=== PATIENT | female | born 1950 | race Caucasian/White ===

== ENCOUNTER 2022-04-22 11:44 | Outpatient (CLI) | payer MEDICARE, SELFPAY ==
[2022-04-22 15:16] LABS: Absolute Lymphocyte Count 1.18 X10^3/uL (0.83-4.51); Absolute Neutrophil Count 4.1 X10^3/uL (2.0-7.7); Basophil# 0.07 X10^3/uL; Basophil% 1.1 % (0-1); Eosinophil# 0.27 X10^3/uL; Eosinophils% 4.3 % (0-5); Hematocrit 37.2 % (37-47); Hemoglobin 10.6 g/dL (12.0-15.0); Lymphocyte # 1.18 X10^3/ul (0.83-4.51); Lymphocyte % 18.8 % (19-41); Mean Corp Hgb Conc 28.5 g/dL (32-36); Mean Corpuscular Hgb 25.3 pg (27.0-32.0); Mean Corpuscular Volume 88.8 fL (81-99); Mean Platelet Vol. 10.9 fl (6.2-12.0); Monocyte# 0.64 X10^3/uL; Monocyte% 10.2 % (0-10); NRBC Flagged by Analyzer 0 % (0-5); Neutrophil # 4.12 X10^3/uL (2.7-7.7); Neutrophil % 65.4 % (47-70); Platelet Count 381 K/mm3 (150-450); RBC Distribution Width CV 14.1 % (11.6-14.6); Red Blood Count 4.19 M/mm3 (4.2-5.4); White Blood Count 6.3 K/mm3 (4.4-11.0)
[2022-04-22 15:33] LABS: ALB/GLOB Ratio 0.9 RATIO (0.9-2.4); AST(SGOT) 18 U/L (15-37); Alanine Aminotransfer ALT/SGPT 20 U/L (13-56); Albumin, Serum 3.4 g/dL (3.2-5.0); Alkaline Phosphatase 63 U/L (45-117); Anion Gap 7 (5-15); BUN 11 mg/dL (7-18); CRP 4.45 mg/L (0.0-3.0); Calcium,Total 8.6 mg/dL (8.5-10.1); Chloride 105 mmol/L (98-107); EST Glomerular Filtration Rate 52 mL/min (>60); Est Glom Filt Rate - Afr Amer 63 mL/min (>60); Globulin 3.6 g/dL (2.2-4.2); Glucose 116 mg/dL (74-106); Potassium 3.9 mmol/L (3.5-5.1); Rheumatoid Factor < 10.0 IU/mL (<15); Sodium Level 140 mmol/L (136-145)
[2022-04-22 15:58] LABS: Erythrocyte Sedimentation Rate 25 mm/hr (0-30)
[2022-04-25 08:33] LABS: Hepatitis B Surface Antibody Non-Reactive; Hepatitis B Surface Antigen Non-Reactive (Nonreactive); Hepatitis C Antibody Non-Reactive (Nonreactive)
[2022-04-26 08:49] LABS: CCP IgG Antibodies 5 units (0-19)
[2022-04-26 09:31] LABS: ANTINUCLEAR ANTIBODIES DIRECT Negative (Negative)
== END 2022-04-22 23:59 | disposition home or self-care (01) ==
PROVIDERS: PCP Nurse Practitioner Primary Care; Referring Provider Internal Medicine Rheumatology; Visit Provider Internal Medicine Rheumatology
DX: M06.4 Inflammatory polyarthropathy (principal); M35.00 Sjogren syndrome, unspecified; I48.91 Unspecified atrial fibrillation; M79.7 Fibromyalgia; I10 Essential (primary) hypertension; E78.5 Hyperlipidemia, unspecified; K58.1 Irritable bowel syndrome with constipation; K21.9 Gastro-esophageal reflux disease without esophagitis; F32.A Depression, unspecified; Z87.11 Personal history of peptic ulcer disease; G47.33 Obstructive sleep apnea (adult) (pediatric)
CPT/HCPCS: 36415; 80053; 85025; 85652; 86038; 86140; 86200; 86431; 86706; 86803; 87340

== ENCOUNTER → 2022-05-24 | Outpatient (CLI) | payer MEDICARE, SELFPAY ==
[2022-05-24 09:49] LABS: Absolute Neutrophil Count 4.2 X10^3/uL (2.0-7.7); Basophil# 0.11 X10^3/uL; Basophil% 1.7 % (0-1); Eosinophil# 0.19 X10^3/uL; Eosinophils% 2.9 % (0-5); Hematocrit 40.6 % (37-47); Hemoglobin 12.3 g/dL (12.0-15.0); Lymphocyte % 22.7 % (19-41); Mean Corp Hgb Conc 30.3 g/dL (32-36); Mean Corpuscular Hgb 27.4 pg (27.0-32.0); Mean Corpuscular Volume 90.4 fL (81-99); Mean Platelet Vol. 10.6 fl (6.2-12.0); Monocyte# 0.62 X10^3/uL; Monocyte% 9.4 % (0-10); NRBC Flagged by Analyzer 0 % (0-5); Neutrophil # 4.16 X10^3/uL (2.7-7.7); Platelet Count 331 K/mm3 (150-450); RBC Distribution Width CV 15.7 % (11.6-14.6); RBC Distribution Width SD 50.2 fl (35.1-43.9); Red Blood Count 4.49 M/mm3 (4.2-5.4); White Blood Count 6.6 K/mm3 (4.4-11.0)
[2022-05-24 10:27] LABS: AST(SGOT) 19 U/L (15-37); Alanine Aminotransfer ALT/SGPT 14 U/L (13-56); Albumin, Serum 3.6 g/dL (3.2-5.0); Alkaline Phosphatase 65 U/L (45-117); Anion Gap 9 (5-15); BUN 8 mg/dL (7-18); BUN/Creat Ratio 7.3 RATIO (10-20); Calcium,Total 9.5 mg/dL (8.5-10.1); Chloride 107 mmol/L (98-107); EST Glomerular Filtration Rate 52 mL/min (>60); Est Glom Filt Rate - Afr Amer 63 mL/min (>60); Globulin 3.7 g/dL (2.2-4.2); Glucose 145 mg/dL (74-106); Potassium 3.3 mmol/L (3.5-5.1); Protein, Total 7.3 g/dL (6.4-8.2); Sodium Level 142 mmol/L (136-145)
== END | disposition home or self-care (01) ==
LOC: MTLAB 08:53
PROVIDERS: PCP Nurse Practitioner Primary Care; Referring Provider Internal Medicine Rheumatology; Visit Provider Internal Medicine Rheumatology
DX: M06.4 Inflammatory polyarthropathy (principal); M35.00 Sjogren syndrome, unspecified; I48.91 Unspecified atrial fibrillation; I10 Essential (primary) hypertension; E78.5 Hyperlipidemia, unspecified; K58.1 Irritable bowel syndrome with constipation; K21.9 Gastro-esophageal reflux disease without esophagitis; Z79.899 Other long term (current) drug therapy
CPT/HCPCS: 36415; 80053; 85025

== ENCOUNTER → 2022-06-07 | Outpatient (CLI) | payer MEDICARE, SELFPAY ==
[2022-06-07 18:02] LABS: ALB/GLOB Ratio 0.9 RATIO (0.9-2.4); AST(SGOT) 19 U/L (15-37); Alanine Aminotransfer ALT/SGPT 18 U/L (13-56); Albumin, Serum 3.4 g/dL (3.2-5.0); Alkaline Phosphatase 66 U/L (45-117); Anion Gap 8 (5-15); BUN 9 mg/dL (7-18); BUN/Creat Ratio 8.9 RATIO (10-20); Chloride 106 mmol/L (98-107); Creatinine, Serum 1.01 mg/dL (0.55-1.02); EST Glomerular Filtration Rate 57 mL/min (>60); Est Glom Filt Rate - Afr Amer 69 mL/min (>60); Globulin 3.6 g/dL (2.2-4.2); Glucose 112 mg/dL (74-106); Potassium 3.8 mmol/L (3.5-5.1); Sodium Level 142 mmol/L (136-145)
== END | disposition home or self-care (01) ==
LOC: MTLAB 15:10
PROVIDERS: PCP Nurse Practitioner Primary Care; Referring Provider Internal Medicine Rheumatology; Visit Provider Internal Medicine Rheumatology
DX: M06.4 Inflammatory polyarthropathy (principal); Z79.899 Other long term (current) drug therapy
CPT/HCPCS: 36415; 80053

== ENCOUNTER → 2022-06-20 | Outpatient (CLI) | payer MEDICARE, SELFPAY ==
[2022-06-20 15:46] LABS: Absolute Lymphocyte Count 1.31 X10^3/uL (0.83-4.51); Absolute Neutrophil Count 3.7 X10^3/uL (2.0-7.7); Basophil# 0.07 X10^3/uL; Basophil% 1.2 % (0-1); Eosinophil# 0.16 X10^3/uL; Eosinophils% 2.7 % (0-5); Hematocrit 39.8 % (37-47); Hemoglobin 12.6 g/dL (12.0-15.0); Lymphocyte # 1.31 X10^3/ul (0.83-4.51); Lymphocyte % 22.5 % (19-41); Mean Corp Hgb Conc 31.7 g/dL (32-36); Mean Corpuscular Hgb 28.6 pg (27.0-32.0); Mean Corpuscular Volume 90.2 fL (81-99); Monocyte# 0.62 X10^3/uL; Monocyte% 10.6 % (0-10); NRBC Flagged by Analyzer 0 % (0-5); Neutrophil # 3.65 X10^3/uL (2.7-7.7); Neutrophil % 62.7 % (47-70); Platelet Count 304 K/mm3 (150-450); RBC Distribution Width CV 15.9 % (11.6-14.6); RBC Distribution Width SD 51.3 fl (35.1-43.9); Red Blood Count 4.41 M/mm3 (4.2-5.4); White Blood Count 5.8 K/mm3 (4.4-11.0)
[2022-06-20 16:44] LABS: AST(SGOT) 17 U/L (15-37); Alanine Aminotransfer ALT/SGPT 14 U/L (13-56); Albumin, Serum 3.4 g/dL (3.2-5.0); Alkaline Phosphatase 63 U/L (45-117); Anion Gap 8 (5-15); BUN 10 mg/dL (7-18); BUN/Creat Ratio 10.8 RATIO (10-20); Calcium,Total 9.1 mg/dL (8.5-10.1); Chloride 106 mmol/L (98-107); Creatinine, Serum 0.92 mg/dL (0.55-1.02); EST Glomerular Filtration Rate 64 mL/min (>60); Est Glom Filt Rate - Afr Amer 77 mL/min (>60); Globulin 3.5 g/dL (2.2-4.2); Glucose 108 mg/dL (74-106); Potassium 3.4 mmol/L (3.5-5.1); Protein, Total 6.9 g/dL (6.4-8.2); Sodium Level 142 mmol/L (136-145)
== END | disposition home or self-care (01) ==
LOC: MTLAB 14:03
PROVIDERS: PCP Nurse Practitioner Primary Care; Referring Provider Internal Medicine Rheumatology; Visit Provider Internal Medicine Rheumatology
DX: M06.4 Inflammatory polyarthropathy (principal); Z79.899 Other long term (current) drug therapy
CPT/HCPCS: 36415; 80053; 85025

== ENCOUNTER → 2023-01-02 | Outpatient (CLI) | payer MEDICARE, SELFPAY ==
[2023-01-02 17:58] LABS: Absolute Lymphocyte Count 1.45 X10^3/uL (0.83-4.51); Absolute Neutrophil Count 5.4 X10^3/uL (2.0-7.7); Basophil# 0.08 X10^3/uL; Eosinophil# 0.16 X10^3/uL; Hematocrit 44.2 % (37-47); Hemoglobin 13.9 g/dL (12.0-15.0); Lymphocyte # 1.45 X10^3/ul (0.83-4.51); Lymphocyte % 18.4 % (19-41); Mean Corp Hgb Conc 31.4 g/dL (32-36); Mean Corpuscular Hgb 30.4 pg (27.0-32.0); Mean Corpuscular Volume 96.7 fL (81-99); Mean Platelet Vol. 10.7 fl (6.2-12.0); Monocyte# 0.83 X10^3/uL; Monocyte% 10.5 % (0-10); NRBC Flagged by Analyzer 0 % (0-5); Neutrophil # 5.35 X10^3/uL (2.7-7.7); Neutrophil % 67.8 % (47-70); Platelet Count 277 K/mm3 (150-450); RBC Distribution Width CV 14.9 % (11.6-14.6); RBC Distribution Width SD 52.6 fl (35.1-43.9); Red Blood Count 4.57 M/mm3 (4.2-5.4); White Blood Count 7.9 K/mm3 (4.4-11.0)
[2023-01-02 18:55] LABS: ALB/GLOB Ratio 1.1 RATIO (0.9-2.4); AST(SGOT) 19 U/L (15-37); Alanine Aminotransfer ALT/SGPT 22 U/L (13-56); Albumin, Serum 3.7 g/dL (3.2-5.0); Alkaline Phosphatase 65 U/L (45-117); Anion Gap 5 (5-15); BUN 9 mg/dL (7-18); BUN/Creat Ratio 9.6 RATIO (10-20); Calcium,Total 9.2 mg/dL (8.5-10.1); Chloride 107 mmol/L (98-107); Creatinine, Serum 0.94 mg/dL (0.55-1.02); EST Glomerular Filtration Rate 63 mL/min (>60); Est Glom Filt Rate - Afr Amer 76 mL/min (>60); Globulin 3.5 g/dL (2.2-4.2); Glucose 102 mg/dL (74-106); Potassium 3.7 mmol/L (3.5-5.1); Protein, Total 7.2 g/dL (6.4-8.2); Sodium Level 139 mmol/L (136-145)
== END | disposition home or self-care (01) ==
LOC: MTLAB 14:44
PROVIDERS: PCP Nurse Practitioner Primary Care; Referring Provider Internal Medicine Rheumatology; Visit Provider Internal Medicine Rheumatology
DX: M06.4 Inflammatory polyarthropathy (principal); Z79.899 Other long term (current) drug therapy
CPT/HCPCS: 36415; 80053; 85025

== ENCOUNTER → 2023-02-20 | Outpatient (CLI) | payer MEDICARE, SELFPAY ==
[2023-02-20 18:31] LABS: Absolute Lymphocyte Count 1.64 X10^3/uL (0.83-4.51); Absolute Neutrophil Count 6.5 X10^3/uL (2.0-7.7); Basophil# 0.12 X10^3/uL; Basophil% 1.3 % (0-1); Eosinophil# 0.29 X10^3/uL; Hematocrit 44.3 % (37-47); Hemoglobin 14.4 g/dL (12.0-15.0); Lymphocyte # 1.64 X10^3/ul (0.83-4.51); Lymphocyte % 17.2 % (19-41); Mean Corp Hgb Conc 32.5 g/dL (32-36); Mean Corpuscular Hgb 31.2 pg (27.0-32.0); Mean Corpuscular Volume 95.9 fL (81-99); Monocyte# 0.96 X10^3/uL; Monocyte% 10.1 % (0-10); NRBC Flagged by Analyzer 0 % (0-5); Neutrophil # 6.52 X10^3/uL (2.7-7.7); Neutrophil % 68.2 % (47-70); Platelet Count 309 K/mm3 (150-450); RBC Distribution Width CV 14.1 % (11.6-14.6); Red Blood Count 4.62 M/mm3 (4.2-5.4); White Blood Count 9.6 K/mm3 (4.4-11.0)
[2023-02-20 18:50] LABS: ALB/GLOB Ratio 0.9 RATIO (0.9-2.4); AST(SGOT) 16 U/L (15-37); Alanine Aminotransfer ALT/SGPT 14 U/L (13-56); Albumin, Serum 3.6 g/dL (3.2-5.0); Alkaline Phosphatase 69 U/L (45-117); Anion Gap 6 (5-15); BUN 13 mg/dL (7-18); BUN/Creat Ratio 12.1 RATIO (10-20); Calcium,Total 9.4 mg/dL (8.5-10.1); Chloride 107 mmol/L (98-107); Creatinine, Serum 1.07 mg/dL (0.55-1.02); EST Glomerular Filtration Rate 54 mL/min (>60); Est Glom Filt Rate - Afr Amer 65 mL/min (>60); Globulin 3.8 g/dL (2.2-4.2); Glucose 120 mg/dL (74-106); Potassium 3.7 mmol/L (3.5-5.1); Protein, Total 7.4 g/dL (6.4-8.2); Sodium Level 140 mmol/L (136-145)
== END | disposition home or self-care (01) ==
LOC: MTLAB 15:09
PROVIDERS: PCP Nurse Practitioner Primary Care; Referring Provider Internal Medicine Rheumatology; Visit Provider Internal Medicine Rheumatology
DX: M06.4 Inflammatory polyarthropathy (principal); M79.7 Fibromyalgia; Z79.899 Other long term (current) drug therapy
CPT/HCPCS: 36415; 80053; 85025

== ENCOUNTER → 2023-05-03 | Outpatient (CLI) | payer MEDICARE, SELFPAY ==
[2023-05-03 15:15] LABS: Absolute Lymphocyte Count 1.45 X10^3/uL (0.83-4.51); Absolute Neutrophil Count 4.8 X10^3/uL (2.0-7.7); Basophil# 0.09 X10^3/uL; Basophil% 1.2 % (0-1); Eosinophil# 0.17 X10^3/uL; Eosinophils% 2.3 % (0-5); Hematocrit 46.2 % (37-47); Hemoglobin 14.5 g/dL (12.0-15.0); Lymphocyte # 1.45 X10^3/ul (0.83-4.51); Lymphocyte % 19.8 % (19-41); Mean Corp Hgb Conc 31.4 g/dL (32-36); Mean Corpuscular Hgb 31.2 pg (27.0-32.0); Mean Corpuscular Volume 99.4 fL (81-99); Mean Platelet Vol. 11.3 fl (6.2-12.0); Monocyte% 10.9 % (0-10); NRBC Flagged by Analyzer 0 % (0-5); Neutrophil # 4.77 X10^3/uL (2.7-7.7); Neutrophil % 65.4 % (47-70); Platelet Count 266 K/mm3 (150-450); RBC Distribution Width CV 14.5 % (11.6-14.6); RBC Distribution Width SD 51.3 fl (35.1-43.9); Red Blood Count 4.65 M/mm3 (4.2-5.4); White Blood Count 7.3 K/mm3 (4.4-11.0)
[2023-05-03 15:39] LABS: ALB/GLOB Ratio 1.1 RATIO (0.9-2.4); AST(SGOT) 17 U/L (15-37); Alanine Aminotransfer ALT/SGPT 17 U/L (13-56); Albumin, Serum 3.7 g/dL (3.2-5.0); Alkaline Phosphatase 67 U/L (45-117); Anion Gap 7 (5-15); BUN 12 mg/dL (7-18); BUN/Creat Ratio 11.2 RATIO (10-20); Calcium,Total 9.2 mg/dL (8.5-10.1); Chloride 106 mmol/L (98-107); Creatinine, Serum 1.07 mg/dL (0.55-1.02); EST Glomerular Filtration Rate 54 mL/min (>60); Est Glom Filt Rate - Afr Amer 65 mL/min (>60); Globulin 3.5 g/dL (2.2-4.2); Glucose 96 mg/dL (74-106); Potassium 3.5 mmol/L (3.5-5.1); Protein, Total 7.2 g/dL (6.4-8.2); Sodium Level 141 mmol/L (136-145)
== END | disposition home or self-care (01) ==
LOC: MTLAB 11:54
PROVIDERS: PCP Nurse Practitioner Primary Care; Referring Provider Internal Medicine Rheumatology; Visit Provider Internal Medicine Rheumatology
DX: M06.4 Inflammatory polyarthropathy (principal); M35.00 Sjogren syndrome, unspecified; Z79.899 Other long term (current) drug therapy
CPT/HCPCS: 36415; 80053; 85025

== ENCOUNTER → 2023-07-21 | Outpatient (CLI) | payer MEDICARE, SELFPAY ==
[2023-07-21 15:17] LABS: Absolute Lymphocyte Count 0.84 X10^3/uL (0.83-4.51); Absolute Neutrophil Count 5.6 X10^3/uL (2.0-7.7); Basophil# 0.07 X10^3/uL; Basophil% 0.9 % (0-1); Eosinophil# 0.16 X10^3/uL; Eosinophils% 2.2 % (0-5); Hematocrit 45.3 % (37-47); Hemoglobin 14.9 g/dL (12.0-15.0); Lymphocyte # 0.84 X10^3/ul (0.83-4.51); Lymphocyte % 11.3 % (19-41); Mean Corp Hgb Conc 32.9 g/dL (32-36); Mean Corpuscular Hgb 32.9 pg (27.0-32.0); Mean Platelet Vol. 10.6 fl (6.2-12.0); Monocyte# 0.75 X10^3/uL; Monocyte% 10.1 % (0-10); NRBC Flagged by Analyzer 0 % (0-5); Neutrophil # 5.58 X10^3/uL (2.7-7.7); Neutrophil % 75.1 % (47-70); Platelet Count 369 K/mm3 (150-450); RBC Distribution Width CV 13.8 % (11.6-14.6); RBC Distribution Width SD 49.6 fl (35.1-43.9); Red Blood Count 4.53 M/mm3 (4.2-5.4); White Blood Count 7.4 K/mm3 (4.4-11.0)
[2023-07-21 15:37] LABS: ALB/GLOB Ratio 0.9 RATIO (0.9-2.4); AST(SGOT) 19 U/L (15-37); Alanine Aminotransfer ALT/SGPT 16 U/L (13-56); Albumin, Serum 3.4 g/dL (3.2-5.0); Alkaline Phosphatase 74 U/L (45-117); Anion Gap 7 (5-15); BUN 14 mg/dL (7-18); Calcium,Total 9.4 mg/dL (8.5-10.1); Chloride 106 mmol/L (98-107); Creatinine, Serum 1.08 mg/dL (0.55-1.02); EST Glomerular Filtration Rate 53 mL/min (>60); Est Glom Filt Rate - Afr Amer 64 mL/min (>60); Globulin 3.9 g/dL (2.2-4.2); Glucose 94 mg/dL (74-106); Potassium 4.4 mmol/L (3.5-5.1); Protein, Total 7.3 g/dL (6.4-8.2); Sodium Level 138 mmol/L (136-145)
== END | disposition home or self-care (01) ==
LOC: MTLAB 13:19
PROVIDERS: PCP Nurse Practitioner Primary Care; Referring Provider Internal Medicine Rheumatology; Visit Provider Internal Medicine Rheumatology
DX: M06.4 Inflammatory polyarthropathy (principal); M79.7 Fibromyalgia; Z79.899 Other long term (current) drug therapy
CPT/HCPCS: 36415; 80053; 85025

== ENCOUNTER → 2023-11-16 | Outpatient (CLI) | payer MEDICARE, SELFPAY ==
[2023-11-16 12:07] LABS: Absolute Lymphocyte Count 1.49 X10^3/uL (0.83-4.51); Absolute Neutrophil Count 6.4 X10^3/uL (2.0-7.7); Basophil# 0.13 X10^3/uL; Basophil% 1.4 % (0-1); Eosinophil# 0.22 X10^3/uL; Eosinophils% 2.4 % (0-5); Hemoglobin 15.1 g/dL (12.0-15.0); Lymphocyte # 1.49 X10^3/ul (0.83-4.51); Lymphocyte % 16.1 % (19-41); Mean Corp Hgb Conc 32.1 g/dL (32-36); Mean Corpuscular Hgb 32.3 pg (27.0-32.0); Mean Corpuscular Volume 100.6 fL (81-99); Mean Platelet Vol. 10.2 fl (6.2-12.0); Monocyte# 1.02 X10^3/uL; Monocyte% 11.1 % (0-10); NRBC Flagged by Analyzer 0 % (0-5); Neutrophil # 6.35 X10^3/uL (2.7-7.7); Neutrophil % 68.8 % (47-70); Platelet Count 309 K/mm3 (150-450); RBC Distribution Width CV 14.1 % (11.6-14.6); RBC Distribution Width SD 51.5 fl (35.1-43.9); Red Blood Count 4.67 M/mm3 (4.2-5.4); White Blood Count 9.2 K/mm3 (4.4-11.0)
[2023-11-16 13:18] LABS: AST(SGOT) 15 U/L (15-37); Alanine Aminotransfer ALT/SGPT 14 U/L (13-56); Albumin, Serum 3.6 g/dL (3.2-5.0); Alkaline Phosphatase 80 U/L (45-117); Anion Gap 11 (5-15); BUN 12 mg/dL (7-18); BUN/Creat Ratio 10.3 RATIO (10-20); Calcium,Total 9.2 mg/dL (8.5-10.1); Chloride 107 mmol/L (98-107); Creatinine, Serum 1.17 mg/dL (0.55-1.02); EST Glomerular Filtration Rate 48 mL/min (>60); Est Glom Filt Rate - Afr Amer 58 mL/min (>60); Globulin 3.6 g/dL (2.2-4.2); Glucose 112 mg/dL (74-106); Protein, Total 7.2 g/dL (6.4-8.2); Sodium Level 143 mmol/L (136-145)
== END | disposition home or self-care (01) ==
LOC: MTLAB 10:36
PROVIDERS: PCP Nurse Practitioner Primary Care; Referring Provider Internal Medicine Rheumatology; Visit Provider Internal Medicine Rheumatology
DX: M06.4 Inflammatory polyarthropathy (principal); M79.7 Fibromyalgia; Z79.899 Other long term (current) drug therapy
CPT/HCPCS: 36415; 80053; 85025

== ENCOUNTER → 2023-12-21 | Outpatient (CLI) | payer MEDICARE, SELFPAY ==
[2023-12-21 10:47] LABS: ALB/GLOB Ratio 1.1 RATIO (0.9-2.4); AST(SGOT) 19 U/L (15-37); Alanine Aminotransfer ALT/SGPT 15 U/L (13-56); Albumin, Serum 3.7 g/dL (3.2-5.0); Alkaline Phosphatase 79 U/L (45-117); Anion Gap 5 (5-15); BUN 11 mg/dL (7-18); BUN/Creat Ratio 9.5 RATIO (10-20); Chloride 107 mmol/L (98-107); Creatinine, Serum 1.16 mg/dL (0.55-1.02); EST Glomerular Filtration Rate 49 mL/min (>60); Est Glom Filt Rate - Afr Amer 59 mL/min (>60); Globulin 3.4 g/dL (2.2-4.2); Glucose 111 mg/dL (74-106); Potassium 3.5 mmol/L (3.5-5.1); Protein, Total 7.1 g/dL (6.4-8.2); Sodium Level 141 mmol/L (136-145)
== END | disposition home or self-care (01) ==
LOC: MTLAB 08:27
PROVIDERS: PCP Nurse Practitioner Primary Care; Referring Provider Internal Medicine Rheumatology; Visit Provider Internal Medicine Rheumatology
DX: M06.4 Inflammatory polyarthropathy (principal); Z79.899 Other long term (current) drug therapy
CPT/HCPCS: 36415; 80053

== ENCOUNTER 2024-01-16 13:42 | Inpatient (IN) | payer MEDICARE, SELFPAY ==
[2024-01-16] VITALS (32 sets, daily range): BP systolic 49–143; BP diastolic 28–97; PULSE 6–144; RESP 13–24; TEMP 36.2–36.8; O2SAT 76–100; BMI 44.1; BMI 39.2
--- NOTE | 2024-01-16 13:44 | EKG12_ITS ---
Test Reason : ARREST Blood Pressure : / mmHG Vent. Rate : 068 BPM Atrial Rate : 000 BPM P-R Int : 000 ms QRS Dur : 088 ms QT Int : 452 ms P-R-T Axes : 000 033 229 degrees QTc Int : 480 ms Atrial fibrillation with premature ventricular or aberrantly conducted complexes ST & T wave abnormality, consider inferior ischemia ST & T wave abnormality, consider anterolateral ischemia Prolonged QT Abnormal ECG Confirmed by BUDDY FLORES, FABY ([id number]), newspaper managing editor CARLTON GERONIMO ([id number]) on 01/18/2024 11:18:40 AM Referred By: OSEI Confirmed By:FABY GOODWIN MD
--- NOTE | 2024-01-16 13:54 | EKG12_ITS ---
Test Reason : AFIB Blood Pressure : / mmHG Vent. Rate : 144 BPM Atrial Rate : 000 BPM P-R Int : 000 ms QRS Dur : 080 ms QT Int : 310 ms P-R-T Axes : 000 043 076 degrees QTc Int : 479 ms Critical Test Result: High HR Atrial fibrillation Nonspecific ST and T wave abnormality Abnormal ECG When compared with ECG of 16-JAN-2024 13:44, MANUAL COMPARISON REQUIRED, DATA IS UNCONFIRMED Confirmed by BUDDY FLORES, FABY ([id number]), medical editor CARLTON GERONIMO ([id number]) on 01/17/2024 1:14:13 PM Referred By: GERMÁN Confirmed By:FABY GOODWIN MD
--- NOTE | 2024-01-16 13:56 | CT_ITS ---
STUDY: CT BRAIN WITHOUT CONTRAST REASON FOR EXAM: Female, 73 years old. Unresponsive RADIATION DOSAGE (If Supplied By Facility): CTDIvol = ( 44.99 ) mGy, DLP = ( 796.11 ) mGycm TECHNIQUE: Transaxial CT imaging of the brain was performed without administration of intravenous contrast material. Individualized dose optimization techniques were used for this CT. COMPARISON: No relevant priors. FINDINGS: Normal soft tissue structures. There is a 7.6 mm x 5.8 mm ossification along the posterior inner table of the left frontal bone. This may represent a calcified meningioma. There is mild cerebral atrophy with widening of the extra-axial spaces and ventricular dilatation. Normal white matter tracts of the cerebral hemispheres. Normal basal ganglia and thalami. Normal brainstem. Normal cerebellum. There is no intracranial hemorrhage. There are no findings of an acute ischemic infarction. Mucosal thickening of the posterior aspect of the right ethmoid sinus. CT/Brain/Head without Contrast IMPRESSION: Chronic involutional changes of the brain. Questionable 7.6 mm x 5.8 mm calcified meningioma along the posterior inner table of the left frontal bone. Electronically Signed: Nathan Levy MD at 14:42 EDT ,
--- NOTE | 2024-01-16 13:58 | NURSING ---
NO OLD EKGS
[2024-01-16 14:03] LABS: Hematocrit 50.2 % (37-47); Mean Corp Hgb Conc 31.9 g/dL (32-36); Mean Corpuscular Hgb 31.3 pg (27.0-32.0); Mean Corpuscular Volume 98.2 fL (81-99); POSITIVE COUNT YES; POSITIVE MORPHOLOGY YES; Platelet Count 261 K/mm3 (150-450); RBC Distribution Width CV 12.8 % (11.6-14.6); RBC Distribution Width SD 46.5 fl (35.1-43.9); Red Blood Count 5.11 M/mm3 (4.2-5.4); White Blood Count 7.9 K/mm3 (4.4-11.0)
[2024-01-16 14:04] LABS: Differential Indicated MANUAL DIFF
[2024-01-16] MEDS: 0.9% Normal Saline (1000mL) 1,000 ML 999 ML IV (14:04)
[2024-01-16 14:12] LABS: International Normalized Ratio 1.6; Prothrombin Time (Protime)PT. 19.4 SECONDS (11.7-14.9)
--- NOTE | 2024-01-16 14:14 | EX.ED.CRITCA ---
HPI History of Present Illness Chief Complaint: CPR Informant: spouse/S.O. and EMS Onset/Context/Timing Onset: Today Timing: Continuous Current Severity: Severe Maximum Severity: Severe Associated Symptoms Associated Symptoms: abdominal pain, chest pain, chills, cough, fever, vomiting, diarrhea, palpitations, suicidal thoughts and other Narrative Narrative: 73-year-old female history of A-fib and prediabetes. went out to do some errands when he came home she was sitting in a reclining chair under her bottom split-level. He went down to see her and she was unresponsive. He tried to wake her up by shaking her hand and she did not come to. He called 911 who wanted him to place the patient on the floor and started CPR which he did. Squad arrived quickly. According to them the patient was unresponsive in asystole. They placed a left humeral IO started CPR and gave her 2 rounds of epinephrine with return of spontaneous circulation and pulse. Patient remained unresponsive the entire time. They placed an i-gel airway and came to the hospital. states she has had no recent illness. 1 week ago she was in [place] [facility] in [place] for A-fib RVR which resolved and she went home after medication. Prior similar symptoms: No Recent Illness/Hospitalization: No [facility] Medical History Cataract Kidney stones Home Medications atorvastatin 40 mg tablet 40 mg PO DAILY 07/21/23 [History Last Taken Unknown] azelaic acid 15 % topical foam 1 applic topical BID 07/21/23 [History Last Taken Unknown] docusate sodium 100 mg capsule (Colace) 100 mg PO BID 07/21/23 [History Last Taken Unknown] duloxetine 30 mg capsule,delayed release 30 mg PO DAILY 07/21/23 [History Last Taken Unknown] ferrous sulfate 325 mg (65 mg iron) tablet 325 mg PO DAILY 07/21/23 [History Last Taken Unknown] fluticasone propionate 50 mcg/actuation nasal spray,suspension (Flonase Allergy Relief) 1 spray intranasal DAILY 07/21/23 [History Last Taken Unknown] methotrexate 2.5 mg/mL oral solution PO 07/21/23 [History Last Taken Unknown] pantoprazole 40 mg tablet,delayed release 40 mg PO DAILY 07/21/23 [History Last Taken Unknown] rivaroxaban 20 mg tablet (Xarelto) 20 mg PO DAILY 07/21/23 [History Last Taken Unknown] sotalol 120 mg tablet 120 mg PO BID 07/21/23 [History Last Taken Unknown] tramadol 50 mg tablet 50 mg PO BID PRN 07/21/23 [History Last Taken Unknown] Allergy/AdvReac Type Severity Reaction Status Date / Time thimerosal Allergy Mild Other Verified 01/16/24 14:59 meperidine [From Demerol] AdvReac Nausea/Vom/ Verified 01/16/24 14:59 Diarrhea Surgical History History of carpal tunnel surgery History of hysterectomy Hx of cholecystectomy Social History Smoking Status: Never smoker ROS ROS ED ROS Narrative Patient is unable to give any history due to intubation. states she has not been recently ill. Review of Systems ROS Unobtainable: Denies due to endotracheal tube Constitutional Constitutional ED: Denies chills or fever(s) Eyes Eyes: Denies blurry vision ENT ENT ED: Denies ear pain Cardiovascular Cardiovascular: Denies chest pain Respiratory/Chest Respiratory/Chest: Denies cough or dyspnea Gastrointestinal Gastrointestinal: Denies abdominal pain Genitourinary Genitourinary ED: Denies dysuria or hematuria Musculoskeletal Musculoskeletal: Denies arthralgias Integumentary Denies abscess Neurologic Neurologic: Denies headache(s) Psychiatric Psychiatric: Denies anxiety or depression Endocrine Endocrinology: Denies polydipsia Hematologic/Lymphatic Hematologic/Lymphatic: Denies easy bleeding, easy bruising or lymphadenopathy Allergic/Immunologic Allergic/Immunologic ED: Denies mouth swelling, tongue swelling or urticaria EXAM Physical Exam Narrative Exam Narrative: 71-year-old female brought in by [employer]. Currently has a spontaneous and palpable carotid and radial pulse. She is completely unresponsive. She has an i-gel in place which I removed and placed a 7F ET tube the first attempt using the glide scope. Bilateral breath sounds were heard immediately. With good color change. H EENT exam pupils are dilated nonreactive. Neck nontender no signs of trauma. Lungs clear to auscultation bilaterally with bagging. Heart regular rhythm rate about 75 no murmur. Chest wall and ribs no signs of trauma. Abdomen soft no signs of trauma. Nondistended. Pelvic girdle intact. No signs of trauma to her upper or lower extremities. No deformity. They are warm to the touch. Neurologically she is completely unresponsive to verbal or noxious stimuli. She has attempted some spontaneous agonal breathing on her own. She is not moving her extremities. Const Vital Signs: 01/16/24 13:43 01/16/24 13:43 01/16/24 13:50 Temperature Temperature Source Pulse Rate 76 Respiratory Rate 18 Respiratory Effort Respiratory Pattern Blood Pressure Blood Pressure Mean Pulse Ox 85 87 Oxygen Delivery Method Ambu-Bag Ambu-Bag Ambu-Bag Oxygen Flow Rate (L/min) 95 15 Fraction of Inspired Oxygen (FIO2) 01/16/24 13:56 01/16/24 13:58 01/16/24 14:05 Temperature 97.7 F L Temperature Source Axillary Pulse Rate 6 L 62 Respiratory Rate 23 H 24 H Respiratory Effort Respiratory Pattern Blood Pressure 49/28 L 73/47 L Blood Pressure Mean 35 55 Pulse Ox 76 85 96 Oxygen Delivery Method Ambu-Bag Ambu-Bag Mechanical Ventilator Oxygen Flow Rate (L/min) 15 15 Fraction of Inspired Oxygen (FIO2) 01/16/24 14:07 01/16/24 14:11 01/16/24 14:18 Temperature 97.7 F L 97.7 F L Temperature Source Axillary Axillary Pulse Rate 65 72 57 L Respiratory Rate 14 14 16 Respiratory Effort Respiratory Pattern Blood Pressure 73/47 L 96/79 120/86 H Blood Pressure Mean 55 84 97 Pulse Ox 100 100 100 Oxygen Delivery Method Mechanical Ventilator Mechanical Ventilator Mechanical Ventilator Oxygen Flow Rate (L/min) 15 Fraction of Inspired Oxygen (FIO2) 01/16/24 14:32 01/16/24 14:41 01/16/24 14:47 Temperature 97.5 F L 97.5 F L Temperature Source Axillary Axillary Pulse Rate 69 60 81 Respiratory Rate 14 14 16 Respiratory Effort Respiratory Pattern Normal Blood Pressure 123/75 H 126/51 H Blood Pressure Mean 91 76 Pulse Ox 96 100 100 Oxygen Delivery Method Mechanical Ventilator Mechanical Ventilator Oxygen Flow Rate (L/min) Fraction of Inspired Oxygen (FIO2) 100 01/16/24 14:57 01/16/24 14:58 01/16/24 15:10 Temperature Temperature Source Pulse Rate 68 Respiratory Rate 14 Respiratory Effort Mechanically Ventilated Respiratory Pattern Blood Pressure 108/57 L Blood Pressure Mean 74 Pulse Ox 100 Oxygen Delivery Method Mechanical Ventilator Oxygen Flow Rate (L/min) Fraction of Inspired Oxygen (FIO2) 40 Positive well nourished and well developed; Negative for cachectic, contractures or unkempt General Appearance ED: well developed and pallor; Negative for unkempt, cachectic, contractures or NAD Nutritional Appearance: Negative for cachectic HEENT normocephalic and atraumatic; Negative for trauma, cyanosis of lips/distal nose or tenderness Eyes Negative for PERRL or EOMs intact bilaterally Eyes Narrative: Pupils are dilated about 5 mm bilaterally and nonreactive to light. General Eye ED: Negative for pale conjunctiva or scleral icterus Neck No full ROM, no lymphadenopathy, supple and no JVD Cardio S1 normal heart sound, S2 normal heart sound and no murmurs; Negative for regular rate or regular rhythm Cardio Narrative: A-fib rate about 70. Rate: Negative for bradycardia or tachycardic Rhythm: abnormal rhythm GI non-tender, non-distended and no masses Inspection: Negative for abdominal distention Auscultation: normoactive bowel sounds Palpation: soft; Negative for tender or guarding Neuro No oriented x3 Neuro Narrative: Pupils fixed and dilated. Nonreactive to light. Unresponsive to noxious or verbal stimuli. Psych Psych Narrative: Unresponsive. Appearance: Negative for unkempt Skin General Skin Exam: pallor; Negative for jaundice Lesions: no lesions Rashes: no rashes Trauma: Negative for abrasion or laceration MDM MDM MDM Narrative Medical decision making narrative: 73-year-old female found down at home by her . Unsure if this is an acute cardiac dysrhythmia, MA, intracranial bleed or other causes. She has had no recent illness. Currently she is intubated. Nurses are placing IVs. She will be taken for a CT and undergo cardiac workup. I did speak to her at this time she is a full go. They have not discussed end-of-life measures at home that he is aware of. He does not believe she is on blood thinners at this time. I also spoke to cardiology on-call because her prehospital EKG possibly showed signs of a posterior MA but the current EKG shows A-fib with a rate of 68. Repeat exam at 3:15 PM unchanged. Patient has not made any purposeful movements. Currently her pupils are 2 to 3 mm are still nonreactive but they are not dilated like they were initially. She still unresponsive. I spoke to her when he arrived in triage and also now at the bedside. He understands that she is critically ill. He understands that she might have had a hypoxic injury to her brain but we just do not know at this time. He does know her current test results. Currently she is a full go. I have already spoken to the hospitalist. She will be admitted to the ICU. History & Record Review Discussion w/independent historian: EMS personnel, Family and Friend Additional record(s) reviewed:: Prior inpatient record, Prior outpatient record, Prior ED visit and Prior labs Lab Data Attestation: I reviewed the patient's lab results. Lab results narrative: CBC shows a white count 7.9. H&H is 16 and 50. Platelets are 261. PT and INR are 19 and 1.6. Chemistries show a gap of 13. BUN of 11 creatinine 1.56. Glucose 313. Troponins elevated 82. Chest x-ray chronic changes. CAT scan of the brain no acute process. No bleed. Read by the radiologist and reviewed by me. Blood gas, ABG: Shows a pH of 7.25, pCO2 of 34 and pO2 of 265. Sat 99%. Labs: Laboratory Results - last 24 hr 01/16/24 01/16/24 13:50 14:08 WBC 7.9 RBC 5.11 Hgb 16.0 H Hct 50.2 H MCV 98.2 MCH 31.3 MCHC 31.9 L RDW Std Deviation 46.5 H RDW Coeff of Will 12.8 Plt Count 261 MPV 10.0 Neut % (Auto) Not Reportable Absolute Neuts (auto) 4.3 Absolute Lymphs (auto) 2.40 Total Counted 100 Neutrophils % (Manual) 49 Band Neutrophils % 5 Lymphocytes % (Manual) 31 Monocytes % (Manual) 4 Eosinophils % (Manual) 1 Basophils % (Manual) 2 H Metamyelocytes % 6 H Myelocytes % 2 H Diff Path Review May foll Platelet Estimate ADEQUATE RBC Morphology NORM C+C PT 19.4 H INR 1.6 Sodium 138 Potassium 4.2 Chloride 103 Carbon Dioxide 22.0 Anion Gap 13 BUN 11 Creatinine 1.56 H Estim Creat Clear Calc 45.37 Est GFR (MDRD) Af Amer 42 L Est GFR (MDRD) Non-Af 35 L BUN/Creatinine Ratio 7.1 L Glucose 313 H Calcium 9.2 Troponin I High Sens 82 H POC Glucose 263 H ABG Data ABG results: ABG 01/16/24 14:50 Specimen Type ART Sample Site R Radial pH 7.26 L Bicarbonate Actual 15.5 L Total CO2 17 Base Excess -12 L O2 Saturation 100 H O2 % 100.0 ABG pCO2 34.7 L ABG pO2 265 H Joseluis Test Positive Respiration Rate 14 O2 Delivery Device ET Tube Vent Mode AC Tidal Volume 450.0 POC PEEP 5 Radiography Chest X-Ray - ED: 1 View, Read by ED Physician, Heart, Lungs, Mediastinum, Bony Structures, No Acute Disease and Chronic Changes Diagnostic Testing: Clinical Impression(s) from Imaging Studies Brain CT 01/16/24 13:56 IMPRESSION: Chronic involutional changes of the brain. Questionable 7.6 mm x 5.8 mm calcified meningioma along the posterior inner table of the left frontal bone. Electronically Signed: Nathan Levy MD at 14:42 EDT , Chest X-Ray 01/16/24 14:15 IMPRESSION: The tip of the endotracheal tube is at 3.1 cm proximal to the morro. The tip of the orogastric tube is in the body of the stomach. The lungs are clear. Electronically Signed: Nathan Levy MD at 14:27 EDT , Chest x-ray, portable, single view interpreted by myself shows the ET tube well above the morro. Normal cardiac silhouette. Normal lung gonzalez. No acute process. Chronic changes. Rhythm Strip Rhythm Strip: A-fib Rate: 68 Ectopy: None EKG Initial EKG: Attestation: I personally reviewed and interpreted this EKG as follows: Interpretation: Atrial Fibrillation, Inverted T-Waves and S-T Depression Comments: A-fib rate is 68 no acute signs of MA. Inverted T waves V1 through V6. Procedures Other Procedures Procedure(s): Endotracheal tube with ablation. Patient had an i-gel in place. It was removed. Using glide scope a 7F ET tube was placed on the first attempt without difficulty. Bilateral breath sounds were heard. Good color change. Critical Care Time Critical Care Time: Yes Critical care time (excluding procedures): 30-74 minutes, Including time spent:, Discussing w/Patient &/or Family/Can Maker, Discussing w/Consultants, Arranging Admission or Transfer, Performing Direct Patient Care at Bedside and - (35 minutes) Discharge Plan Triage Chief Complaint: CPR ED Provider: Pawel Tolbert Dx/Rx/DC Orders Clinical Impression: Acute kidney injury, Asystole, Cardiopulmonary arrest, Endotracheally intubated, History of atrial fibrillation, Metabolic acidosis, History of diabetes mellitus Prescriptions: No Action duloxetine 30 mg capsule,delayed release(DR/EC) 30 mg PO DAILY atorvastatin 40 mg tablet 40 mg PO DAILY azelaic acid 15 % foam 1 applic topical BID sotalol 120 mg tablet 120 mg PO BID Xarelto 20 mg tablet 20 mg PO DAILY Rx Instructions: must administer with evening meal docusate sodium [Colace] 100 mg capsule 100 mg PO BID pantoprazole 40 mg tablet,delayed release (DR/EC) 40 mg PO DAILY fluticasone propionate [Flonase Allergy Relief] 50 mcg/actuation spray,suspension 1 spray intranasal DAILY Rx Instructions: administer into each nostril ferrous sulfate 325 mg (65 mg iron) tablet 325 mg PO DAILY tramadol 50 mg tablet 50 mg PO BID PRN methotrexate 2.5 mg/mL solution PO Primary Care Provider: Erasto Mata NP Referrals: Erasto Mata HEALTH SCIENCE INSTRUCTOR, HEALTH SCIENCE INSTRUCTOR-C [Primary Care Provider] - Disposition Disposition: Acute Care Hospital [facility]
--- NOTE | 2024-01-16 14:15 | RAD_ITS ---
STUDY: X-RAY CHEST REASON FOR EXAM: Female, 73 years old. Chest pain TECHNIQUE: Single AP portable view of the chest. COMPARISON: None. FINDINGS: An endotracheal tube is in situ. The tip is at 3.1 cm proximal to the morro. An orogastric tube is seen with the tip in the body of the stomach. The lungs are clear and expanded. There is no demonstrated pleural abnormality. There is borderline cardiomegaly. Normal mediastinum and alexandra. Normal visualized pulmonary arteries. Normal visualized aortic arch and descending thoracic aorta. Normal visualized thoracic spine. Normal visualized ribs, clavicles, and shoulders. There is no demonstrated abnormality of the visualized soft tissue structures of the upper abdomen. RAD/Chest 1 View (Portable) IMPRESSION: The tip of the endotracheal tube is at 3.1 cm proximal to the morro. The tip of the orogastric tube is in the body of the stomach. The lungs are clear. Electronically Signed: Nathan Levy MD at 14:27 EDT ,
[2024-01-16 14:27] LABS: Bedside Glucose 263 mg/dL (74-106)
[2024-01-16 14:27] LABS: Anion Gap 13 (5-15); BUN 11 mg/dL (7-18); BUN/Creat Ratio 7.1 RATIO (10-20); Calcium,Total 9.2 mg/dL (8.5-10.1); Chloride 103 mmol/L (98-107); Creatinine, Serum 1.56 mg/dL (0.55-1.02); EST Glomerular Filtration Rate 35 mL/min (>60); Est Glom Filt Rate - Afr Amer 42 mL/min (>60); Estimated Creatinine Clearance 45.37 ml/min; Glucose 313 mg/dL (74-106); Potassium 4.2 mmol/L (3.5-5.1); Sodium Level 138 mmol/L (136-145); Troponin-I HS (w/2H Reflex) 82 pg/mL (3.0-54.0)
[2024-01-16] MEDS: fentaNYL drip 100 ML 2.5 MCG CONT INF (14:53)
[2024-01-16 14:54] LABS: Allen Test Positive; Base Excess -12 mmol/L (-2 to +2); Bicarbonate 15.5 mmol/L (22-26); Blood Gas Specimen Type ART; Mode AC; O2 Delivery Device ET Tube; PEEP 5; PO2 265 mmHG (75-100); RR 14; SITE R Radial; SO2 100 % (95-99); Total Carbon Dioxide 17 mmol/L; pCO2 34.7 mmHg (35-45); pH 7.26 (7.35-7.45)
[2024-01-16 15:10] LABS: Basophil 2 % (0-1); Eosinophil 1 % (0-5); Lymphocyte 31 % (19-41); Metamyelocyte 6 % (0-1); Monocyte 4 % (0-10); Myelocyte 2 % (0-0); Neutrophil-Band 5 % (0-5); Neutrophil-Segmented 49 % (47-70); Platelet Estimate ADEQUATE (ADEQ); Red Cell Morphology NORM C+C NORMAL (NORM C&C); Total Cells Counted 100 (MANUAL DIFF)
[2024-01-16 15:11] LABS: Absolute Neutrophil Count 4.3 X10^3/uL (2.0-7.7)
--- NOTE | 2024-01-16 15:20 | HP.PCM_ITS ---
HPI - General General Date of Admission: 01/16/24 Date of Service: 01/16/24 Chief Complaint: acute cardiopulmonary arre HPI Narrative TRELL YOON, is a 73 F with a PMH as outlined including afib who presents via the ED on 01/16/2024 for cardiopulmonary arrest. Her found her unresponsive in a chair after he came back home from running a few errands. He called EMS and was asked to start CPR after laying her on the floor, which he d id. When the EMS arrived, she was unresponsive with no palpable pulse. CPR was continued and she had an IO line inserted and she was given epinephrine. By the time she arrived in the ED, she had regained ROSC. She was emergently intubated in the ED. Per her , she was recently seen in the ED at [facility] for afib with RVR but was discharged home from the ED after being stabilised. Abel dallas had not been complaining of any chest pain, shortness of breath, palpitations or any other symptoms. Vitals in the ED at time of review were Bp of 134/62, ME of 64, RR of 14 and oxygen sats of 97% on the ventilator. CBC showed Hb of 16, wbc of 7.9, platelets of 261. INR was 1.6. ABG showed pH of 7.26 with bicarb of 15.5. Chemistry showed sodium of 138 with potassium of 4.2 and bicarb of 22. Creatinine was 1.56 and Cr was 82. CXR showed clear lungs. Brain CT showed chronic involutional changes of the brain and a questionable 7.6mm x 5.8mm calcieifed meningioma along the posterior inner teable of the left frontal bone. EKG showed afib. She is being admitted to be managed for acute cardiopulmonary arrest. [facility] Medical History Atrial fibrillation Cataract Kidney stones Home Medications atorvastatin 40 mg tablet 40 mg PO DAILY 07/21/23 [History Last Taken Unknown] azelaic acid 15 % topical foam 1 applic topical BID 07/21/23 [History Last Taken Unknown] docusate sodium 100 mg capsule (Colace) 100 mg PO BID 07/21/23 [History Last Taken Unknown] duloxetine 30 mg capsule,delayed release 30 mg PO DAILY 07/21/23 [History Last Taken Unknown] ferrous sulfate 325 mg (65 mg iron) tablet 325 mg PO DAILY 07/21/23 [History Last Taken Unknown] fluticasone propionate 50 mcg/actuation nasal spray,suspension (Flonase Allergy Relief) 1 spray intranasal DAILY 07/21/23 [History Last Taken Unknown] methotrexate 2.5 mg/mL oral solution PO 07/21/23 [History Last Taken Unknown] pantoprazole 40 mg tablet,delayed release 40 mg PO DAILY 07/21/23 [History Last Taken Unknown] rivaroxaban 20 mg tablet (Xarelto) 20 mg PO DAILY 07/21/23 [History Last Taken Unknown] sotalol 120 mg tablet 120 mg PO BID 07/21/23 [History Last Taken Unknown] tramadol 50 mg tablet 50 mg PO BID PRN 07/21/23 [History Last Taken Unknown] Allergy/AdvReac Type Severity Reaction Status Date / Time thimerosal Allergy Mild Other Verified 01/16/24 14:59 meperidine [From Demerol] AdvReac Nausea/Vom/ Verified 01/16/24 14:59 Diarrhea Surgical History History of carpal tunnel surgery History of hysterectomy Hx of cholecystectomy Social History Smoking Status: Never smoker ROS Review of Systems ROS Unobtainable: due to encephalopathy Vital Signs Vital Signs Vital Signs: 01/16/24 13:43 01/16/24 13:43 01/16/24 13:50 Temperature Temperature Source Pulse Rate 76 Respiratory Rate 18 Respiratory Effort Respiratory Pattern Blood Pressure Blood Pressure Mean Pulse Ox 85 87 Oxygen Delivery Method Ambu-Bag Ambu-Bag Ambu-Bag Oxygen Flow Rate (L/min) 95 15 Fraction of Inspired Oxygen (FIO2) 01/16/24 13:56 01/16/24 13:58 01/16/24 14:05 Temperature 97.7 F L Temperature Source Axillary Pulse Rate 6 L 62 Respiratory Rate 23 H 24 H Respiratory Effort Respiratory Pattern Blood Pressure 49/28 L 73/47 L Blood Pressure Mean 35 55 Pulse Ox 76 85 96 Oxygen Delivery Method Ambu-Bag Ambu-Bag Mechanical Ventilator Oxygen Flow Rate (L/min) 15 15 Fraction of Inspired Oxygen (FIO2) 01/16/24 14:07 01/16/24 14:11 01/16/24 14:18 Temperature 97.7 F L 97.7 F L Temperature Source Axillary Axillary Pulse Rate 65 72 57 L Respiratory Rate 14 14 16 Respiratory Effort Respiratory Pattern Blood Pressure 73/47 L 96/79 120/86 H Blood Pressure Mean 55 84 97 Pulse Ox 100 100 100 Oxygen Delivery Method Mechanical Ventilator Mechanical Ventilator Mechanical Ventilator Oxygen Flow Rate (L/min) 15 Fraction of Inspired Oxygen (FIO2) 01/16/24 14:32 01/16/24 14:41 01/16/24 14:47 Temperature 97.5 F L 97.5 F L Temperature Source Axillary Axillary Pulse Rate 69 60 81 Respiratory Rate 14 14 16 Respiratory Effort Respiratory Pattern Normal Blood Pressure 123/75 H 126/51 H Blood Pressure Mean 91 76 Pulse Ox 96 100 100 Oxygen Delivery Method Mechanical Ventilator Mechanical Ventilator Oxygen Flow Rate (L/min) Fraction of Inspired Oxygen (FIO2) 100 01/16/24 14:57 01/16/24 14:58 01/16/24 15:10 Temperature Temperature Source Pulse Rate 68 Respiratory Rate 14 Respiratory Effort Mechanically Ventilated Respiratory Pattern Blood Pressure 108/57 L Blood Pressure Mean 74 Pulse Ox 100 Oxygen Delivery Method Mechanical Ventilator Oxygen Flow Rate (L/min) Fraction of Inspired Oxygen (FIO2) 40 Weight Weight: 282 lb 3.067 oz Body Mass Index (BMI) 44.1 Physical Exam Const Constitutional Narrative: intubated, sedated, RASS score is -4. HEENT normocephalic Mouth: dry mucous membranes Eyes PERRL Neck no lymphadenopathy and supple Lymph Lymphatic: no lymphadenopathy noted and no lymphedema noted Resp Resp Narrative: intubated, sedated, diminished breath sounds bilaterally, no wheezes or crackles. On the ventilator. Cardio regular rate, regular rhythm, S1 normal heart sound, S2 normal heart sound and no murmurs GI normal to inspection, nondistended, normoactive bowel sounds, soft to palpation and non-tender Extremity normal capillary refill, no clubbing, cyanosis or edema and no calf tenderness General Extremity: no tenderness to palpation of joints or extremities Skin General Skin Exam: no breakdown Neuro Neuro Narrative: sedated, unresponsive Results Lab / Micro Data 01/16/24 13:50 01/16/24 13:50 Labs: Laboratory Results - last 24 hr 01/16/24 13:50: WBC 7.9, RBC 5.11, Hgb 16.0 H, Hct 50.2 H, MCV 98.2, MCH 31.3, MCHC 31.9 L, RDW Std Deviation 46.5 H, RDW Coeff of Will 12.8, Plt Count 261, MPV 10.0, Neut % (Auto) Not Reportable, Absolute Neuts (auto) 4.3, Absolute Lymphs (auto) 2.40, Total Counted 100, Neutrophils % (Manual) 49, Band Neutrophils % 5, Lymphocytes % (Manual) 31, Monocytes % (Manual) 4, Eosinophils % (Manual) 1, Basophils % (Manual) 2 H, Metamyelocytes % 6 H, Myelocytes % 2 H, Diff Path Review January, Platelet Estimate ADEQUATE, RBC Morphology NORM C+C, PT 19.4 H, INR 1.6, Sodium 138, Potassium 4.2, Chloride 103, Carbon Dioxide 22.0, Anion Gap 13, BUN 11, Creatinine 1.56 H, Estim Creat Clear Calc 45.37, Est GFR (MDRD) Af Amer 42 L, Est GFR (MDRD) Non-Af 35 L, BUN/Creatinine Ratio 7.1 L, Glucose 313 H , Calcium 9.2, Troponin I High Sens 82 H 01/16/24 14:08: POC Glucose 263 H ABG Data ABG results: ABG 01/16/24 14:50 Specimen Type ART Sample Site R Radial pH 7.26 L Bicarbonate Actual 15.5 L Total CO2 17 Base Excess -12 L O2 Saturation 100 H O2 % 100.0 ABG pCO2 34.7 L ABG pO2 265 H Joseluis Test Positive Respiration Rate 14 O2 Delivery Device ET Tube Vent Mode AC Tidal Volume 450.0 POC PEEP 5 Rhythm Strip Rhythm Strip: A-fib Rate: 68 Ectopy: None Imaging Radiology Impression Brain CT 01/16/24 13:56 IMPRESSION: Chronic involutional changes of the brain. Questionable 7.6 mm x 5.8 mm calcified meningioma along the posterior inner table of the left frontal bone. Electronically Signed: Nathan Levy MD at 14:42 EDT , Chest X-Ray 01/16/24 14:15 IMPRESSION: The tip of the endotracheal tube is at 3.1 cm proximal to the morro. The tip of the orogastric tube is in the body of the stomach. The lungs are clear. Electronically Signed: Nathan Levy MD at 14:27 EDT , Assessment & Plan Assessment/Plan (1) Cardiopulmonary arrest: PLAN: Plan #Acute cardiopulmonary arrest * Was found unresponsive in her chair. She was in PEA and had resuscitated via ACLS. Currently intubated and sedated. EKG showed atrial fibrillation which is known to have. There were no acute ST changes. * Chest x-ray showed no acute cardiopulmonary pathology. CT of the brain showed no acute intracranial pathology. * Admit to ICU. Consult cardiology and critical care. * Order 2D echo. * Vent management as per critical care. * already anticoagulated and said she had been compliant with her meds, so a PE is less likely * #NSTEMI * Initial troponin was 82 in the ED. However repeat troponin went up to thousand 203 and peaked at 5174.\ * EKG showed no acute ST changes. Cardiology consulted. * On aspirin will order high intensity statin as well. * 2D echo ordered. * #Acute metabolic acidosis: * Likely due to cardiopulmonary arrest and lactic acidosis. Lactic acid is 4. * ABG showed pH of 7.26 with bicarb of 15.5 and CO2 of 17. * Anion gap is 13. * patient kishan hydrated with IVF. * will repeat lactic acid. Should improve as dolores and lactic acidosis improve #Seizures * Patient started having seizures when she went up to the ICU. She was given a loading dose of Keppra IV * Neurology consulted. EEG ordered. CT of the brain as above. * Seizure precautions. * #A-fib with RVR * Patient was in normal sinus rhythm when I reviewed in the ED. However when she got up to the ICU I was notified that patient had gone into SVT and then A-fib with RVR. She was given a loading dose of Cardizem bolus and Cardizem drip ordered. Patient already on Xarelto. Also on sotalol. Cardiology c onsulted. * #DOLORES: Creatinine is 1.56. Hydrate with fluids and trend creatinine. If it does not improve, consult nephrology. #History of atrial fibrillation: Was in A-fib on admission. On Xarelto. On Sotalol DVT prophylaxis: On Xarelto CODE STATUS: * Patient'pasha who is her next of kin counseled extensively about different types of CODE STATUS including full code, DNR CCA and DNR CCA. * Patient's elects for her to be full code. * total face to face time: 18 mins. * Total time spent on evaluation and management of patient, reviewing chart and specialist notes, discussing plan with patient's , discussion with nursing and ancillary staff as well as documentation: 85 mins Charges/Coding Visit Charges Inpatient E&M: 22461 Init Hosp L3 Procedures Hospitalists Procedures: 52311 Advncd Care Plan 30 Min (critical care first hour [id number])
--- NOTE | 2024-01-16 15:22 | NURSING ---
DR GERMÁN FRANZ
--- NOTE | 2024-01-16 15:32 | NURSING ---
ICU [facility] CARDIOPULMONARY ARREST, CPR, INTUBATED, AFIB HX, MET ACIDOSIS
[2024-01-16 16:00] LABS: Reflex Troponin-HS? (from REC) Y
--- NOTE | 2024-01-16 16:26 | ECHOCS_ITS ---
Reason For Study: ATRIAL FIB/FLUTTER Procedure This was a 2D Doppler, Color Flow transthoracic echocardiogram. Contrast injection was performed. Patient was scanned in supine position during reflux assessment. Exam performed portable in ICU/CCU. Left Ventricle Normal LV size. The estimated ejection fraction is 35 %. No regional wall motion abnormalities noted. Right Ventricle Normal RV size. Normal systolic function. Atria Normal left atrium. Normal right atrium. Mitral Valve There is mild mitral annular calcification. Tricuspid Valve Normal tricuspid valve. Mild (1+) tricuspid valve insufficiency. Pulmonary artery systolic pressure is 40 mmHg. Aortic Valve Trisinus/trileaflet aortic valve. Mild focal aortic valve calcification. Pulmonic Valve The pulmonic valve is not well visualized. Great Vessels Normal aortic root. The pulmonary is not well visualized. Normal inferior vena cava. Pericardium/Pleural No pericardial effusion. Medication Diluted definity 2ml given slow IV push to enhance endocardial definition. MMode/2D Measurements & Calculations LVIDd: 4.7 cm IVSd: 1.0 cm LVOT diam: 1.9 cm LVIDs: 3.6 cm LVPWd: 0.92 cm RVDd: 3.5 cm FS: 23.0 % LVOT area: 3.0 cm2 Ao root diam: 3.2 cm LAV(MOD-bp): 58.1 ml LVAd ap4: 29.4 cm2 LAV(MOD-bp) Indexed: 26.3 ml/m2 LVLd ap4: 6.9 cm LAV(MOD-sp2): 66.2 ml EDV(MOD-sp4): 100.9 ml LAV(MOD-sp4): 49.7 ml EDV(sp4-el): 106.8 ml LVAs ap4: 23.0 cm2 LVLs ap4: 6.6 cm ESV(MOD-sp4): 63.8 ml ESV(sp4-el): 67.6 ml EF(MOD-sp4): 36.7 % EF(sp4-el): 36.7 % LVAd ap2: 33.6 cm2 SV(MOD-sp4): 37.0 ml SV(MOD-sp2): 46.1 ml LVLd ap2: 7.3 cm EDV(MOD-sp2): 127.0 ml EDV(sp2-el): 132.3 ml LVAs ap2: 25.6 cm2 LVLs ap2: 6.5 cm ESV(MOD-sp2): 80.9 ml ESV(sp2-el): 85.4 ml EF(MOD-sp2): 36.3 % SV(sp4-el): 39.3 ml LA dimension(2D): 4.3 cm LA A4 area: 19.9 cm2 RA A4 area: 23.1 cm2 Time Measurements MV dec time: 0.25 sec Doppler Measurements & Calculations MV E max drew: 78.2 cm/sec Lat Peak E' Drew: 6.2 cm/sec Med Peak E' Drew: 5.3 cm/sec MV A max drew: 37.6 cm/sec E/E' lat: 12.5 E/E' med: 14.7 MV E/A: 2.1 Ao V2 max: 106.1 cm/sec LV V1 max: 67.2 cm/sec MV dec slope: 311.5 cm/sec2 Ao max P.5 mmHg LV V1 max P.8 mmHg Ao V2 mean: 89.1 cm/sec Ao mean P.3 mmHg Ao V2 VTI: 20.7 cm IZA(V,D): 1.9 cm2 PA V2 max: 62.3 cm/sec TR max drew: 304.8 cm/sec TR max P.2 mmHg ECHO/Echo Complete W/ Contrast Interpretation Summary Normal LV size. The estimated ejection fraction is 35 %. No regional wall motion abnormalities noted. Pulmonary artery systolic pressure is 40 mmHg. Contrast injection was performed. Ordering Physician: Ana Goldsmith Performed By: Quin Bermudez, OC, RVT
--- NOTE | 2024-01-16 16:35 | EKG12_ITS ---
Test Reason : AFIB Blood Pressure : / mmHG Vent. Rate : 138 BPM Atrial Rate : 141 BPM P-R Int : 000 ms QRS Dur : 080 ms QT Int : 294 ms P-R-T Axes : 000 043 067 degrees QTc Int : 445 ms Atrial fibrillation Nonspecific ST and T wave abnormality Abnormal ECG When compared with ECG of 16-JAN-2024 13:44, MANUAL COMPARISON REQUIRED, DATA IS UNCONFIRMED Confirmed by BUDDY FLORES, FABY ([id number]), editorial manager CARLTON GERONIMO ([id number]) on 01/17/2024 1:16:05 PM Referred By: GERMÁN Confirmed By:FABY GOODWIN MD
[2024-01-16] MEDS: Propofol 10MG/Ml 1,000 MG/100 ML Bottle 7.7 MG CONT INF (16:56)
[2024-01-16] MEDS: 0.9% Normal Saline (1000mL) 1,000 ML 125 ML IV (16:58)
[2024-01-16] MEDS: dilTIAZem 25 MG/5 ML Vial IV BOLUS (17:00)
[2024-01-16] MEDS: levETIRAcetam IV 500 MG in 0.9% Normal Saline (100mL Bag) 100 ML 400 MG IV (17:09)
[2024-01-16] MEDS: Insulin Lispro 100 UNIT/ML INSULN.PEN SC ×2 (17:38→23:15)
[2024-01-16 17:42] LABS: Troponin-I HS 1203 pg/mL (3.0-54.0)
--- NOTE | 2024-01-16 18:17 | NURSING ---
Dr. Busby, tele-neurologist, called floor regarding ICU1. Communicated series of events, arrival to ICU with seizure-like activity, twitching of face, spastic movement frequently occurring, on propofol drip and given keppra 500mg x1. New orders received for keppra 4 grams IV x1 then keppra 1 gram IV BID, after this may do depakote 2 grams IV x1 then depakote 500 mg IV BID. May increase propofol as needed for status epilepticus. Communicated all these orders to Dr. Goldsmith
[2024-01-16 18:21] LABS: Bedside Glucose 236 mg/dL (74-106)
--- NOTE | 2024-01-16 18:45 | NURSING ---
Patient's track repair laborer- Linda Saba Patient's PCP- Erasto Chanel
[2024-01-16] MEDS: NORMAL SALINE 0.9% IV (18:55)
[2024-01-16] MEDS: LEVETIRACETAM IV (18:55)
[2024-01-16] MEDS: TITRATION PARAMETER CHANGE 1 EACH IV (19:01)
--- NOTE | 2024-01-16 19:04 | CON.PCM.CA_ITS ---
Assessment & Plan Assessment/Plan (1) Cardiopulmonary arrest: PLAN: History of recent cardiopulmonary arrest. It is unclear how long the patient was unconscious. The initial rhythm appeared to be supraventricular tachyarrhythmia. The above is suggestive of atrial fibrillation. It is not clear whether this was the initial presenting rhythm. The EMS strip appears to demonstrate atrial fibrillation with a controlled ventricular response rate. It may have been PEA. * Will recommend an echocardiogram to assess ventricular function * Intravenous amiodarone * Will await return of functional cerebral activity before considering any in vasive cardiac work * Above was discussed with the family. * Prognosis guarded (2) History of atrial fibrillation: PLAN: Patient has a history of atrial fibrillation. Will obtain records from tertiary care facility before making any other arrangements. Thank you for allowing me to participate in the care of your patient. Please don't hesitate to call if any issues arise. HPI Consult Data Date of Consult: 01/16/24 HPI Narrative HPI Narrative: TRELL YOON, is a 73 F who presents to the emergency room with a cardiac arre st. Her found her unresponsive in a chair after he came back home from running a few errands. He called EMS and was asked to start CPR after laying her on the floor, which he did. When the EMS arrived, she was unresponsive with no palpable pulse. CPR was continued and she had an IO line inserted and she was given epinephrine. By the time she arrived in the ED, she had regained ROSC. She was emergently intubated in the ED. Per her , she was recently seen in the ED at [facility] for afib with RVR but was discharged home from the ED after being stabilised. She had not been complaining of any chest pain, shortness of breath, palpitations or any other symptoms. She apparently was at [facility] and apparently had a cardioversion as well as a cardiac evaluation. It appears that she was started on some new medication recently which may have been sotalol. We are attempting to get the records from [place]. Vitals in the ED at time of review were Bp of 134/62, MN of 64, RR of 14 and oxygen sats of 97% on the ventilator. CBC showed Hb of 16, wbc of 7.9, platelets of 261. INR was 1.6. ABG showed pH of 7.26 with bicarb of 15.5. Chemistry showed sodium of 138 with potassium of 4.2 and bicarb of 22. Creatinine was 1.56 and Cr was 82. CXR showed clear lungs. Brain CT showed chronic involutional changes of the brain and a questionable 7.6mm x 5.8mm calcified meningioma along the posterior inner table of the left frontal bone. EKG showed afib. She is being admitted to be managed for acute cardiopulmonary arrest. [facility] Medical History Atrial fibrillation Cataract Kidney stones Home Medications atorvastatin 40 mg tablet 40 mg PO DAILY 07/21/23 [History Last Taken Unknown] azelaic acid 15 % topical foam 1 applic topical BID 07/21/23 [History Last Taken Unknown] docusate sodium 100 mg capsule (Colace) 100 mg PO BID 07/21/23 [History Last Taken Unknown] duloxetine 30 mg capsule,delayed release 30 mg PO DAILY 07/21/23 [History Last Taken Unknown] ferrous sulfate 325 mg (65 mg iron) tablet 325 mg PO DAILY 07/21/23 [History Last Taken Unknown] fluticasone propionate 50 mcg/actuation nasal spray,suspension (Flonase Allergy Relief) 1 spray intranasal DAILY 07/21/23 [History Last Taken Unknown] methotrexate 2.5 mg/mL oral solution PO 07/21/23 [History Last Taken Unknown] pantoprazole 40 mg tablet,delayed release 40 mg PO DAILY 07/21/23 [History Last Taken Unknown] rivaroxaban 20 mg tablet (Xarelto) 20 mg PO DAILY 07/21/23 [History Last Taken Unknown] sotalol 120 mg tablet 120 mg PO BID 07/21/23 [History Last Taken Unknown] tramadol 50 mg tablet 50 mg PO BID PRN 07/21/23 [History Last Taken Unknown] Allergy/AdvReac Type Severity Reaction Status Date / Time thimerosal Allergy Mild Other Verified 01/16/24 14:59 meperidine [From Demerol] AdvReac Nausea/Vom/ Verified 01/16/24 14:59 Diarrhea Surgical History History of carpal tunnel surgery History of hysterectomy Hx of cholecystectomy Social History Smoking Status: Never smoker ROS ROS Narrative Unobtainable Physical Exam Const Constitutional Narrative: Unconscious HEENT hearing grossly normal bilaterally Head and Scalp: atraumatic Eyes EOMs intact bilaterally Neck General: normal visual inspection Chest inspection of chest normal and palpation of chest normal Resp normal respiratory effort Auscultation: clear to auscultation bilaterally Cardio S1 normal heart sound and S2 normal heart sound Jugular Venous Distention: JVD Rhythm: abnormal rhythm irregularly irregular GI normal to inspection, nondistended, normoactive bowel sounds Extremity normal capillary refill and no pedal edema Peripheral Pulses: Yes pulses 2+ throughout and femoral pulses present Skin no rashes or lesions noted Neuro oriented x3 and CN's II-XII intact bilaterally Psych Appearance: grossly normal and appropriate Risk Stratification Risk Stratification Applicable: No Objective Data Vital Signs: Vital Signs Temp Pulse Resp BP Pulse Ox O2 Del Method O2 Flow Rate 98.2 F 94 14 136/82 H 98 Mechanical Ventilator 15 01/16/24 18:29 01/16/24 18:29 01/16/24 18:29 01/16/24 18:29 01/16/24 18:29 01/16/24 18:29 01/16/24 14:11 FiO2 40 01/16/24 18:29 Oxygen Flow Rate (L/min) 15 Oxygen Delivery Method Mechanical Ventilator Weight: 243 lb 6.245 oz Body Mass Index (BMI) 39.2 Intake & Output: Intake and Output for Last 24 Hours 01/14/24 01/15/24 01/16/24 23:59 23:59 23:59 Intake Total 1118.29 / 1118.29 Output Total 150 / 150 Balance 968.29 / 968.29 Lab / Micro Data 01/16/24 13:50 01/16/24 13:50 Labs: Laboratory Results - last 24 hr 01/16/24 13:50: WBC 7.9, RBC 5.11, Hgb 16.0 H, Hct 50.2 H, MCV 98.2, MCH 31.3, MCHC 31.9 L, RDW Std Deviation 46.5 H, RDW Coeff of Will 12.8, Plt Count 261, MPV 10.0, Neut % (Auto) Not Reportable, Absolute Neuts (auto) 4.3, Absolute Lymphs (auto) 2.40, Total Counted 100, Neutrophils % (Manual) 49, Band Neutrophils % 5, Lymphocytes % (Manual) 31, Monocytes % (Manual) 4, Eosinophils % (Manual) 1, Basophils % (Manual) 2 H, Metamyelocytes % 6 H, Myelocytes % 2 H, Diff Path Review January, Platelet Estimate ADEQUATE, RBC Morphology NORM C+C, PT 19.4 H, INR 1.6, Sodium 138, Potassium 4.2, Chloride 103, Carbon Dioxide 22.0, Anion Gap 13, BUN 11, Creatinine 1.56 H, Estim Creat Clear Calc 45.37, Est GFR (MDRD) Af Amer 42 L, Est GFR (MDRD) Non-Af 35 L, BUN/Creatinine Ratio 7.1 L, Glucose 313 H , Calcium 9.2, Troponin I High Sens 82 H 01/16/24 14:08: POC Glucose 263 H 01/16/24 16:45: Lactic Acid 4.0 H*, Troponin I High Sens 1203 H* 01/16/24 17:32: POC Glucose 236 H ABG Data ABG results: ABG 01/16/24 14:50 Specimen Type ART Sample Site R Radial pH 7.26 L Bicarbonate Actual 15.5 L Total CO2 17 Base Excess -12 L O2 Saturation 100 H O2 % 100.0 ABG pCO2 34.7 L ABG pO2 265 H Joseluis Test Positive Respiration Rate 14 O2 Delivery Device ET Tube Vent Mode AC Tidal Volume 450.0 POC PEEP 5 Rhythm Strip Rhythm Strip: A-fib Rate: 68 Ectopy: None Cardiology Labs/Tests 01/16/24 13:50: WBC 7.9, RBC 5.11, Hgb 16.0 H, Hct 50.2 H, MCV 98.2, MCH 31.3, MCHC 31.9 L, Plt Count 261, MPV 10.0, Neut % (Auto) Not Reportable, Absolute Neuts (auto) 4.3, Total Counted 100, Neutrophils % (Manual) 49, Band Neutrophils % 5, Lymphocytes % (Manual) 31, Monocytes % (Manual) 4, Eosinophils % (Manual) 1, Basophils % (Manual) 2 H, Metamyelocytes % 6 H, Myelocytes % 2 H, PT 19.4 H, INR 1.6, Sodium 138, Potassium 4.2, Chloride 103, Carbon Dioxide 22.0, Anion Gap 13, BUN 11, Creatinine 1.56 H, Est GFR (MDRD) Af Amer 42 L, Est GFR (MDRD) Non- Af 35 L, BUN/Creatinine Ratio 7.1 L, Glucose 313 H, Calcium 9.2 01/16/24 14:50: pH 7.26 L, Bicarbonate Actual 15.5 L, Base Excess -12 L, O2 Saturation 100 H, ABG pCO2 34.7 L, ABG pO2 265 H, Joseluis Test Positive 01/16/24 16:45: Lactic Acid 4.0 H* Rhythm: EKG: ECHO: Stress Test: Cardiac Cath: PCI: CT Surgery: Holter monitor: EPS: PPM: CXR: Chest CT Scan: Radiography Diagnostic Testing: Radiology Impression Brain CT 01/16/24 13:56 IMPRESSION: Chronic involutional changes of the brain. Questionable 7.6 mm x 5.8 mm calcified meningioma along the posterior inner table of the left frontal bone. Electronically Signed: Nathan Levy MD at 14:42 EDT , Chest X-Ray 01/16/24 14:15 IMPRESSION: The tip of the endotracheal tube is at 3.1 cm proximal to the morro. The tip of the orogastric tube is in the body of the stomach. The lungs are clear. Electronically Signed: Nathan Levy MD at 14:27 EDT ,
[2024-01-16] MEDS: Amiodarone 150 MG in Dextrose 5%-Water (100mL Bag) 100 ML 600 MG IV BOLUS (19:21)
[2024-01-16 19:26] LABS: Troponin-I HS 5174 pg/mL (3.0-54.0)
[2024-01-16] MEDS: Amiodarone 360 MG in Dextrose 5% Viaflo Bag 192.8 ML 33.3 MG CONT INF (19:35)
[2024-01-16 19:39] LABS: CPK Total, Creatine Kinase 266 U/L (26-192); Triglycerides 154 mg/dL
[2024-01-16] MEDS: Chlorhexidine 15 ML PO (20:38)
[2024-01-16 20:51] LABS: Reflex Lactate? Y
[2024-01-16] MEDS: VALPROATE SODIUM IV (22:24)
[2024-01-16] MEDS: WATER IV (22:24)
[2024-01-16] MEDS: 0.9% Saline Lock 10 ML Syringe IV (22:24)
[2024-01-16] MEDS: DEXTROSE 5% IV (22:24)
[2024-01-16 22:43] LABS: Lactic Acid 3.6 mmol/L (0.4-1.9)
--- NOTE | 2024-01-16 22:45 | NURSING ---
Propofol increased to 15 mcg/kg/min per protocol order for seizure activity.
[2024-01-16 23:34] LABS: Bedside Glucose 163 mg/dL (74-106)
[2024-01-17] VITALS (34 sets, daily range): BP systolic 82–168; BP diastolic 51–100; PULSE 58–107; RESP 14–32; TEMP 35.8–39.1; O2SAT 93–98; BMI 39.5
[2024-01-17] MEDS: 0.9% Normal Saline (1000mL) 1,000 ML 125 ML IV (01:59)
[2024-01-17] MEDS: Amiodarone 360 MG in Dextrose 5% Viaflo Bag 192.8 ML 16.7 MG CONT INF ×2 (01:59→15:24)
[2024-01-17] MEDS: CHLORHEXIDINE GLUC 2% CLOTH 1 EACH TOWELETTE TOPICAL (01:59)
[2024-01-17] MEDS: Propofol 10MG/Ml 1,000 MG/100 ML Bottle 11.5 MG CONT INF (02:02)
[2024-01-17 03:45] LABS: Absolute Lymphocyte Count 1.27 X10^3/uL (0.83-4.51); Absolute Neutrophil Count 12.9 X10^3/uL (2.0-7.7); Basophil# 0.04 X10^3/uL; Basophil% 0.3 % (0-1); Hematocrit 42.4 % (37-47); Hemoglobin 13.1 g/dL (12.0-15.0); Lymphocyte # 1.27 X10^3/ul (0.83-4.51); Lymphocyte % 8.1 % (19-41); Mean Corp Hgb Conc 30.9 g/dL (32-36); Mean Corpuscular Volume 100.2 fL (81-99); Monocyte# 1.33 X10^3/uL; Monocyte% 8.5 % (0-10); NRBC Flagged by Analyzer 0.2 % (0-5); Neutrophil # 12.85 X10^3/uL (2.7-7.7); Neutrophil % 81.7 % (47-70); Platelet Count 210 K/mm3 (150-450); RBC Distribution Width CV 13.3 % (11.6-14.6); Red Blood Count 4.23 M/mm3 (4.2-5.4); White Blood Count 15.7 K/mm3 (4.4-11.0)
[2024-01-17 03:55] LABS: Bedside Glucose 102 mg/dL (74-106)
[2024-01-17] MEDS: TITRATION PARAMETER CHANGE 1 EACH IV (04:25)
[2024-01-17] MEDS: 0.9% Saline Lock 10 ML Syringe IV ×2 (04:25→07:45)
[2024-01-17] MEDS: Potassium Chloride Oral Soln 20 MEQ/15 ML UDC 60 MEQ PO (05:18)
[2024-01-17 05:24] LABS: Allen Test Positive; Base Excess -20 mmol/L (-2 to +2); Bicarbonate 6.9 mmol/L (22-26); Blood Gas Specimen Type ART; Mode AC; O2 Delivery Device ET Tube; PEEP 5; PO2 78 mmHG (75-100); RR 14; SITE L Radial; SO2 94 % (95-99); Total Carbon Dioxide 7 mmol/L; pCO2 14.5 mmHg (35-45); pH 7.28 (7.35-7.45)
[2024-01-17 05:36] LABS: ALB/GLOB Ratio 0.9 RATIO (0.9-2.4); Albumin, Serum 3.3 g/dL (3.2-5.0); BUN 24 mg/dL (7-18); BUN/Creat Ratio 10.6 RATIO (10-20); Calcium,Total 8.4 mg/dL (8.5-10.1); Creatinine, Serum 2.26 mg/dL (0.55-1.02); Globulin 3.7 g/dL (2.2-4.2); Glucose 84 mg/dL (74-106)
[2024-01-17 05:37] LABS: Alkaline Phosphatase 185 U/L (45-117); Anion Gap 18 (5-15); Chloride 113 mmol/L (98-107); Potassium 4.5 mmol/L (3.5-5.1); Sodium Level 141 mmol/L (136-145)
[2024-01-17 05:47] LABS: Magnesium 2.4 mg/dL (1.6-2.6); Phosphorus 6.1 mg/dL (2.5-4.9)
--- NOTE | 2024-01-17 05:51 | NURSING ---
Lab called with critical K 2.5 and CO2 9 around 0400. notified and K replacement ordered and given. Lab requested to rerun sample d/t abnormalities. Repeat K just came back at 4.5.
--- NOTE | 2024-01-17 06:13 | CPS ---
Critical ABG values, Dr. Parr aware.
[2024-01-17] MEDS: Acetaminophen 650 MG/20 ML UDC GT ×2 (06:18→12:50)
--- NOTE | 2024-01-17 06:54 | PCM.PN.HOSP ---
Reason for Visit Reason for Visit: Cardiopulmonary arrest Subjective Subjective Mrs. Salinas is a 73-year-old white female who presented to the emergency department at [facility] on 01/16/2024 after suffering an acute cardiopulmonary arrest. Her found her unresponsive in a chair after he came back from running a few errands. He called EMS and started CPR after laying her on the floor. When EMS arrived she was unresponsive with no palpable pulse and CPR was continued. An IO was placed and she was given epinephrine. By the time she arrived in the emergency department ROSC had been achieved. She was emergently intubated in the emergency department. Per her at the time of admission, he reported that she had been recently seen at [facility] for atrial fibrillation with RVR but was discharged home from the ED after being stabilized. Her reported she had not been complaining of any symptoms prior to him leaving. Vital signs at time of admission after ROSC were temperature of 97.7, heart rate 62, respiratory 24, blood pressure of 73 over is 47, and sats were 96% on mechanical ventilator 100%. Her CBC was overall unremarkable. Coags are slightly abnormal however she has been on Xarelto. Her initial blood gas here showed a pH of 7.26, pCO2 of 34.7, pO2 of 265 with a sat of 100% on mechanical ventilation. Her chemistry panel showed elevated serum creatinine 1.56 which is up some compared to previous labs we have here in our system (baseline appears to be between 1.0 and 1.2), her blood glucose was 313 and her lactic episode was 4.0. Initial troponin was elevated to 82 with a repeat of 1203-/3 troponin at 5174. Patient was pancultured but not placed on any antibiotics as infection felt unlikely. Cardiology evaluated the patient last evening and recommended an echocardiogram, IV amiodarone and further invasive cardiac workup if patient demonstrates recovery. Patient started having seizure when she went up to the intensive care unit so she was given a loading dose of Keppra and placed on IV Keppra and valproic acid. Neurology has been consulted and the EEG is pending. CT of the brain was unremarkable. EKG on admission was A-fib. CT of the brain was suggestive of a possible 7.6 x 5.8 mm calcified meningioma in the posterior inner table of the left frontal bone as well as chronic involutional changes and chest x-ray showed no acute cardiopulmonary process. No further seizures since Depakote added to Keppra. Patient does breathe over the vent and has a gag and cough reflex but no significant response to pain Objective Data Objective Data Vital Signs: Vital Signs Temp Pulse Resp BP Pulse Ox O2 Del Method O2 Flow Rate 102.4 F H 75 31 H 105/72 94 Mechanical Ventilator 15 01/17/24 05:30 01/17/24 06:51 01/17/24 06:51 01/17/24 06:00 01/17/24 06:51 01/17/24 06:00 01/16/24 14:11 FiO2 30 01/17/24 06:51 Oxygen Flow Rate (L/min) 15 Oxygen Delivery Method Mechanical Ventilator Weight: 111.6 kg Body Mass Index (BMI) 39.5 Intake & Output: Intake and Output for Last 24 Hours 01/15/24 01/16/24 01/17/24 23:59 23:59 23:59 Intake Total 2268.56 / 2271.44 632.23 / 632.23 Output Total 150 / 150 180 / 180 Balance 2118.56 / 2121.44 452.23 / 452.23 Lab / Micro Data 01/17/24 03:32 01/17/24 04:55 Labs: Laboratory Results - last 24 hr 01/16/24 13:50: WBC 7.9, RBC 5.11, Hgb 16.0 H, Hct 50.2 H, MCV 98.2, MCH 31.3, MCHC 31.9 L, RDW Std Deviation 46.5 H, RDW Coeff of Will 12.8, Plt Count 261, MPV 10.0, Neut % (Auto) Not Reportable, Absolute Neuts (auto) 4.3, Absolute Lymphs (auto) 2.40, Total Counted 100, Neutrophils % (Manual) 49, Band Neutrophils % 5, Lymphocytes % (Manual) 31, Monocytes % (Manual) 4, Eosinophils % (Manual) 1, Basophils % (Manual) 2 H, Metamyelocytes % 6 H, Myelocytes % 2 H, Diff Path Review May , Platelet Estimate ADEQUATE, RBC Morphology NORM C+C, PT 19.4 H, INR 1.6, Sodium 138, Potassium 4.2, Chloride 103, Carbon Dioxide 22.0, Anion Gap 13, BUN 11, Creatinine 1.56 H, Estim Creat Clear Calc 45.37, Est GFR (MDRD) Af Amer 42 L, Est GFR (MDRD) Non-Af 35 L, BUN/Creatinine Ratio 7.1 L, Glucose 313 H, Calcium 9.2, Troponin I High Sens 82 H 01/16/24 14:08: POC Glucose 263 H 01/16/24 16:45: Lactic Acid 4.0 H*, Troponin I High Sens 1203 H* 01/16/24 17:32: POC Glucose 236 H 01/16/24 18:53: Total Creatine Kinase 266 H, Troponin I High Sens 5174 H*, Triglycerides 154 01/16/24 21:45: Lactic Acid 3.6 H* 01/16/24 23:14: POC Glucose 163 H 01/17/24 03:32: WBC 15.7 H, RBC 4.23, Hgb 13.1, Hct 42.4, MCV 100.2 H, MCH 31.0, MCHC 30.9 L, RDW Std Deviation 49.0 H, RDW Coeff of Will 13.3, Plt Count 210, MPV 10.0, Immature Gran % (Auto) 1.400 H, Neut % (Auto) 81.7 H, Lymph % (Auto) 8.1 L, [place] % (Auto) 8.5, Eos % (Auto) 0.0, Baso % (Auto) 0.3, Absolute Neuts (auto) 12.9 H, Absolute Lymphs (auto) 1.27, Nucleated RBC % 0.2, Sodium 141, Potassium 4.5, Chloride 113 H, Carbon Dioxide 10.0 L, Anion Gap 18 H, BUN 24 H, Creatinine 2.26 H, Estim Creat Clear Calc 28.50, Est GFR (MDRD) Af Amer 28 L, Est GFR (MDRD) Non-Af 23 L, BUN/Creatinine Ratio 10.6, Glucose 84, Calcium 8.4 L, Phosphorus 6.1 H, Magnesium 2.4, Total Bilirubin 1.40 H, Alkaline Phosphatase 185 H, Total Protein 7.0, Albumin 3.3, Globulin 3.7, Albumin/Globulin Ratio 0.9 01/17/24 03:35: POC Glucose 102 ABG Data ABG results: ABG 01/16/24 01/17/24 14:50 05:20 Specimen Type ART ART Sample Site R Radial L Radial pH 7.26 L 7.28 L Bicarbonate Actual 15.5 L 6.9 L Total CO2 17 7 Base Excess -12 L -20 L O2 Saturation 100 H 94 L O2 % 100.0 30.0 ABG pCO2 34.7 L 14.5 L* ABG pO2 265 H 78 Joseluis Test Positive Positive Respiration Rate 14 14 O2 Delivery Device ET Tube ET Tube Vent Mode AC AC Tidal Volume 450.0 450.0 POC PEEP 5 5 Crit Call To/Read Back Yes Radiography Diagnostic Testing: Radiology Impression Brain CT 01/16/24 13:56 IMPRESSION: Chronic involutional changes of the brain. Questionable 7.6 mm x 5.8 mm calcified meningioma along the posterior inner table of the left frontal bone. Electronically Signed: Nathan Levy MD at 14:42 EDT , Chest X-Ray 01/16/24 14:15 IMPRESSION: The tip of the endotracheal tube is at 3.1 cm proximal to the morro. The tip of the orogastric tube is in the body of the stomach. The lungs are clear. Electronically Signed: Nathan Levy MD at 14:27 EDT , Rhythm Strip Rhythm Strip: A-fib Rate: 68 Ectopy: None Physical Exam Const no apparent distress and well nourished; Negative for average body habitus or healthy appearing Constitutional Narrative: Obese, older, white female, intubated and sedated, lying in bed, nursing at bedside, hospital technician at bedside HEENT head/scalp atraumatic and moist oral mucous membranes HEENT Narrative: ET tube and OG in place Head and Scalp: normocephalic Eyes PERRL and conjunctivae normal Eyes Narrative: No scleral icterus Neck no lymphadenopathy and supple Neck Narrative: Neck is short and thick, trachea is midline, no thyroid enlargement appreciated Resp normal respiratory effort, no retractions, no use of accessory muscles and clear to auscultation bilaterally Auscultation: Negative for rales, rhonchi or wheezes Cardio regular rate, regular rhythm, S1 normal heart sound, S2 normal heart sound, no murmurs, no rub, no gallops and no clicks GI normal to inspection, nondistended, normoactive bowel sounds, soft to palpation and non-tender Extremity no clubbing, cyanosis or edema Extremity Narrative: Pedal pulses and radial pulses are both 2+ Skin no rashes or lesions noted, no wounds, skin turgor normal, no jaundice, no petechiae and no mottling Neuro Neuro Narrative: Patient is intubated and sedated without withdraw to pain Psych Psych Narrative: Unable to assess Assessment & Plan Assessment/Plan (1) Cardiopulmonary arrest: (2) Acute kidney injury: (3) Metabolic acidosis: (4) Lactic acidosis: (5) Leukocytosis: (6) Shock liver: (7) History of atrial fibrillation: PLAN: Plan Acute cardiopulmonary arrest -Downtime is not exactly clear as patient was found slumped over in a chair when her arrived home and he started CPR at that time with ROSC and route to the emergency department -Intubated by the emergency department on 01/16/2024 -Etiology is unclear at this time -Patient is mechanically ventilated -Nonresponsive -Echocardiogram is pending -Full cardiac workup being deferred until cerebral function can be declared and recovered Acute hypoxic respiratory failure secondary to the above -A-fib intubated in the emergency department on 01/16/2024 -Patient is on propofol and fentanyl for sedation -Patient currently on minimal vent settings with an FiO2 of 30% having an oxygen saturation of 94% -Weaning trials as able once medically appropriate Shock -Type unclear -Patient was pancultured on admission -Start antibiotics with vancomycin and Zosyn however infectious etiology is unlikely however the patient does appear to be immunocompromised at baseline as she is on methotrexate -Check echocardiogram for signs of cardiogenic shock -Lactic acid has been elevated and this is likely multifactorial as well DOLORES -Suspect secondary to ischemic ATN -Baseline serum creatinine appears to run between 1 and 1.2 -Serum creatinine presentation was 1.56 and now worse today with likely decreased perfusion from arrest--> current serum creatinine is 2.26 -Avoid nephrotoxins -Supportive care -Continue Sun -If family wants to be aggressive will consult nephrology Anion gap metabolic acidosis -Suspect multifactorial--> DOLORES/lactic acidosis/seizures -Give 1 amp of bicarb now as her serum bicarb is 10 with a respiratory rate of 30, pCO2 of 14 and pH of 7.28 -Start bicarb drip with 150 mill equivalents of serum bicarb in D5W at 100 cc/h -Repeat ABG in 2 hours -Repeat BMP in 2 hours Shock liver -Secondary to the above -Will have to follow closely -Could result in hepatic necrosis from ischemia due to arrest -Repeat coags in a.m. Seizures -Overall poor prognostic indicator -Continue Depakote and Keppra -EEG is pending -CT was unremarkable -Neurology consultation -May need MRI in the near future to assess for cerebral edema Leukocytosis -New today -Cultures have been sent -Start broad-spectrum antibiotics -suspect reactive NSTEMI -Unclear if this cause or effect related to cardiopulmonary arrest -Echo is pending -Cardiology is following and will plan on invasive workup depending on brain function and recovery Atrial fibrillation -Continue amiodarone drip -Anticoagulation is currently on hold due to the above Hyperlipidemia -Hold atorvastatin with shock liver GERD/PUD -Start Protonix 40 mg IV daily Hypertension -Med reconciliation has not yet been verified however it does not appear she is on any antihypertensives at baseline -Will continue to monitor Osteoarthritis -No current intervention needed Can avoid Tylenol due to shock liver History of nephrolithiasis -No acute issues DVT prophylaxis -Start heparin 3 times daily CODE STATUS -Full code Overall prognosis is extremely poor given multisystem organ failure family discussion later today to discuss goals of care Charges/Coding Visit Charges Inpatient E&M: 16418 Subs Hosp L3
[2024-01-17 07:03] LABS: AST(SGOT) 4120 U/L (15-37); Alanine Aminotransfer ALT/SGPT 1891 U/L (13-56); EST Glomerular Filtration Rate 23 mL/min (>60); Est Glom Filt Rate - Afr Amer 27 mL/min (>60)
--- NOTE | 2024-01-17 07:17 | EX.PCM.CONCC ---
Assessment & Plan Assessment/Plan (1) Cardiopulmonary arrest: (2) Acute kidney injury: (3) Metabolic acidosis: (4) Shock liver: PLAN: Plan RECOMMENDATIONS: 1. Continue assist-control mode of mechanical ventilation. Wean FiO2 and PEEP to maintain saturations at or above 90%. 2. Send blood and urine cultures as ordered. 3. Initiate empiric antimicrobials. 4. Place PICC line. 5. Continue Keppra and obtain EEG and neurology consultation. 6. Initiate sodium bicarb and infusion. Obtain nephrology consultation. 7. Continue amiodarone as ordered. 8. Continue appropriate ICU prophylaxis. IMPRESSIONS: 1. Acute hypoxemic respiratory failure status post cardiac arrest The patient presented to the hospital after sustaining a cardiac arrest at home, with unknown downtime. She was emergently intubated in the ED and is demonstrating clinical findings concerning for anoxic brain injury. The patient currently has an underlying metabolic acidosis and is overbreathing the set rate on the ventilator as an attempt to compensation. Plan to continue current supportive measures with invasive mechanical ventilatory support. FiO2 and PEEP will be weaned as tolerated. Will address the patient's underlying metabolic acidosis with a sodium bicarbonate infusion for the time being. Additional workup will include echocardiogram, with cardiology following to assist with medical management. 2. Encephalopathy Clinical concern for anoxic brain injury. The patient was demonstrating generalized seizure activity overnight and was subsequently placed on antiepileptics. No further seizure activity has been noted. Plan to obtain EEG today. Neurology consultation will be obtained. Anticipate the need for follow-up MRI brain in 48 to 72 hours. 3. Multisystem organ failure In addition to the above, the patient has evidence of acute kidney and liver injury, most likely secondary to hypoperfusion in the setting of cardiac arrest. I anticipate worsening the patient's renal function. As such, the patient has been initiated on a sodium bicarb and infusion, pending evaluation by nephrology. Continue to trend liver function profile for now. 4. History of atrial fibrillation/NSTEMI Continue amiodarone as ordered. Echocardiogram is currently pending. 5. Obesity/hypertension/GERD Complicates care, management, recovery and prognosis. Continue supportive care as noted above. TIME: 38 minutes of critical care time, independent of procedures, was spent addressing the patient's acute hypoxemic respiratory failure, status postcardiac arrest, encephalopathy, multisystem organ failure, review of all data and collaboration with the care team. HPI Consult Data Date of Consult: 01/17/24 HPI Narrative Reason for Consultation: Acute respiratory failure status post cardiac arrest HPI Narrative: The patient is a 73-year-old female, with a history as outlined below, who presented to the emergency department after being found unresponsive by her . He apparently initiated CPR after contacting EMS. The patient was ultimately noted to be in asystole upon EMS arrival. She received 2 rounds of epinephrine with subsequent ROSC. She does have a history of atrial fibrillation with RVR. On arrival to the emergency department, the patient was intubated. EKG demonstrated evidence of atrial fibrillation with a heart rate of 68. The patient was initially noted to be afebrile and hypotensive. Initial laboratory evaluation revealed a white blood cell count of 8000. Hemoglobin was noted to be 16 g/dL with a normal platelet count. ABG demonstrated a pH of 7.26 with a pCO2 of 35 and pO2 of 265. Chemistry profile was notable for a creatinine of 1.56 with a glucose of 313 and lactate of 4.0. Troponins were elevated. CT imaging of the head demonstrated chronic involutional changes with a questionable calcified meningioma along the posterior inner table of the left frontal bone. Chest imaging demonstrated no acute cardiopulmonary process. Overnight, according to nursing report, the patient had demonstrated generalized seizure activity, for which she was initiated on Keppra. The patient was also started on amiodarone for rate control. Since midnight, the patient has not demonstrated any further seizure activity. Nevertheless, the patient did spike a fever overnight and now has an elevated white blood cell count to 16,000. She remains acidotic with a pH of 7.28, pCO2 of 14 and pO2 of 78. Her chemistry profile this morning demonstrated a bicarbonate of 10 with an anion gap of 18, BUN of 24 and creatinine of 2.26. Liver function profile was notable for an AST of 4120 and ALT of 1891. Echocardiogram is currently pending. As a consequence of the aforementioned, the patient was initiated on a sodium bicarb and infusion along with empiric broad-spectrum antimicrobials. Cultures were obtained. [facility] Medical History Atrial fibrillation Cataract Kidney stones Home Medications atorvastatin 40 mg tablet 40 mg PO DAILY 07/21/23 [History Last Taken Unknown] azelaic acid 15 % topical foam 1 applic topical BID 07/21/23 [History Last Taken Unknown] docusate sodium 100 mg capsule (Colace) 100 mg PO BID 07/21/23 [History Last Taken Unknown] duloxetine 30 mg capsule,delayed release 30 mg PO DAILY 07/21/23 [History Last Taken Unknown] ferrous sulfate 325 mg (65 mg iron) tablet 325 mg PO DAILY 07/21/23 [History Last Taken Unknown] fluticasone propionate 50 mcg/actuation nasal spray,suspension (Flonase Allergy Relief) 1 spray intranasal DAILY 07/21/23 [History Last Taken Unknown] methotrexate 2.5 mg/mL oral solution PO 07/21/23 [History Last Taken Unknown] pantoprazole 40 mg tablet,delayed release 40 mg PO DAILY 07/21/23 [History Last Taken Unknown] rivaroxaban 20 mg tablet (Xarelto) 20 mg PO DAILY 07/21/23 [History Last Taken Unknown] sotalol 120 mg tablet 120 mg PO BID 07/21/23 [History Last Taken Unknown] tramadol 50 mg tablet 50 mg PO BID PRN 07/21/23 [History Last Taken Unknown] Allergy/AdvReac Type Severity Reaction Status Date / Time thimerosal Allergy Mild Other Verified 01/16/24 14:59 meperidine [From Demerol] AdvReac Nausea/Vom/ Verified 01/16/24 14:59 Diarrhea Surgical History History of carpal tunnel surgery History of hysterectomy Hx of cholecystectomy Social History Smoking Status: Never smoker ROS Review of Systems ROS Unobtainable: due to endotracheal tube and due to mental status Physical Exam Const Constitutional Narrative: Intubated, sedated and mechanically ventilated. Currently overbreathing set rate on ventilator. HEENT normocephalic and head/scalp atraumatic Mouth: endotracheal tube in place and OG tube in place Eyes PERRL Neck supple General: trachea midline Chest inspection of chest normal Resp Effort and Inspection: tachypneic Auscultation: diminished lung sounds; Negative for rales, rhonchi or wheezes Cardio regular rate, regular rhythm, S1 normal heart sound and S2 normal heart sound GI normal to inspection, nondistended, normoactive bowel sounds Extremity no clubbing, cyanosis or edema Skin no rashes or lesions noted Neuro Neuro Narrative: Comatose on ventilator. Lab / Micro Data 01/17/24 03:32 01/17/24 04:55 Labs: Laboratory Results - last 24 hr 01/16/24 13:50: WBC 7.9, RBC 5.11, Hgb 16.0 H, Hct 50.2 H, MCV 98.2, MCH 31.3, MCHC 31.9 L, RDW Std Deviation 46.5 H, RDW Coeff of Will 12.8, Plt Count 261, MPV 10.0, Neut % (Auto) Not Reportable, Absolute Neuts (auto) 4.3, Absolute Lymphs (auto) 2.40, Total Counted 100, Neutrophils % (Manual) 49, Band Neutrophils % 5, Lymphocytes % (Manual) 31, Monocytes % (Manual) 4, Eosinophils % (Manual) 1, Basophils % (Manual) 2 H, Metamyelocytes % 6 H, Myelocytes % 2 H, Diff Path Review May foll, Platelet Estimate ADEQUATE, RBC Morphology NORM C+C, PT 19.4 H, INR 1.6, Sodium 138, Potassium 4.2, Chloride 103, Carbon Dioxide 22.0, Anion Gap 13, BUN 11, Creatinine 1.56 H, Estim Creat Clear Calc 45.37, Est GFR (MDRD) Af Amer 42 L, Est GFR (MDRD) Non-Af 35 L, BUN/Creatinine Ratio 7.1 L, Glucose 313 H, Calcium 9.2, Troponin I High Sens 82 H 01/16/24 14:08: POC Glucose 263 H 01/16/24 16:45: Lactic Acid 4.0 H*, Troponin I High Sens 1203 H* 01/16/24 17:32: POC Glucose 236 H 01/16/24 18:53: Total Creatine Kinase 266 H, Troponin I High Sens 5174 H*, Triglycerides 154 01/16/24 21:45: Lactic Acid 3.6 H* 01/16/24 23:14: POC Glucose 163 H 01/17/24 03:32: WBC 15.7 H, RBC 4.23, Hgb 13.1, Hct 42.4, MCV 100.2 H, MCH 31.0, MCHC 30.9 L, RDW Std Deviation 49.0 H, RDW Coeff of Will 13.3, Plt Count 210, MPV 10.0, Immature Gran % (Auto) 1.400 H, Neut % (Auto) 81.7 H, Lymph % (Auto) 8.1 L, [place] % (Auto) 8.5, Eos % (Auto) 0.0, Baso % (Auto) 0.3, Absolute Neuts (auto) 12.9 H, Absolute Lymphs (auto) 1.27, Nucleated RBC % 0.2, Sodium 141, Potassium 4.5, Chloride 113 H, Carbon Dioxide 10.0 L, Anion Gap 18 H, BUN 24 H, Creatinine 2.26 H, Estim Creat Clear Calc 28.50, Est GFR (MDRD) Af Amer 27 L, Est GFR (MDRD) Non-Af 23 L, BUN/Creatinine Ratio 10.6, Glucose 84, Calcium 8.4 L, Phosphorus 6.1 H, Magnesium 2.4, Total Bilirubin 1.40 H, AST 4120 H, ALT 1891 H, Alkaline Phosphatase 185 H, Total Protein 7.0, Albumin 3.3, Globulin 3.7, Albumin/Globulin Ratio 0.9 01/17/24 03:35: POC Glucose 102 ABG Data ABG results: ABG 01/16/24 01/17/24 14:50 05:20 Specimen Type ART ART Sample Site R Radial L Radial pH 7.26 L 7.28 L Bicarbonate Actual 15.5 L 6.9 L Total CO2 17 7 Base Excess -12 L -20 L O2 Saturation 100 H 94 L O2 % 100.0 30.0 ABG pCO2 34.7 L 14.5 L* ABG pO2 265 H 78 Joseluis Test Positive Positive Respiration Rate 14 14 O2 Delivery Device ET Tube ET Tube Vent Mode AC AC Tidal Volume 450.0 450.0 POC PEEP 5 5 Crit Call To/Read Back Yes Rhythm Strip Rhythm Strip: A-fib Rate: 68 Ectopy: None Imaging Radiology Impression Brain CT 01/16/24 13:56 IMPRESSION: Chronic involutional changes of the brain. Questionable 7.6 mm x 5.8 mm calcified meningioma along the posterior inner table of the left frontal bone. Electronically Signed: Nathan Levy MD at 14:42 EDT , Chest X-Ray 01/16/24 14:15 IMPRESSION: The tip of the endotracheal tube is at 3.1 cm proximal to the morro. The tip of the orogastric tube is in the body of the stomach. The lungs are clear. Electronically Signed: Nathan Levy MD at 14:27 EDT , Charges/Coding Procedures Hospitalists Procedures: 87017 Critical Care 1st Hr
[2024-01-17] MEDS: Piperacil/Tazobactam 3.375 GM in 0.9% Normal Saline (50mL MB+) 50 ML IV ×3 (07:45→20:39)
[2024-01-17] MEDS: Sodium Bicarbonate 8.4% 50 ML Syringe 50 MEQ IV (07:45)
[2024-01-17] MEDS: Sodium Bicarbonate 150 MEQ in Dextrose 5%-Water (1000mL Bag) 1,000 ML 100 MEQ IV ×2 (08:22→20:38)
[2024-01-17] MEDS: Vancomycin HCl 1,750 MG in 0.9% Normal Saline (500mL Bag) 500 ML 250 MG IV (08:23)
--- NOTE | 2024-01-17 08:43 | CASEMGMT ---
SW went to patient's room. Patient's Adair was present as well as a couple of visitors. Adair was fine with talking in front of visitors. Adair shared more of what he and patient often do together. They love to go to car shows and show their car. Adair said they do everything together. SW listened and provided emotional support. Adair was commenting that patient almost opened her eyes. Adair stated he thinks if patient opens her eyes things might be okay. IDA encouraged Adair to talk to patient. He mentioned he was holding her hand for awhile. IDA let Adair know SW is available and he just needs to ask the nurse or SPEECH THERAPY ASSISTANT and they will find one of the social workers. Adair thanked IDA. Melissa Loving [employer]
--- NOTE | 2024-01-17 11:13 | CON.PCM.RE_ITS ---
Assessment & Plan Assessment/Plan (1) Acute kidney injury: PLAN: Baseline creatinine is normal, 1.1. Came in with cardiac arrest, likely has ischemic ATN. Walls catheter indwelling, chances of obstruction are low. Severe metabolic acidosis with lactic acidosis. She already has signs of anoxic brain injury including seizures, myoclonic jerks. Currently on Keppra. EEG monitoring ongoing. Continue bicarbonate drip for now. Discussed with ICU attending. Goals of care discussion ongoing. (2) Metabolic acidosis: HPI Consult Data Date of Consult: 01/17/24 HPI Narrative Reason for Consultation: Acute renal failure HPI Narrative: TRELL YOON, is a 73 F who presents to the hospital after cardiac arrest. found her down and called 911. Nephrology on consultation in view of acidosis, acute renal failure. Past medical history as below. Had prolonged CPR. Overnight she had seizures requiring Keppra. Currently she is sedated. Discussed with ICU staff, not much purposeful response. She does have cough reflex. This morning she has high-grade fevers, lactic acidosis, severe anion gap acidosis. Started on bicarbonate drip. Essentially 0 urine output. At baseline her creatinine is around 1.1. [facility] Medical History Atrial fibrillation Cataract Kidney stones Home Medications atorvastatin 40 mg tablet 40 mg PO DAILY 07/21/23 [History Last Taken Unknown] azelaic acid 15 % topical foam 1 applic topical BID 07/21/23 [History Last Taken Unknown] docusate sodium 100 mg capsule (Colace) 100 mg PO BID 07/21/23 [History Last Taken Unknown] duloxetine 30 mg capsule,delayed release 30 mg PO DAILY 07/21/23 [History Last Taken Unknown] ferrous sulfate 325 mg (65 mg iron) tablet 325 mg PO DAILY 07/21/23 [History Last Taken Unknown] fluticasone propionate 50 mcg/actuation nasal spray,suspension (Flonase Allergy Relief) 1 spray intranasal DAILY 07/21/23 [History Last Taken Unknown] methotrexate 2.5 mg/mL oral solution PO 07/21/23 [History Last Taken Unknown] pantoprazole 40 mg tablet,delayed release 40 mg PO DAILY 07/21/23 [History Last Taken Unknown] rivaroxaban 20 mg tablet (Xarelto) 20 mg PO DAILY 11/10/23 [History Last Taken Unknown] sotalol 120 mg tablet 120 mg PO BID 07/21/23 [History Last Taken Unknown] tramadol 50 mg tablet 50 mg PO BID PRN 07/21/23 [History Last Taken Unknown] Allergy/AdvReac Type Severity Reaction Status Date / Time thimerosal Allergy Mild Other Verified 01/16/24 14:59 meperidine [From Demerol] AdvReac Nausea/Vom/ Verified 01/16/24 14:59 Diarrhea Surgical History History of carpal tunnel surgery History of hysterectomy Hx of cholecystectomy Social History Smoking Status: Never smoker ROS ROS Narrative Unable to obtain Physical Exam Narrative no obvious distress no pallor no icterus no JVD s1s2 no murmurs lungs clear abdomen soft no organomegaly no edema no cyanosis walls + Lab / Micro Data 01/17/24 03:32 01/17/24 04:55 Labs: Laboratory Results - last 24 hr 01/16/24 13:50: WBC 7.9, RBC 5.11, Hgb 16.0 H, Hct 50.2 H, MCV 98.2, MCH 31.3, MCHC 31.9 L, RDW Std Deviation 46.5 H, RDW Coeff of Will 12.8, Plt Count 261, MPV 10.0, Neut % (Auto) Not Reportable, Absolute Neuts (auto) 4.3, Absolute Lymphs (auto) 2.40, Total Counted 100, Neutrophils % (Manual) 49, Band Neutrophils % 5, Lymphocytes % (Manual) 31, Monocytes % (Manual) 4, Eosinophils % (Manual) 1, Basophils % (Manual) 2 H, Metamyelocytes % 6 H, Myelocytes % 2 H, Diff Path Review January, Platelet Estimate ADEQUATE, RBC Morphology NORM C+C, PT 19.4 H, INR 1.6, Sodium 138, Potassium 4.2, Chloride 103, Carbon Dioxide 22.0, Anion Gap 13, BUN 11, Creatinine 1.56 H, Estim Creat Clear Calc 45.37, Est GFR (MDRD) Af Amer 42 L, Est GFR (MDRD) Non-Af 35 L, BUN/Creatinine Ratio 7.1 L, Glucose 313 H , Calcium 9.2, Troponin I High Sens 82 H 01/16/24 14:08: POC Glucose 263 H 01/16/24 16:45: Lactic Acid 4.0 H*, Troponin I High Sens 1203 H* 01/16/24 17:32: POC Glucose 236 H 01/16/24 18:53: Total Creatine Kinase 266 H, Troponin I High Sens 5174 H*, Triglycerides 154 01/16/24 21:45: Lactic Acid 3.6 H* 01/16/24 23:14: POC Glucose 163 H 01/17/24 03:32: WBC 15.7 H, RBC 4.23, Hgb 13.1, Hct 42.4, MCV 100.2 H, MCH 31.0, MCHC 30.9 L, RDW Std Deviation 49.0 H, RDW Coeff of Will 13.3, Plt Count 210, MPV 10.0, Immature Gran % (Auto) 1.400 H, Neut % (Auto) 81.7 H, Lymph % (Auto) 8.1 L , Hutchinson % (Auto) 8.5, Eos % (Auto) 0.0, Baso % (Auto) 0.3, Absolute Neuts (auto) 12.9 H, Absolute Lymphs (auto) 1.27, Nucleated RBC % 0.2 01/17/24 03:35: POC Glucose 102 01/17/24 04:55: Sodium 141, Potassium 4.5, Chloride 113 H, Carbon Dioxide 10.0 L , Anion Gap 18 H, BUN 24 H, Creatinine 2.26 H, Estim Creat Clear Calc 28.50, Est GFR (MDRD) Af Amer 27 L, Est GFR (MDRD) Non-Af 23 L, BUN/Creatinine Ratio 10.6, Glucose 84, Calcium 8.4 L, Phosphorus 6.1 H, Magnesium 2.4, Total Bilirubin 1.40 H, AST 4120 H, ALT 1891 H, Alkaline Phosphatase 185 H, Total Protein 7.0, Albumin 3.3, Globulin 3.7, Albumin/Globulin Ratio 0.9 ABG Data ABG results: ABG 01/16/24 01/17/24 14:50 05:20 Specimen Type ART ART Sample Site R Radial L Radial pH 7.26 L 7.28 L Bicarbonate Actual 15.5 L 6.9 L Total CO2 17 7 Base Excess -12 L -20 L O2 Saturation 100 H 94 L O2 % 100.0 30.0 ABG pCO2 34.7 L 14.5 L* ABG pO2 265 H 78 Joseluis Test Positive Positive Respiration Rate 14 14 O2 Delivery Device ET Tube ET Tube Vent Mode AC AC Tidal Volume 450.0 450.0 POC PEEP 5 5 Crit Call To/Read Back Yes Rhythm Strip Rhythm Strip: A-fib Rate: 68 Ectopy: None Imaging Radiology Impression Brain CT 01/16/24 13:56 IMPRESSION: Chronic involutional changes of the brain. Questionable 7.6 mm x 5.8 mm calcified meningioma along the posterior inner table of the left frontal bone. Electronically Signed: Nathan Levy MD at 14:42 EDT , Chest X-Ray 01/16/24 14:15 IMPRESSION: The tip of the endotracheal tube is at 3.1 cm proximal to the morro. The tip of the orogastric tube is in the body of the stomach. The lungs are clear. Electronically Signed: Nathan Levy MD at 14:27 EDT ,
--- NOTE | 2024-01-17 11:15 | CASEMGMT ---
IDA met with patient's Adair in the ICU waiting room. A couple was sitting with Adair whom patient and Adair have been great friends with for a long time. Adair was okay talking with IDA. Adair stated he is doing is good as can be expected. Friend's stated they are trying to distract patient. During conversation Adair indicated he was a car zohra. IDA talked about cars with Adair and looked at pictures of his car. Adair, his and friends often go camping together. Adair and patient normally go to [place] in the bruno. They were unable to do so this past winter as patient was having some health problems. Adair was thankful for the visit. IDA told Adair PRIETO will check back after bit. Melissa Loving [employer]
[2024-01-17] MEDS: Chlorhexidine 15 ML PO ×2 (11:28→20:38)
[2024-01-17 11:31] LABS: Anion Gap 19 (5-15); BUN 34 mg/dL (7-18); BUN/Creat Ratio 10.1 RATIO (10-20); Calcium,Total 8.2 mg/dL (8.5-10.1); Chloride 110 mmol/L (98-107); Creatinine, Serum 3.35 mg/dL (0.55-1.02); EST Glomerular Filtration Rate 14 mL/min (>60); Est Glom Filt Rate - Afr Amer 17 mL/min (>60); Estimated Creatinine Clearance 19.22 ml/min; Glucose 58 mg/dL (74-106); Potassium 4.7 mmol/L (3.5-5.1); Sodium Level 142 mmol/L (136-145)
[2024-01-17] MEDS: levETIRAcetam IV 1,000 MG/100 ML BAG 400 MG IV ×2 (12:24→20:38)
--- NOTE | 2024-01-17 12:37 | PCM.RX.CS ---
Consult Antibiotic Management Pharmacy has been consulted to manage selected antibiotic: Vancomycin Type of Intervention Type of Consult: New start Labs Labs: Sodium 142 mmol/L (136-145) 01/17/24 11:05 Potassium 4.7 mmol/L (3.5-5.1) 01/17/24 11:05 Chloride 110 mmol/L (98-107) H 01/17/24 11:05 Carbon Dioxide 13.0 mmol/L (21.0-32.0) L 01/17/24 11:05 Anion Gap 19 (5-15) H 01/17/24 11:05 BUN 34 mg/dL (7-18) H 01/17/24 11:05 Creatinine 3.35 mg/dL (0.55-1.02) H 01/17/24 11:05 Est GFR (MDRD) Af Amer 17 mL/min (>60) L 01/17/24 11:05 Est GFR (MDRD) Non-Af 14 mL/min (>60) L 01/17/24 11:05 BUN/Creatinine Ratio 10.1 RATIO (10-20) 01/17/24 11:05 Glucose 58 mg/dL (74-106) L 01/17/24 11:05 Dosing Weight Weight used for dosin.6 kg Estimated Creatinine Clearance Estimated Creatinine Clearance: 19 ML/MIN Goal Trough Goal Trough: 15-20 mcg/mL Pharmacy Plan for Drug Dosing Pharmacy Plan for Drug Dosing: Give initial standard dose (15mg/kg) of 1750mg IV x1. Will not schedule another dose at this time since the patient's CrCl <20 and since renal function is worsening. Will check a vanc random level in approximately 24 hours tomorrow morning at 10:00, which will determine if a dose should be given tomorrow. Of note, the patient's SCr went from 1.56 yesterday to 2.26 early this morning to 3.35 late morning. Pharmacy Service will continue to monitor and adjust dosing as required. Follow-Up Labs Follow-Up Labs: Trough: Vancomycin (random) Date/Time Labs Ordered Labs to be done on [date and time ordered]: 01/18/24 10:00
[2024-01-17] MEDS: Valproate Sodium 500 MG in Dextrose 5%-Water (50mL Bag) 50 ML 50 MG IV ×2 (12:42→20:39)
--- NOTE | 2024-01-17 12:55 | CASEMGMT ---
FATOUMATA BONILLA Assessment Face to Face with patient for initial transition planning/care coordination assessment.Pt is currently sedated and intubated and unable to answer this FATOUMATA BONILLA questions. Pt at bedside and willing to answer this FATOUMATA BONILLA questions for assessment. Care providers, pharmacy, and demographics verified. Admitting dx: Acute Cardiopulmonary Arrest LACE Strata: 2 PCP: Erasto Mata Specialists: Evelyn Carranza (Cardio - Isaias) Preferred Pharmacy: [facility] Insurance: [facility] Prescription Benefit: Yes LNOK: Adair Salinas (H) Living Arrangements: Pt lives with her in a split level home with 2 steps to enter and 5 steps to manage inside the home. ADLs/IADLs: Pt states that the pt is independent at baseline Transportation: Self, DME: [facility] [employer]. Cane. Walk in shower with bench. Pt denies further DME uses HHC/SNF: Denies history Plan: TBD. CM/SW to follow pt progression in the hospital to see what she best qualifies for moving forward. Jeremy Montoya RN, CM
[2024-01-17 13:25] LABS: Bedside Glucose 103 mg/dL (74-106)
--- NOTE | 2024-01-17 13:50 | PRO.PCM_ITS ---
Procedure Report Date of Procedure: 01/17/24 Assessment & Plan Assessment/Plan (1) Metabolic acidosis: Procedures Radiology Radiology Access Procedures: PICC Procedure Time Out Time Out Informed consent given: Yes Consent signed: Yes Time out checklist: patient, procedure, site marked/identified, positioning of patient, supplies available and allergies confirmed Time out staff in room: Yes Time out verified: Yes Time out date: 01/17/24 Time out time: 10:12 PICC Line Consent Screening tool completed:: Yes Consent obtained:: Yes Consent given by (patient or responsible republican):: Line successful (if no, document why in comments):: Yes Insertion Reason for Insertion: VESICANTS Date of Insertion: 01/17/24 Ok to use: Yes Type of PICC inserted: Dual Power PICC PICC Lot #: [id number] PICC Reference #: [id number] Microintroducer Used: Yes (in kit) Ultrasound/Equipment Used: Probe Cover Kit Trimmed Length (cm): 45 Insertion Length (cm): 45 Exposed Length (cm): 0 Tip Placement: Caval Atrial Junction Placement Confirmation: 3CG Insertion Vein: Right Basilic Insertion Attempts: 1 Local Anesthesia Used: Lidocaine 1% (in kit) Dressing Applied: Statlock and Tegaderm CHG Arm Measurement above site (in cm): 37 Patient Tolerated Procedure: Well Threading Difficulties: No Comments Comment: Patient identity was verified with two patient identifiers. Informed consent was obtained and time-out was completed. Hands were sanitized. The patient was positioned supine with right arm at 90 degrees. The patient's upper arm vasculature was assessed using ultrasound. Patency of the right basilic vein was confirmed and the vein was externally marked. An external measurement was obtained of 45 cm. External leads were applied to the patient's right upper chest and laterally and inferior of the umbilicus on the mid axillary line. Cap, mask, and prep gloves were donned. The underdrape was placed under the patient's arm. The site was prepped with chlorhexidine, and tourniquet was loosely applied. Prep gloves were discarded, and hands were sanitized. The sterile kit was opened with additional supplies dropped in. Sterile gown and gloves were donned, and the patient was draped. The sterile kit was assembled with needle, introducer, needless connectors, and each catheter lumen flushed with sterile normal saline. The marked site of insertion was anesthetized with 1% lidocaine from the kit. Patient tolerated well. The right basilic vein was then accessed using ultrasound guidance and guidewire was inserted to safety tristan. The tourniquet was released. The access needle was removed while securing the guidewire in place. The site was again anesthetized with 1% lidocaine, prior to insertion of introducer sheath and dilator. Patient tolerated the insertion well. The catheter was trimmed to a length of 45 cm. Using 3C guidance, the catheter was then inserted through the introducer sheath, slowly. There was 0 resistance on insertion. The catheter followed the expected course of the vessel using 3CG tracking. The introducer sheath was retracted and peeled away, incrementally, while keeping the catheter secured. Maximal p-wave, without deflection, confirming placement in the cavoatrial junction, was obtained at an insertion length of 45 cm, leaving 0 cm external. The stylet was removed. A flushed needleless connector was attached to the lumen. Aspiration of the lumen was performed to remove any air and confirm blood return. Blood return was verified and each lumen was flushed with 10 ml of sterile normal saline in a pulsatile fashion. The each lumen was clamped with the last pulsed flush. Total sterile flushes used for the insertion was 6 10 ml syringes, 2 from the kit. Finally, the insertion site was cleaned with chlorhexidine, and the catheter was secured using a StatLock. The site was covered with a Tegaderm CHG Dressing and disinfecting caps were applied. Baseline arm circumference was obtained at the insertion site and measured 37 cm. The patient was provided with a patient education handout on PICC line care of infection prevention, heavy lifting restriction, maintaining mobility, and watching for any signs of infection. The primary nurse is aware that the PICC line is ready for use.
--- NOTE | 2024-01-17 13:50 | CON.PCM.NE_ITS ---
Assessment and Plan: Neuro Assessment/Plan TRELL YOON is a 73 F with a past medical history of afib, being evaluated by Teleneurology for anoxic brain injury. Her time down (it seems total time of arrest is unclear) suggests significant anoxic time. Her seizures soon after arrival are consistent with anoxic injury. Cessation of seizures may be due to load of 2 anti-seizure drugs but could represent furth cortical injury (-off of excitatory cells). EEG results pending. Prognosis is poor. Diagnosis: anoxic brain injury Plan: EEG results pending Obtain [address] Head or MRI Keppra can be uptitrated if seizures re-emerge; also reasonable to re-add propofol or versed gtt if necessary I personally attended this patient and spent a total time of 41 minutes evaluating this patient including clinical assessment, review of chart, medical history imaging, and determining appropriate treatment and workup. Jed Busby MD [employer] [facility] Teleneurology HPI Consult Data Date of Consult: 01/17/24 HPI Narrative HPI Narrative: TRELL YOON, is a 73 F with history of Afib who presents after being found down and undergoing resuscitation. SOme family is at bedside and history is from chart, staff, and family. Patient was found unresponsibe by who returned from errands and initially thought she was sleeping. He initiated compressions. ROSC achieved after 20 minutes of compressions and epinephrine x 2. In hospital seizure was observed and she was loaded with 500 mg Keppra and starte don propofol gtt (she was intubated). ICU contacted me after hours for phone recommendations and I recommended an additional 4 g load of Keppra followed by 1000 mg BID and, if seizures continued, 1 g load of depakote followed by 500 mg BID. Per staff, no seizures this AM despite propofol weaned (weaned for BP). Keppra and Depakote continuing. Brainstem reflexes have, on repeated exam, been absent or intermittent. [facility], [facility] Medical History Atrial fibrillation Cataract Kidney stones Home Medications atorvastatin 40 mg tablet 40 mg PO DAILY 07/21/23 [History Last Taken Unknown] azelaic acid 15 % topical foam 1 applic topical BID 07/21/23 [History Last Taken Unknown] docusate sodium 100 mg capsule (Colace) 100 mg PO BID 07/21/23 [History Last Taken Unknown] duloxetine 30 mg capsule,delayed release 30 mg PO DAILY 07/21/23 [History Last Taken Unknown] ferrous sulfate 325 mg (65 mg iron) tablet 325 mg PO DAILY 07/21/23 [History Last Taken Unknown] fluticasone propionate 50 mcg/actuation nasal spray,suspension (Flonase Allergy Relief) 1 spray intranasal DAILY 07/21/23 [History Last Taken Unknown] methotrexate 2.5 mg/mL oral solution PO 07/21/23 [History Last Taken Unknown] pantoprazole 40 mg tablet,delayed release 40 mg PO DAILY 07/21/23 [History Last Taken Unknown] rivaroxaban 20 mg tablet (Xarelto) 20 mg PO DAILY 07/21/23 [History Last Taken Unknown] sotalol 120 mg tablet 120 mg PO BID 07/21/23 [History Last Taken Unknown] tramadol 50 mg tablet 50 mg PO BID PRN 07/21/23 [History Last Taken Unknown] Allergy/AdvReac Type Severity Reaction Status Date / Time thimerosal Allergy Mild Other Verified 01/16/24 14:59 meperidine [From Demerol] AdvReac Nausea/Vom/ Verified 01/16/24 14:59 Diarrhea Surgical History History of carpal tunnel surgery History of hysterectomy Hx of cholecystectomy Social History Smoking Status: Never smoker Vital Signs Vital Signs Vital Signs: 01/16/24 13:56 01/16/24 13:58 01/16/24 14:05 Temperature 97.7 F L Temperature Source Axillary Pulse Rate 6 L 62 Pulse Strength Respiratory Rate 23 H 24 H Respiratory Effort Respiratory Depth Respiratory Pattern Blood Pressure 49/28 L 73/47 L Blood Pressure Mean 35 55 Blood Pressure Source Blood Pressure Position Blood Pressure Location Pulse Ox 76 85 96 Oxygen Delivery Method Ambu-Bag Ambu-Bag Mechanical Ventilator Oxygen Flow Rate (L/min) 15 15 Fraction of Inspired Oxygen (FIO2) 01/16/24 14:07 01/16/24 14:11 01/16/24 14:18 Temperature 97.7 F L 97.7 F L Temperature Source Axillary Axillary Pulse Rate 65 72 57 L Pulse Strength Respiratory Rate 14 14 16 Respiratory Effort Respiratory Depth Respiratory Pattern Blood Pressure 73/47 L 96/79 120/86 H Blood Pressure Mean 55 84 97 Blood Pressure Source Blood Pressure Position Blood Pressure Location Pulse Ox 100 100 100 Oxygen Delivery Method Mechanical Ventilator Mechanical Ventilator Mechanical Ventilator Oxygen Flow Rate (L/min) 15 Fraction of Inspired Oxygen (FIO2) 01/16/24 14:32 01/16/24 14:41 01/16/24 14:47 Temperature 97.5 F L 97.5 F L Temperature Source Axillary Axillary Pulse Rate 69 60 81 Pulse Strength Respiratory Rate 14 14 16 Respiratory Effort Respiratory Depth Respiratory Pattern Normal Blood Pressure 123/75 H 126/51 H Blood Pressure Mean 91 76 Blood Pressure Source Blood Pressure Position Blood Pressure Location Pulse Ox 96 100 100 Oxygen Delivery Method Mechanical Ventilator Mechanical Ventilator Oxygen Flow Rate (L/min) Fraction of Inspired Oxygen (FIO2) 100 01/16/24 14:57 01/16/24 14:58 01/16/24 15:00 Temperature 97.2 F L Temperature Source Axillary Pulse Rate 68 59 L Pulse Strength Respiratory Rate 14 14 Respiratory Effort Mechanically Ventilated Respiratory Depth Respiratory Pattern Blood Pressure 108/57 L 111/76 Blood Pressure Mean 74 87 Blood Pressure Source Blood Pressure Position Blood Pressure Location Pulse Ox 100 100 Oxygen Delivery Method Mechanical Ventilator Mechanical Ventilator Oxygen Flow Rate (L/min) Fraction of Inspired Oxygen (FIO2) 01/16/24 15:10 01/16/24 15:30 01/16/24 15:35 Temperature 97.4 F L Temperature Source Axillary Pulse Rate 64 65 Pulse Strength Respiratory Rate 14 14 Respiratory Effort Respiratory Depth Respiratory Pattern Blood Pressure 134/62 H 135/75 H Blood Pressure Mean 86 95 Blood Pressure Source Blood Pressure Position Blood Pressure Location Pulse Ox 97 95 Oxygen Delivery Method Mechanical Ventilator Mechanical Ventilator Oxygen Flow Rate (L/min) Fraction of Inspired Oxygen (FIO2) 40 01/16/24 15:45 01/16/24 16:00 01/16/24 16:13 Temperature 97.7 F L 97.2 F L Temperature Source Axillary Pulse Rate 68 57 L 58 L Pulse Strength Respiratory Rate 13 14 13 Respiratory Effort Respiratory Depth Respiratory Pattern Blood Pressure 137/89 H 143/76 H 127/87 H Blood Pressure Mean 105 98 100 Blood Pressure Source Blood Pressure Position Blood Pressure Location Pulse Ox 96 96 96 Oxygen Delivery Method Mechanical Ventilator Mechanical Ventilator Oxygen Flow Rate (L/min) Fraction of Inspired Oxygen (FIO2) 01/16/24 17:00 01/16/24 16:33 01/16/24 17:24 Temperature 97.5 F L Temperature Source Temporal Pulse Rate 144 H 130 H 72 Pulse Strength Respiratory Rate 14 15 14 Respiratory Effort Respiratory Depth Respiratory Pattern Blood Pressure 104/88 H 92/45 L Blood Pressure Mean 93 60 Blood Pressure Source Monitor Monitor Blood Pressure Position Semi-Fowlers Semi-Fowlers Blood Pressure Location Left Arm Left Arm Pulse Ox 95 100 98 Oxygen Delivery Method Mechanical Ventilator Mechanical Ventilator Oxygen Flow Rate (L/min) Fraction of Inspired Oxygen (FIO2) 40 40 40 01/16/24 18:00 01/16/24 18:29 01/16/24 17:30 Temperature 98.2 F Temperature Source Temporal Pulse Rate 94 72 Pulse Strength Respiratory Rate 14 14 Respiratory Effort Mechanically Ventilated Respiratory Depth Normal Respiratory Pattern Normal Blood Pressure 136/82 H 103/73 Blood Pressure Mean 100 83 Blood Pressure Source Monitor Blood Pressure Position Semi-Fowlers Blood Pressure Location Left Arm Pulse Ox 98 98 Oxygen Delivery Method Mechanical Ventilator Mechanical Ventilator Mechanical Ventilator Oxygen Flow Rate (L/min) Fraction of Inspired Oxygen (FIO2) 40 40 40 01/16/24 18:00 01/16/24 19:00 01/16/24 19:21 Temperature Temperature Source Pulse Rate 74 114 H 121 H Pulse Strength Respiratory Rate 14 14 Respiratory Effort Respiratory Depth Respiratory Pattern Blood Pressure 114/93 H 142/97 H Blood Pressure Mean 100 112 Blood Pressure Source Monitor Monitor Blood Pressure Position Semi-Fowlers Semi-Fowlers Blood Pressure Location Left Arm Left Arm Pulse Ox 97 97 Oxygen Delivery Method Mechanical Ventilator Mechanical Ventilator Oxygen Flow Rate (L/min) Fraction of Inspired Oxygen (FIO2) 40 40 01/16/24 19:23 01/16/24 21:03 01/16/24 20:00 Temperature 97.7 F L Temperature Source Temporal Pulse Rate 122 H 104 H Pulse Strength Weak (1+) Respiratory Rate 14 14 Respiratory Effort Respiratory Depth Respiratory Pattern Normal Blood Pressure 110/81 H Blood Pressure Mean 90 Blood Pressure Source Monitor Blood Pressure Position Semi-Fowlers Blood Pressure Location Left Arm Pulse Ox 97 96 Oxygen Delivery Method Mechanical Ventilator Oxygen Flow Rate (L/min) Fraction of Inspired Oxygen (FIO2) 30 30 01/16/24 21:00 01/16/24 20:15 01/16/24 22:00 Temperature Temperature Source Pulse Rate 112 H 141 H Pulse Strength Respiratory Rate 17 21 H Respiratory Effort Mechanically Ventilated Respiratory Depth Normal Respiratory Pattern Normal Blood Pressure 117/73 116/84 H Blood Pressure Mean 87 94 Blood Pressure Source Monitor Monitor Blood Pressure Position Semi-Fowlers Semi-Fowlers Blood Pressure Location Left Arm Left Arm Pulse Ox 98 97 Oxygen Delivery Method Mechanical Ventilator Mechanical Ventilator Mechanical Ventilator Oxygen Flow Rate (L/min) Fraction of Inspired Oxygen (FIO2) 30 30 30 01/16/24 23:00 01/16/24 23:02 01/17/24 00:00 Temperature 96.5 F L Temperature Source Temporal Pulse Rate 119 H 119 H 107 H Pulse Strength Respiratory Rate 17 18 20 H Respiratory Effort Respiratory Depth Respiratory Pattern Normal Blood Pressure 88/74 L 117/100 H Blood Pressure Mean 78 105 Blood Pressure Source Monitor Monitor Blood Pressure Position Semi-Fowlers Semi-Fowlers Blood Pressure Location Left Arm Left Arm Pulse Ox 96 96 97 Oxygen Delivery Method Mechanical Ventilator Mechanical Ventilator Oxygen Flow Rate (L/min) Fraction of Inspired Oxygen (FIO2) 30 30 30 01/17/24 01:00 01/17/24 00:00 01/17/24 02:00 Temperature 96.5 F L Temperature Source Temporal Pulse Rate 73 71 Pulse Strength Respiratory Rate 23 H 20 H Respiratory Effort Mechanically Ventilated Respiratory Depth Normal Respiratory Pattern Normal Blood Pressure 103/64 100/65 Blood Pressure Mean 77 76 Blood Pressure Source Monitor Blood Pressure Position Semi-Fowlers Blood Pressure Location Left Arm Pulse Ox 95 95 Oxygen Delivery Method Mechanical Ventilator Mechanical Ventilator Mechanical Ventilator Oxygen Flow Rate (L/min) Fraction of Inspired Oxygen (FIO2) 30 30 30 01/17/24 02:19 01/17/24 03:00 01/17/24 03:45 Temperature Temperature Source Pulse Rate 72 68 Pulse Strength Respiratory Rate 26 H 26 H Respiratory Effort Mechanically Ventilated Respiratory Depth Normal Respiratory Pattern Normal Normal Blood Pressure 98/51 L Blood Pressure Mean 66 Blood Pressure Source Monitor Blood Pressure Position Semi-Fowlers Blood Pressure Location Left Arm Pulse Ox 96 95 Oxygen Delivery Method Mechanical Ventilator Mechanical Ventilator Oxygen Flow Rate (L/min) Fraction of Inspired Oxygen (FIO2) 30 30 30 01/17/24 04:00 01/17/24 05:00 01/17/24 05:30 Temperature 97.7 F L 102.4 F H Temperature Source Axillary Rectal Pulse Rate 71 64 Pulse Strength Respiratory Rate 30 H 31 H Respiratory Effort Respiratory Depth Respiratory Pattern Blood Pressure 94/59 L 99/58 L Blood Pressure Mean 70 71 Blood Pressure Source Monitor Monitor Blood Pressure Position Semi-Fowlers Semi-Fowlers Blood Pressure Location Left Arm Left Arm Pulse Ox 96 96 Oxygen Delivery Method Mechanical Ventilator Mechanical Ventilator Oxygen Flow Rate (L/min) Fraction of Inspired Oxygen (FIO2) 30 30 01/17/24 04:55 01/17/24 06:00 01/17/24 06:51 Temperature Temperature Source Pulse Rate 58 L 59 L 75 Pulse Strength Respiratory Rate 31 H 32 H 31 H Respiratory Effort Respiratory Depth Respiratory Pattern Normal Normal Blood Pressure 105/72 Blood Pressure Mean 83 Blood Pressure Source Monitor Blood Pressure Position Semi-Fowlers Blood Pressure Location Left Arm Pulse Ox 94 94 94 Oxygen Delivery Method Mechanical Ventilator Oxygen Flow Rate (L/min) Fraction of Inspired Oxygen (FIO2) 30 30 30 01/17/24 07:00 01/17/24 09:06 01/17/24 08:00 Temperature 98.1 F Temperature Source Axillary Pulse Rate 74 75 81 Pulse Strength Respiratory Rate 30 H 32 H 16 Respiratory Effort Respiratory Depth Respiratory Pattern Normal Blood Pressure 110/94 H 121/86 H Blood Pressure Mean 99 96 Blood Pressure Source Monitor Monitor Blood Pressure Position Semi-Fowlers Semi-Fowlers Blood Pressure Location Left Arm Right Arm Pulse Ox 94 93 94 Oxygen Delivery Method Mechanical Ventilator Mechanical Ventilator Oxygen Flow Rate (L/min) Fraction of Inspired Oxygen (FIO2) 30 30 30 01/17/24 09:00 01/17/24 08:00 01/17/24 10:00 Temperature Temperature Source Pulse Rate 75 Pulse Strength Weak (1+) Respiratory Rate 15 Respiratory Effort Mechanically Ventilated Respiratory Depth Normal Respiratory Pattern Tachypnea Blood Pressure 82/71 L Blood Pressure Mean 76 Blood Pressure Source Monitor Blood Pressure Position Semi-Fowlers Blood Pressure Location Right Arm Pulse Ox 93 Oxygen Delivery Method Mechanical Ventilator Mechanical Ventilator Oxygen Flow Rate (L/min) Fraction of Inspired Oxygen (FIO2) 30 30 01/17/24 10:00 01/17/24 11:08 01/17/24 13:07 Temperature 101.9 F H Temperature Source Rectal Pulse Rate 73 71 65 Pulse Strength Respiratory Rate 23 H 30 H 22 H Respiratory Effort Respiratory Depth Respiratory Pattern Normal Normal Blood Pressure 118/73 Blood Pressure Mean 88 Blood Pressure Source Monitor Blood Pressure Position Semi-Fowlers Blood Pressure Location Left Arm Pulse Ox 93 97 96 Oxygen Delivery Method Mechanical Ventilator Oxygen Flow Rate (L/min) Fraction of Inspired Oxygen (FIO2) 30 30 30 01/17/24 12:00 01/17/24 08:00 01/17/24 11:00 Temperature 101.9 F H 98.1 F Temperature Source Rectal Axillary Pulse Rate 67 81 72 Pulse Strength Respiratory Rate 23 H 16 22 H Respiratory Effort Respiratory Depth Respiratory Pattern Blood Pressure 91/78 121/86 H 86/65 L Blood Pressure Mean 82 97 72 Blood Pressure Source Monitor Monitor Blood Pressure Position Semi-Fowlers Semi-Fowlers Blood Pressure Location Left Forearm Left Forearm Pulse Ox 96 94 97 Oxygen Delivery Method Mechanical Ventilator Mechanical Ventilator Mechanical Ventilator Oxygen Flow Rate (L/min) Fraction of Inspired Oxygen (FIO2) 30 30 30 01/17/24 13:00 Temperature Temperature Source Pulse Rate 65 Pulse Strength Respiratory Rate 21 H Respiratory Effort Respiratory Depth Respiratory Pattern Blood Pressure 92/68 Blood Pressure Mean 76 Blood Pressure Source Monitor Blood Pressure Position Semi-Fowlers Blood Pressure Location Left Forearm Pulse Ox 97 Oxygen Delivery Method Mechanical Ventilator Oxygen Flow Rate (L/min) Fraction of Inspired Oxygen (FIO2) 30 Weight Weight: 111.6 kg Body Mass Index (BMI) 39.5 EEG Results Procedure Details EEG Procedure Details: TRELL YOON is a 73 year old F with a past medical history of , who presents for evaluation of Electroencephalogram on DATE at TIME Physical Exam Narrative Exam assisted by beside RN. Corneals absent. Gag weakly present. Eyes conjugate. No withdrawal in any extremity or any grimace to stimuli. No current motor activity. Lab / Micro Data 01/17/24 03:32 01/17/24 11:05 Labs: Laboratory Results - last 24 hr 01/16/24 13:50: WBC 7.9, RBC 5.11, Hgb 16.0 H, Hct 50.2 H, MCV 98.2, MCH 31.3, MCHC 31.9 L, RDW Std Deviation 46.5 H, RDW Coeff of Will 12.8, Plt Count 261, MPV 10.0, Neut % (Auto) Not Reportable, Absolute Neuts (auto) 4.3, Absolute Lymphs (auto) 2.40, Total Counted 100, Neutrophils % (Manual) 49, Band Neutrophils % 5, Lymphocytes % (Manual) 31, Monocytes % (Manual) 4, Eosinophils % (Manual) 1, Basophils % (Manual) 2 H, Metamyelocytes % 6 H, Myelocytes % 2 H, Diff Path Review May , Platelet Estimate ADEQUATE, RBC Morphology NORM C+C, PT 19.4 H, INR 1.6, Sodium 138, Potassium 4.2, Chloride 103, Carbon Dioxide 22.0, Anion Gap 13, BUN 11, Creatinine 1.56 H, Estim Creat Clear Calc 45.37, Est GFR (MDRD) Af Amer 42 L, Est GFR (MDRD) Non-Af 35 L, BUN/Creatinine Ratio 7.1 L, Glucose 313 H , Calcium 9.2, Troponin I High Sens 82 H 01/16/24 14:08: POC Glucose 263 H 01/16/24 16:45: Lactic Acid 4.0 H*, Troponin I High Sens 1203 H* 01/16/24 17:32: POC Glucose 236 H 01/16/24 18:53: Total Creatine Kinase 266 H, Troponin I High Sens 5174 H*, Triglycerides 154 01/16/24 21:45: Lactic Acid 3.6 H* 01/16/24 23:14: POC Glucose 163 H 01/17/24 03:32: WBC 15.7 H, RBC 4.23, Hgb 13.1, Hct 42.4, MCV 100.2 H, MCH 31.0, MCHC 30.9 L, RDW Std Deviation 49.0 H, RDW Coeff of Will 13.3, Plt Count 210, MPV 10.0, Immature Gran % (Auto) 1.400 H, Neut % (Auto) 81.7 H, Lymph % (Auto) 8.1 L , Garvin % (Auto) 8.5, Eos % (Auto) 0.0, Baso % (Auto) 0.3, Absolute Neuts (auto) 12.9 H, Absolute Lymphs (auto) 1.27, Nucleated RBC % 0.2 01/17/24 03:35: POC Glucose 102 01/17/24 04:55: Sodium 141, Potassium 4.5, Chloride 113 H, Carbon Dioxide 10.0 L , Anion Gap 18 H, BUN 24 H, Creatinine 2.26 H, Estim Creat Clear Calc 28.50, Est GFR (MDRD) Af Amer 27 L, Est GFR (MDRD) Non-Af 23 L, BUN/Creatinine Ratio 10.6, Glucose 84, Calcium 8.4 L, Phosphorus 6.1 H, Magnesium 2.4, Total Bilirubin 1.40 H, AST 4120 H, ALT 1891 H, Alkaline Phosphatase 185 H, Total Protein 7.0, Albumin 3.3, Globulin 3.7, Albumin/Globulin Ratio 0.9 01/17/24 11:05: Sodium 142, Potassium 4.7, Chloride 110 H, Carbon Dioxide 13.0 L , Anion Gap 19 H, BUN 34 H, Creatinine 3.35 H, Estim Creat Clear Calc 19.22, Est GFR (MDRD) Af Amer 17 L, Est GFR (MDRD) Non-Af 14 L, BUN/Creatinine Ratio 10.1, Glucose 58 L, Calcium 8.2 L 01/17/24 13:06: POC Glucose 103 Micro: Microbiology 01/16/24 15:46 Sputum, Induced/Lukens Gram Stain - Preliminary ABG Data ABG results: ABG 01/16/24 01/17/24 14:50 05:20 Specimen Type ART ART Sample Site R Radial L Radial pH 7.26 L 7.28 L Bicarbonate Actual 15.5 L 6.9 L Total CO2 17 7 Base Excess -12 L -20 L O2 Saturation 100 H 94 L O2 % 100.0 30.0 ABG pCO2 34.7 L 14.5 L* ABG pO2 265 H 78 Joseluis Test Positive Positive Respiration Rate 14 14 O2 Delivery Device ET Tube ET Tube Vent Mode AC AC Tidal Volume 450.0 450.0 POC PEEP 5 5 Crit Call To/Read Back Yes Rhythm Strip Rhythm Strip: A-fib Rate: 68 Ectopy: None Imaging Radiology Impression Brain CT 01/16/24 13:56 IMPRESSION: Chronic involutional changes of the brain. Questionable 7.6 mm x 5.8 mm calcified meningioma along the posterior inner table of the left frontal bone. Electronically Signed: Nathan Levy MD at 14:42 EDT , Chest X-Ray 01/16/24 14:15 IMPRESSION: The tip of the endotracheal tube is at 3.1 cm proximal to the morro. The tip of the orogastric tube is in the body of the stomach. The lungs are clear. Electronically Signed: Nathan Levy MD at 14:27 EDT , Echocardiogram 01/16/24 16:26 Interpretation Summary Normal LV size. The estimated ejection fraction is 35 %. No regional wall motion abnormalities noted. Pulmonary artery systolic pressure is 40 mmHg. Contrast injection was performed. Ordering Physician: Ana Goldsmith Performed By: Quin Bermudez, OC, RVT Active Medications Active Medications Active Medications: Current Medications Generic Name Dose Route Start Last Admin Trade Name Freq PRN Reason Stop Dose Admin Acetaminophen 650 mg 01/17/24 05:39 01/17/24 12:50 Acetaminophen 650 Mg/20 Ml Udc GT 650 mg Q6H PRN PRN Administration Pain 1-10 or Fever Chlorhexidine Gluconate 1 each 01/17/24 10:00 01/17/24 01:59 Chlorhexidine Gluc 2% Cloth 1 Each Towelette TOPICAL 1 each DAILY VASHTI Administration Chlorhexidine Gluconate 15 ml 01/16/24 22:00 01/17/24 11:28 Chlorhexidine 15 Ml PO 15 ml BID VASHTI Administration Dextrose 0 gm 01/16/24 16:26 Dextrose 50%-Water 25 Gm/50 Ml Disp.Syrin IV X1 PRN HYPOGLYCEMIA Protocol Glucagon 1 mg 01/16/24 16:26 Glucagon 1 Mg/Ml Syringe IM X1 PRN HYPOGLYCEMIA Fentanyl 100 mls @ 2.5 mls/hr 01/16/24 14:35 01/17/24 02:03 CONT INF Infused UD VASHTI Titration Protocol 25 MCG/HR Sodium Chloride 250 mls @ 15 mls/hr 01/16/24 16:42 IV .[id number] PRN Additional IVPB Infusion Sodium Chloride 250 mls @ 15 mls/hr 01/16/24 16:42 IV .[id number] PRN Saline Flush Propofol 1,000 mg in 100 mls @ 6.696 mls/hr 01/16/24 16:50 01/17/24 07:00 Diprivan CONT INF 10 mcg/kg/min .Q12H VASHTI 6.7 mls/hr Titration Protocol 10 MCG/KG/MIN Levetiracetam 1,000 mg in 100 mls @ 400 mls/hr 01/17/24 10:00 01/17/24 12:39 IV Infused Q12 VASHTI Infusion Amiodarone HCl 360 mg/ 200 mls @ 16.667 mls/hr 01/17/24 01:15 01/17/24 01:59 Dextrose CONT INF 01/17/24 19:14 0.5 mg/min .Q12H VASHTI 16.7 mls/hr Administration 0.5 MG/MIN Valproic Acid 500 mg/ Dextrose 55 mls @ 50 mls/hr 01/17/24 10:00 01/17/24 12:42 IV 50 mls/hr BID VASHTI Administration Sodium Bicarbonate 150 meq/ 1,150 mls @ 100 mls/hr 01/17/24 08:00 01/17/24 08:22 Dextrose IV 100 mls/hr .[id number] VASHTI Administration Vancomycin IV-PHARMACY TO DOSE 500 mls @ 250 mls/hr 01/17/24 07:05 1 each/ Sodium Chloride IV X1 PRN Rx to Dose Protocol Piperacillin Sod/Tazobactam 50 mls @ 12.5 mls/hr 01/17/24 07:10 01/17/24 12:45 Sod 3.375 gm/ Sodium Chloride IV Infused Q8 VASHTI Infusion Pantoprazole Sodium 40 mg/ 110 mls @ 330 mls/hr 01/17/24 10:00 Sodium Chloride IV Q24 VASHTI Insulin Human Lispro 0 unit 01/16/24 18:00 01/17/24 13:09 Insulin Lispro 100 Unit/Ml Insuln.Pen SC Not Given Q6 [facility] Protocol Morphine Sulfate 2 - 4 mg 01/16/24 16:26 Morphine 2 Mg/Ml Syringe IV Q3H PRN PRN Pain Score 6-10 Morphine Sulfate 2 - 4 mg 01/16/24 16:31 Morphine 4 Mg/Ml Syringe IV Q3H PRN PRN Pain Score 6-10 Ondansetron HCl 4 mg 01/16/24 16:26 Ondansetron 4 Mg/2 Ml Vial IV Q8H PRN PRN NAUSEA/VOMITING Oxycodone HCl 5 mg 01/16/24 16:26 Oxycodone 5 Mg Tablet PO Q4H PRN PRN Pain Score 4-10 Sodium Chloride 10 - 40 ml 01/16/24 16:42 01/17/24 07:45 0.9% Saline Lock 10 Ml Syringe IV 10 ml UD PRN Administration SALINE FLUSH Vancomycin Protocol 1 lab 01/18/24 08:00 Vancomycin Trough/Random Due 01/18/24 12:00 DAILY VASHTI
[2024-01-17] MEDS: Pantoprazole Sodium 40 MG in 0.9% Normal Saline (100mL MB+) 100 ML 330 MG IV (14:15)
[2024-01-17] MEDS: Insulin Lispro 100 UNIT/ML INSULN.PEN SC ×2 (18:33→23:26)
[2024-01-17 18:56] LABS: Bedside Glucose 178 mg/dL (74-106)
[2024-01-17] MEDS: Heparin Injection (Vial) 5,000 UNIT/ML VIAL 5000 UNIT SC (20:38)
[2024-01-17 23:42] LABS: Bedside Glucose 207 mg/dL (74-106)
[2024-01-18] VITALS (36 sets, daily range): BP systolic 84–194; BP diastolic 52–153; PULSE 57–134; RESP 14–27; TEMP 36.7–37.6; O2SAT 92–98; BMI 40.6
[2024-01-18] MEDS: hydrALAZINE 20 MG/ML Vial 10 MG IV ×2 (00:45→22:38)
[2024-01-18] MEDS: Propofol 10MG/Ml 1,000 MG/100 ML Bottle 6.7 MG CONT INF (00:50)
[2024-01-18] MEDS: Amiodarone 360 MG in Dextrose 5% Viaflo Bag 192.8 ML 16.7 MG CONT INF ×2 (00:51→13:19)
[2024-01-18 03:38] LABS: Absolute Lymphocyte Count 0.59 X10^3/uL (0.83-4.51); Absolute Neutrophil Count 19.9 X10^3/uL (2.0-7.7); Basophil# 0.07 X10^3/uL; Basophil% 0.3 % (0-1); Eosinophil# 0.05 X10^3/uL; Eosinophils% 0.2 % (0-5); Hematocrit 50.7 % (37-47); Hemoglobin 16.5 g/dL (12.0-15.0); Lymphocyte # 0.59 X10^3/ul (0.83-4.51); Lymphocyte % 2.7 % (19-41); Mean Corp Hgb Conc 32.5 g/dL (32-36); Mean Corpuscular Hgb 30.4 pg (27.0-32.0); Mean Corpuscular Volume 93.4 fL (81-99); Monocyte# 1.33 X10^3/uL; NRBC Flagged by Analyzer 0.1 % (0-5); Neutrophil # 19.88 X10^3/uL (2.7-7.7); Neutrophil % 89.8 % (47-70); POSITIVE DIFFERENTIAL YES; Platelet Count 239 K/mm3 (150-450); RBC Distribution Width CV 13.4 % (11.6-14.6); RBC Distribution Width SD 45.3 fl (35.1-43.9); Red Blood Count 5.43 M/mm3 (4.2-5.4); White Blood Count 22.1 K/mm3 (4.4-11.0)
[2024-01-18 03:52] LABS: International Normalized Ratio 2.6
[2024-01-18 04:38] LABS: ALB/GLOB Ratio 0.9 RATIO (0.9-2.4); AST(SGOT) 13464 U/L (15-37); Alanine Aminotransfer ALT/SGPT 6489 U/L (13-56); Albumin, Serum 2.7 g/dL (3.2-5.0); Alkaline Phosphatase 163 U/L (45-117); Anion Gap 17 (5-15); BUN 48 mg/dL (7-18); BUN/Creat Ratio 11.6 RATIO (10-20); Calcium,Total 6.9 mg/dL (8.5-10.1); Chloride 104 mmol/L (98-107); Creatinine, Serum 4.13 mg/dL (0.55-1.02); EST Glomerular Filtration Rate 11 mL/min (>60); Est Glom Filt Rate - Afr Amer 14 mL/min (>60); Glucose 192 mg/dL (74-106); Magnesium 1.9 mg/dL (1.6-2.6); Phosphorus 6.2 mg/dL (2.5-4.9); Potassium 3.4 mmol/L (3.5-5.1); Protein, Total 5.7 g/dL (6.4-8.2); Sodium Level 139 mmol/L (136-145); Thyroid Stim Hormone (TSH) 1.55 uIU/mL (0.358-3.74)
[2024-01-18] MEDS: Piperacil/Tazobactam 3.375 GM in 0.9% Normal Saline (50mL MB+) 50 ML IV ×3 (05:03→21:16)
[2024-01-18] MEDS: Heparin Injection (Vial) 5,000 UNIT/ML VIAL 5000 UNIT SC (05:03)
[2024-01-18] MEDS: CHLORHEXIDINE GLUC 2% CLOTH 1 EACH TOWELETTE TOPICAL (05:03)
[2024-01-18] MEDS: 0.9% Saline Lock 10 ML Syringe IV (05:03)
[2024-01-18] MEDS: Insulin Lispro 100 UNIT/ML INSULN.PEN SC ×2 (05:04→11:31)
[2024-01-18 05:29] LABS: Bedside Glucose 183 mg/dL (74-106)
[2024-01-18] MEDS: TITRATION PARAMETER CHANGE 1 EACH IV (05:32)
--- NOTE | 2024-01-18 07:20 | PN.CC_ITS ---
Assessment & Plan Assessment/Plan (1) Cardiopulmonary arrest: (2) Acute kidney injury: (3) Metabolic acidosis: (4) Shock liver: PLAN: Plan RECOMMENDATIONS: 1. Continue assist-control mode of mechanical ventilation. Wean FiO2 and PEEP to maintain saturations at or above 90%. 2. Continue empiric antibiotics. 3. Await results of EEG. 4. Obtain MRI brain tomorrow. 5. Continue current antiepileptics. 6. Continue sodium bicarb and infusion for now. 7. Continue appropriate ICU prophylaxis. 8. Ongoing goals of care discussion with the patient's . IMPRESSIONS: 1. Acute hypoxemic respiratory failure status post cardiac arrest The patient presented to the hospital after sustaining a cardiac arrest at home, with unknown downtime. She was emergently intubated in the ED and is demonstrating clinical findings concerning for anoxic brain injury. Plan to continue current supportive measures with invasive mechanical ventilatory support. FiO2 and PEEP will be weaned as tolerated. Plan to continue sodium bicarb and infusion given underlying metabolic acidosis and renal insufficiency. Overall, prognosis is quite poor. 2. Encephalopathy Clinical concern for anoxic brain injury. The patient was demonstrating generalized seizure activity overnight and was subsequently placed on ant iepileptics. No further seizure activity has been noted. EEG is currently pending with tentative plans to obtain MRI brain tomorrow for prognostication. 3. Multisystem organ failure In addition to the above, the patient has evidence of acute kidney and liver injury, most likely secondary to hypoperfusion in the setting of cardiac arrest. I anticipate worsening the patient's renal function. As such, the patient has been initiated on a sodium bicarb and infusion, with nephrology following to assist with medical management. 4. History of atrial fibrillation/NSTEMI Continue amiodarone as ordered. Cardiology is following. 5. Obesity/hypertension/GERD Complicates care, management, recovery and prognosis. Continue supportive care as noted above. TIME: 34 minutes of critical care time, independent of procedures, was spent addressing the patient's acute hypoxemic respiratory failure, status postcardiac arrest, encephalopathy, multisystem organ failure, review of all data and co llaboration with the care team. Subjective Subjective The patient was seen and examined at the bedside this morning. Events from the last 24 hours have been reviewed. The patient is currently afebrile, hemodynamically stable and maintaining appropriate oxygen saturations on assist- control mode of mechanical ventilation with an FiO2 requirement of 30% and PEEP of 5. The patient is currently documented to be overall net +5.1 L for the hospitalization. The patient's propofol once again had to be restarted overnight after she developed generalized seizure activity once again. White count is elevated at 22,000. INR was noted to be 2.6 this morning. Potassium is low at 3.4 with a bicarbonate of 18, anion gap of 17, BUN of 48 and creatinine of 4.13. AST and ALT have worsened from yesterday. I did personally meet with the patient's this morning to discuss overall goals of care and prognosis. I made it very clear to him that my clinical concern is for that of anoxic brain injury and that her prognosis is overall quite poor. I advocated for a change in CODE STATUS to DNR CCA. However, the patient is reluctant to make any significant changes at this time. Objective Data Objective Data The patient's most recent lab work, culture data and imaging studies have all been personally reviewed. Surface echocardiogram demonstrated normal LV size with an ejection fraction of 35%. Pulmonary artery systolic pressure was estim ated to be 40 mmHg. Blood, urine and sputum cultures are pending. Vital Signs: Vital Signs Temp Pulse Resp BP Pulse Ox O2 Del Method O2 Flow Rate 99.5 F H 121 H 14 91/70 93 Mechanical Ventilator 15 01/18/24 04:00 01/18/24 06:29 01/18/24 06:29 01/18/24 06:00 01/18/24 06:29 01/18/24 06:29 01/16/24 14:11 FiO2 30 01/18/24 06:29 Oxygen Flow Rate (L/min) 15 Oxygen Delivery Method Mechanical Ventilator Weight: 251 lb 12.286 oz Body Mass Index (BMI) 40.6 Intake & Output: Intake and Output for Last 24 Hours 01/16/24 01/17/24 01/18/24 23:59 23:59 23:59 Intake Total 2268.56 / 2271.44 3612.40 / 3612.40 242.66 / 242.66 Output Total 150 / 150 785 / 785 Balance 2118.56 / 2121.44 2827.40 / 2827.40 227.66 / 227.66 Lab / Micro Data Attestation: I reviewed the patient's lab results. 01/18/24 03:20 01/18/24 03:20 Labs: Laboratory Results - last 24 hr 01/17/24 04:55: Sodium 141, Potassium 4.5, Chloride 113 H, Carbon Dioxide 10.0 L , Anion Gap 18 H, BUN 24 H, Creatinine 2.26 H, Estim Creat Clear Calc 28.50, Est GFR (MDRD) Af Amer 27 L, Est GFR (MDRD) Non-Af 23 L, BUN/Creatinine Ratio 10.6, Glucose 84, Calcium 8.4 L, Phosphorus 6.1 H, Magnesium 2.4, Total Bilirubin 1.40 H, AST 4120 H, ALT 1891 H, Alkaline Phosphatase 185 H, Total Protein 7.0, Albumin 3.3, Globulin 3.7, Albumin/Globulin Ratio 0.9 01/17/24 11:05: Sodium 142, Potassium 4.7, Chloride 110 H, Carbon Dioxide 13.0 L , Anion Gap 19 H, BUN 34 H, Creatinine 3.35 H, Estim Creat Clear Calc 19.22, Est GFR (MDRD) Af Amer 17 L, Est GFR (MDRD) Non-Af 14 L, BUN/Creatinine Ratio 10.1, Glucose 58 L, Calcium 8.2 L 01/17/24 13:06: POC Glucose 103 01/17/24 18:32: POC Glucose 178 H 01/17/24 23:20: POC Glucose 207 H 01/18/24 03:20: WBC 22.1 H, RBC 5.43 H, Hgb 16.5 H, Hct 50.7 H, MCV 93.4 D, MCH 30.4, MCHC 32.5 D, RDW Std Deviation 45.3 H, RDW Coeff of Will 13.4, Plt Count 239, MPV 11.0, Immature Gran % (Auto) 1.000 H, Neut % (Auto) 89.8 H, Lymph % (Auto) 2.7 L, [place] % (Auto) 6.0, Eos % (Auto) 0.2, Baso % (Auto) 0.3, Absolute Neuts (auto) 19.9 H, Absolute Lymphs (auto) 0.59 L, Nucleated RBC % 0.1, PT 28.0 H, INR 2.6, Sodium 139, Potassium 3.4 L, Chloride 104, Carbon Dioxide 18.0 L, Anion Gap 17 H, BUN 48 H, Creatinine 4.13 H, Estim Creat Clear Calc 15.80, Est GFR (MDRD) Af Amer 14 L, Est GFR (MDRD) Non-Af 11 L, BUN/Creatinine Ratio 11.6, Glucose 192 H, Calcium 6.9 L, Phosphorus 6.2 H, Magnesium 1.9, Total Bilirubin 1.30 H, AST 94015 H, ALT 6489 H, Alkaline Phosphatase 163 H, Total Protein 5.7 L , Albumin 2.7 L, Globulin 3.0, Albumin/Globulin Ratio 0.9, TSH 1.55 01/18/24 05:02: POC Glucose 183 H Micro: Microbiology 01/16/24 15:46 Sputum, Induced/Lukens Gram Stain - Final Radiography Diagnostic Testing: Radiology Impression Echocardiogram 01/16/24 16:26 Interpretation Summary Normal LV size. The estimated ejection fraction is 35 %. No regional wall motion abnormalities noted. Pulmonary artery systolic pressure is 40 mmHg. Contrast injection was performed. Ordering Physician: Ana Goldsmith Performed By: Quin Bermudez, OC, RVT Rhythm Strip Rhythm Strip: A-fib Rate: 68 Ectopy: None Physical Exam Const Constitutional Narrative: Intubated, sedated and mechanically ventilated. HEENT normocephalic and head/scalp atraumatic Mouth: endotracheal tube in place and OG tube in place Eyes Eyes Narrative: Sluggish pupillary response bilaterally. Neck supple General: trachea midline Chest inspection of chest normal Resp Auscultation: diminished lung sounds; Negative for rales, rhonchi or wheezes Cardio regular rate, regular rhythm, S1 normal heart sound and S2 normal heart sound GI normal to inspection, nondistended, normoactive bowel sounds Extremity no clubbing, cyanosis or edema Skin no rashes or lesions noted Neuro Neuro Narrative: Comatose on ventilator. Still initiate spontaneous breaths on CPAP. No gag or cough is present. Charges/Coding Procedures Hospitalists Procedures: 57427 Critical Care 1st Hr
[2024-01-18] MEDS: Chlorhexidine 15 ML PO ×2 (07:33→21:16)
[2024-01-18] MEDS: Sodium Bicarbonate 150 MEQ in Dextrose 5%-Water (1000mL Bag) 1,000 ML 100 MEQ IV (07:35)
[2024-01-18] MEDS: Pantoprazole Sodium 40 MG in 0.9% Normal Saline (100mL MB+) 100 ML 330 MG IV (07:36)
[2024-01-18] MEDS: levETIRAcetam IV 1,000 MG/100 ML BAG 400 MG IV ×2 (07:37→21:15)
[2024-01-18 08:18] LABS: Pathologist Review Reviewed
[2024-01-18 09:15] LABS: Vancomycin, Random Level 19.1 ug/mL (0.0-15.0)
--- NOTE | 2024-01-18 09:28 | PCM.RX.CS ---
Consult Antibiotic Management Pharmacy has been consulted to manage selected antibiotic: Vancomycin Type of Intervention Type of Consult: Follow-up Prior Doses of Antibiotics Prior Doses of Antibiotics Received/Current Regimen: Patient received 1750mg iv x 1 yesterday 5.8.24 @0823. Labs Labs: Sodium 139 mmol/L (136-145) 01/18/24 03:20 Potassium 3.4 mmol/L (3.5-5.1) L 01/18/24 03:20 Chloride 104 mmol/L (98-107) 01/18/24 03:20 Carbon Dioxide 18.0 mmol/L (21.0-32.0) L 01/18/24 03:20 Anion Gap 17 (5-15) H 01/18/24 03:20 BUN 48 mg/dL (7-18) H 01/18/24 03:20 Creatinine 4.13 mg/dL (0.55-1.02) H 01/18/24 03:20 Est GFR (MDRD) Af Amer 14 mL/min (>60) L 01/18/24 03:20 Est GFR (MDRD) Non-Af 11 mL/min (>60) L 01/18/24 03:20 BUN/Creatinine Ratio 11.6 RATIO (10-20) 01/18/24 03:20 Glucose 192 mg/dL (74-106) H 01/18/24 03:20 Random Vancomycin 19.1 ug/mL (0.0-15.0) H 01/18/24 07:50 Microbiology Microbiology: Microbiology 01/16/24 15:46 Sputum, Induced/Lukens Gram Stain - Final Dosing Weight Weight used for dosin kg Estimated Creatinine Clearance Estimated Creatinine Clearance: 18ml/min Goal Trough Goal Trough: 15-20 mcg/mL Pharmacy Plan for Drug Dosing Pharmacy Plan for Drug Dosing: Random level this AM therapeutic at 19.1. This was ~23 hrs post dose. Renal CrCl <20 therefore will not give a scheduled dose. Will give 1750mg iv x 1 and get another random level tomorrow ~24hrs post dose. Pharmacy Service will continue to monitor and adjust dosing as required.
[2024-01-18] MEDS: Valproate Sodium 500 MG in Dextrose 5%-Water (50mL Bag) 50 ML 50 MG IV ×2 (09:52→21:15)
[2024-01-18] MEDS: Vancomycin HCl 1,750 MG in 0.9% Normal Saline (500mL Bag) 500 ML 250 MG IV (10:27)
[2024-01-18 11:20] LABS: Allen Test Positive; Base Excess -1 mmol/L (-2 to +2); Bicarbonate 21.7 mmol/L (22-26); Blood Gas Specimen Type ART; Mode AC; O2 Delivery Device Adult Vent; PEEP 5; PO2 76 mmHG (75-100); RR 14; SITE L Radial; SO2 97 % (95-99); Total Carbon Dioxide 23 mmol/L; pCO2 25.7 mmHg (35-45); pH 7.53 (7.35-7.45)
[2024-01-18 11:50] LABS: Bedside Glucose 196 mg/dL (74-106)
--- NOTE | 2024-01-18 12:44 | PCM.PN.HOSP ---
Reason for Visit Reason for Visit: Cardiopulmonary arrest Subjective Subjective No issues overnight. Conversation with yesterday per critical care medicine and they have outlined her grim prognosis overall. Further discussion today which recommended DNR CCA at the very least however is reluctant to change CODE STATUS at this time and is quite upset about the whole thing which is understandable. Objective Data Objective Data Vital Signs: Vital Signs Temp Pulse Resp BP Pulse Ox O2 Del Method O2 Flow Rate 98.9 F 99 16 88/54 L 94 Mechanical Ventilator 15 01/18/24 08:00 01/18/24 11:08 01/18/24 11:08 01/18/24 11:00 01/18/24 11:08 01/18/24 11:50 01/16/24 14:11 FiO2 30 01/18/24 11:50 Oxygen Flow Rate (L/min) 15 Oxygen Delivery Method Mechanical Ventilator Weight: 114.2 kg Body Mass Index (BMI) 40.6 Intake & Output: Intake and Output for Last 24 Hours 01/16/24 01/17/24 01/18/24 23:59 23:59 23:59 Intake Total 2268.56 / 2271.44 3612.40 / 3612.40 1666.34 / 1666.34 Output Total 150 / 150 785 / 785 30 / 30 Balance 2118.56 / 2121.44 2827.40 / 2827.40 1636.34 / 1636.34 Lab / Micro Data 01/18/24 03:20 01/18/24 03:20 Labs: Laboratory Results - last 24 hr 01/16/24 13:50: Diff Path Review Reviewed 01/17/24 13:06: POC Glucose 103 01/17/24 18:32: POC Glucose 178 H 01/17/24 23:20: POC Glucose 207 H 01/18/24 03:20: WBC 22.1 H, RBC 5.43 H, Hgb 16.5 H, Hct 50.7 H, MCV 93.4 D, MCH 30.4, MCHC 32.5 D, RDW Std Deviation 45.3 H, RDW Coeff of Will 13.4, Plt Count 239, MPV 11.0, Immature Gran % (Auto) 1.000 H, Neut % (Auto) 89.8 H, Lymph % (Auto) 2.7 L, [place] % (Auto) 6.0, Eos % (Auto) 0.2, Baso % (Auto) 0.3, Absolute Neuts (auto) 19.9 H, Absolute Lymphs (auto) 0.59 L, Nucleated RBC % 0.1, PT 28.0 H, INR 2.6, Sodium 139, Potassium 3.4 L, Chloride 104, Carbon Dioxide 18.0 L, Anion Gap 17 H, BUN 48 H, Creatinine 4.13 H, Estim Creat Clear Calc 15.80, Est GFR (MDRD) Af Amer 14 L, Est GFR (MDRD) Non-Af 11 L, BUN/Creatinine Ratio 11.6, Glucose 192 H, Calcium 6.9 L, Phosphorus 6.2 H, Magnesium 1.9, Total Bilirubin 1.30 H, AST 92250 H, ALT 6489 H, Alkaline Phosphatase 163 H, Total Protein 5.7 L, Albumin 2.7 L, Globulin 3.0, Albumin/Globulin Ratio 0.9, TSH 1.55 01/18/24 05:02: POC Glucose 183 H 01/18/24 07:50: Random Vancomycin 19.1 H 01/18/24 11:31: POC Glucose 196 H Micro: Microbiology 01/17/24 06:49 Urine Catheter - Catheter Urine Culture - Preliminary Presumptive E. coli 01/16/24 15:46 Sputum, Induced/Lukens Gram Stain - Final ABG Data ABG results: ABG 01/18/24 11:15 Specimen Type ART Sample Site L Radial pH 7.53 H Bicarbonate Actual 21.7 L Total CO2 23 Base Excess -1 O2 Saturation 97 O2 % 30.0 ABG pCO2 25.7 L ABG pO2 76 Joseluis Test Positive Respiration Rate 14 O2 Delivery Device Adult Vent Vent Mode AC Tidal Volume 450.0 POC PEEP 5 Rhythm Strip Rhythm Strip: A-fib Rate: 68 Ectopy: None Physical Exam Const no apparent distress and well nourished; Negative for average body habitus or healthy appearing Constitutional Narrative: Obese, older, white female, intubated and sedated, lying in bed HEENT normocephalic, head/scalp atraumatic and moist oral mucous membranes HEENT Narrative: ET tube and OG in place Eyes Eyes Narrative: No scleral icterus Resp normal respiratory effort, no retractions, no use of accessory muscles and clear to auscultation bilaterally Auscultation: Negative for rales, rhonchi or wheezes Cardio regular rate, regular rhythm, S1 normal heart sound, S2 normal heart sound, no murmurs, no rub, no gallops and no clicks GI normal to inspection, nondistended, normoactive bowel sounds, soft to palpation and non-tender Extremity normal capillary refill, no clubbing, cyanosis or edema and no calf tenderness Extremity Narrative: Pedal pulses and radial pulses are both 2+ Skin no rashes or lesions noted, no wounds, skin turgor normal, no jaundice, no petechiae and no mottling Skin Narrative: Right upper extremity PICC in place with dressing clean dry and intact Neuro Neuro Narrative: Patient is intubated and sedated , fasciculations around both eyes noted, no response to any tactile or noxious stimulus, pupils are nonreactive Speech: speech normal Psych Psych Narrative: Unable to assess Assessment & Plan Assessment/Plan (1) Cardiopulmonary arrest: (2) Acute kidney injury: (3) Metabolic acidosis: (4) Lactic acidosis: (5) Leukocytosis: (6) Shock liver: (7) History of atrial fibrillation: PLAN: Plan Acute cardiopulmonary arrest -Downtime is not exactly clear as patient was found slumped over in a chair when her arrived home and he started CPR at that time with ROSC and route to the emergency department -Intubated by the emergency department on 01/16/2024 -Etiology is unclear -Patient is mechanically ventilated -Remains unresponsive -Echocardiogram showed an EF of 35% with global wall motion depression and no focal abnormalities with a pulmonary systolic pressure of 40 mmHg -Full cardiac workup being deferred until cerebral function can be declared and recovered Acute hypoxic respiratory failure secondary to the above -A-fib intubated in the emergency department on 01/16/2024 -Patient is on propofol and fentanyl for sedation -Patient currently on minimal vent settings with an FiO2 of 30% having an oxygen saturation of 94% -Weaning trials as able once medically appropriate E. coli UTI -Continue antibiotics as ordered for now as we wait for the rest of her cultures to result Shock-multifactorial -Type unclear -Patient was pancultured on admission -Start antibiotics with vancomycin and Zosyn however infectious etiology is unlikely however the patient does appear to be immunocompromised at baseline as she is on methotrexate -Echocardiogram shows EF 35% DOLORES -Suspect secondary to ischemic ATN -Baseline serum creatinine appears to run between 1 and 1.2 -Serum creatinine presentation was 1.56 and now worse today with likely decreased perfusion from arrest--> current serum creatinine is 4.13 -Avoid nephrotoxins -Supportive care -Continue Sun -Nephrology following--> with overall poor prognosis feel that nephrology may not even offer dialysis at this point -Will discuss further as I do suspect we will get to the point where continue to make that decision Anion gap metabolic acidosis -Patient is now alkalotic on her ABG today however she still has an elevated anion gap and her bicarb is 18 -Discontinue bicarb drip for now and continue to monitor -May need to restart depending on future lab Shock liver -Secondary to the above -Liver functions continue to worsen -Coags are worsening -Likely related to hepatic necrosis from ischemia during arrest -Continue to monitor Coagulopathy -Secondary to shock liver -Repeat coags in a.m. Toxic/metabolic encephalopathy -Likely anoxia -MRI pending for tomorrow Seizures -Continue Depakote and Keppra -EEG showed severe diffuse encephalopathy with no seizure or epileptiform discharges captured -Neurology evaluated the patient overall feels like prognosis is extremely poor -MRI tomorrow Leukocytosis -Trending up despite antibiotic use -Urine culture shows E. coli UTI -Continue vancomycin and Zosyn for now -suspect reactive NSTEMI -Unclear if this cause or effect related to cardiopulmonary arrest -Echo shows EF of 35% with global dysfunction -Cardiology is following and will plan on invasive workup depending on brain function and recovery Atrial fibrillation -Continue amiodarone drip -Anticoagulation is currently on hold due to the above -Appreciate cardiology assistance Hyperlipidemia -Hold atorvastatin with shock liver GERD/PUD -Continue Protonix 40 mg IV daily Hypertension -Med reconciliation has not yet been verified however it does not appear she is on any antihypertensives at baseline -Will continue to monitor Osteoarthritis -No current intervention needed -avoid Tylenol due to shock liver History of nephrolithiasis -No acute issues DVT prophylaxis -Continue heparin 3 times daily CODE STATUS -Full code Overall prognosis is extremely poor given multisystem organ failure Charges/Coding Visit Charges Inpatient E&M: 66085 Subs Hosp L2
[2024-01-18] MEDS: Propofol 10MG/Ml 1,000 MG/100 ML Bottle 6.9 MG CONT INF (12:56)
--- NOTE | 2024-01-18 13:04 | PCM.PN.REN ---
Subjective Subjective No new events Objective Data Objective Data Vital Signs: Vital Signs Temp Pulse Resp BP Pulse Ox O2 Del Method O2 Flow Rate 98.9 F 99 16 88/54 L 94 Mechanical Ventilator 15 01/18/24 08:00 01/18/24 11:08 01/18/24 11:08 01/18/24 11:00 01/18/24 11:08 01/18/24 11:50 01/16/24 14:11 FiO2 30 01/18/24 11:50 Oxygen Flow Rate (L/min) 15 Oxygen Delivery Method Mechanical Ventilator Weight: 114.2 kg Body Mass Index (BMI) 40.6 Intake & Output: Intake and Output for Last 24 Hours 01/16/24 01/17/24 01/18/24 23:59 23:59 23:59 Intake Total 2268.56 / 2271.44 3612.40 / 3612.40 2768.83 / 2768.83 Output Total 150 / 150 785 / 785 Balance 2118.56 / 2121.44 2827.40 / 2827.40 2738.83 / 2738.83 Lab / Micro Data 01/18/24 03:20 01/18/24 03:20 Labs: Laboratory Results - last 24 hr 01/16/24 13:50: Diff Path Review Reviewed 01/17/24 13:06: POC Glucose 103 01/17/24 18:32: POC Glucose 178 H 01/17/24 23:20: POC Glucose 207 H 01/18/24 03:20: WBC 22.1 H, RBC 5.43 H, Hgb 16.5 H, Hct 50.7 H, MCV 93.4 D, MCH 30.4, MCHC 32.5 D, RDW Std Deviation 45.3 H, RDW Coeff of Will 13.4, Plt Count 239, MPV 11.0, Immature Gran % (Auto) 1.000 H, Neut % (Auto) 89.8 H, Lymph % (Auto) 2.7 L, [place] % (Auto) 6.0, Eos % (Auto) 0.2, Baso % (Auto) 0.3, Absolute Neuts (auto) 19.9 H, Absolute Lymphs (auto) 0.59 L, Nucleated RBC % 0.1, PT 28.0 H, INR 2.6, Sodium 139, Potassium 3.4 L, Chloride 104, Carbon Dioxide 18.0 L, Anion Gap 17 H, BUN 48 H, Creatinine 4.13 H, Estim Creat Clear Calc 15.80, Est GFR (MDRD) Af Amer 14 L, Est GFR (MDRD) Non-Af 11 L, BUN/Creatinine Ratio 11.6, Glucose 192 H, Calcium 6.9 L, Phosphorus 6.2 H, Magnesium 1.9, Total Bilirubin 1.30 H, AST 46494 H, ALT 6489 H, Alkaline Phosphatase 163 H, Total Protein 5.7 L, Albumin 2.7 L, Globulin 3.0, Albumin/Globulin Ratio 0.9, TSH 1.55 01/18/24 05:02: POC Glucose 183 H 01/18/24 07:50: Random Vancomycin 19.1 H 01/18/24 11:31: POC Glucose 196 H Micro: Microbiology 01/17/24 06:49 Urine Catheter - Catheter Urine Culture - Preliminary Presumptive E. coli 01/16/24 15:46 Sputum, Induced/Lukens Gram Stain - Final ABG Data ABG results: ABG 01/18/24 11:15 Specimen Type ART Sample Site L Radial pH 7.53 H Bicarbonate Actual 21.7 L Total CO2 23 Base Excess -1 O2 Saturation 97 O2 % 30.0 ABG pCO2 25.7 L ABG pO2 76 Joseluis Test Positive Respiration Rate 14 O2 Delivery Device Adult Vent Vent Mode AC Tidal Volume 450.0 POC PEEP 5 Rhythm Strip Rhythm Strip: A-fib Rate: 68 Ectopy: None Physical Exam Narrative no obvious distress no pallor no icterus no JVD s1s2 no murmurs lungs clear abdomen soft no organomegaly no edema no cyanosis walls + Assessment & Plan Assessment/Plan (1) Acute kidney injury: PLAN: Baseline creatinine is normal, 1.1. Came in with cardiac arrest, likely has ischemic ATN. Walls catheter indwelling, chances of obstruction are low. Severe metabolic acidosis with lactic acidosis. She already has signs of anoxic brain injury including seizures, myoclonic jerks. Currently on Keppra. Improved with bicarbonate drip. Renal function worsening. No acute indications for renal replacement therapy. Appears to have poor prognosis overall. Discussed with ICU attending. Ongoing discussions about goals of care. (2) Metabolic acidosis:
--- NOTE | 2024-01-18 14:38 | CHAPLAIN ---
Type of Pastoral Visit _x__ Initial Visit ___ Follow-up Visit ___ On-call Visit ___ General Patient Visit ___ Spiritual Assessment ___ Family Conference ___ Bereavement ___ Rapid Response ___ Code Blue ___ Other (describe below) Pastoral Care Referral From ___ Patient ___ Family _x__ Nurse ___ Physician ___ Sheet Metal Duct Installer Apprentice ___ Airplane Inspector ___ Other (describe below) Sacrament/Intervention _x__ Active listening ___ Anointing ___ Taoist ___ Bereavement ___ Communion _x__ Rea exploration ___ _x__ Life review _x__ Prayer ___ Reconciliation ___ Sacrament of Sick _x__ Supportive presence ___ Wedding ___ Other (describe below) Pastoral Comments RN requested support for the of this patient; sat with of patient in the room as currently pt is intubated and unresponsive; pt reviews details of the day when he came home to find her unresponsive; pt has not recovered and it is unknown about amount of damage or possibilities of survival; spouse is feeling awful about the situation and has guilt about not being present at time of crisis; spouse talks through some of his emotions and fears of losing her; pt has siblings in the area who will be coming to hospital today; spouse is given time to talk, express himself, and review any needs; pt and spouse had attended a restoration but not currently active; spouse welcomes prayers and the presence of this pet trainer
--- NOTE | 2024-01-18 15:27 | CASEMGMT ---
IDA checked back in with patient's Adair. Patient's niece was present. Adair seemed to be managing as well as can be at this time. IDA told patient IDA will check back with him tomorrow. Adair thanked IDA. Melissa Loving ELECTROTYPER HELPER [employer]ON
[2024-01-18 17:47] LABS: Bedside Glucose 139 mg/dL (74-106)
[2024-01-18] MEDS: Amiodarone 150 MG in Dextrose 5%-Water (100mL Bag) 100 ML 600 MG IV BOLUS (20:19)
[2024-01-18 21:08] LABS: ALB/GLOB Ratio 0.9 RATIO (0.9-2.4); AST(SGOT) 5836 U/L (15-37); Alanine Aminotransfer ALT/SGPT 4714 U/L (13-56); Albumin, Serum 2.6 g/dL (3.2-5.0); Alkaline Phosphatase 158 U/L (45-117); Anion Gap 18 (5-15); BUN 61 mg/dL (7-18); BUN/Creat Ratio 11.9 RATIO (10-20); Calcium,Total 6.7 mg/dL (8.5-10.1); Chloride 102 mmol/L (98-107); Creatinine, Serum 5.13 mg/dL (0.55-1.02); EST Glomerular Filtration Rate 9 mL/min (>60); Est Glom Filt Rate - Afr Amer 11 mL/min (>60); Estimated Creatinine Clearance 12.72 ml/min; Globulin 2.9 g/dL (2.2-4.2); Glucose 132 mg/dL (74-106); Magnesium 1.8 mg/dL (1.6-2.6); Phosphorus 6.1 mg/dL (2.5-4.9); Potassium 3.8 mmol/L (3.5-5.1); Protein, Total 5.5 g/dL (6.4-8.2); Sodium Level 140 mmol/L (136-145)
[2024-01-18 23:16] LABS: Bedside Glucose 149 mg/dL (74-106)
[2024-01-19] VITALS (22 sets, daily range): BP systolic 111–172; BP diastolic 76–132; PULSE 90–140; RESP 14–48; TEMP 36.1–37.3; O2SAT 83–99; BMI 41.5
[2024-01-19] MEDS: Propofol 10MG/Ml 1,000 MG/100 ML Bottle 6.9 MG CONT INF ×2 (00:58→08:50)
[2024-01-19 05:16] LABS: Basophil# 0.07 X10^3/uL; Basophil% 0.3 % (0-1); Hematocrit 53.5 % (37-47); Hemoglobin 17.8 g/dL (12.0-15.0); Lymphocyte % 2.7 % (19-41); Mean Corp Hgb Conc 33.3 g/dL (32-36); Mean Corpuscular Hgb 30.7 pg (27.0-32.0); Mean Corpuscular Volume 92.2 fL (81-99); Mean Platelet Vol. 11.4 fl (6.2-12.0); Monocyte% 6.7 % (0-10); NRBC Flagged by Analyzer 0.2 % (0-5); Neutrophil # 19.97 X10^3/uL (2.7-7.7); Neutrophil % 89.1 % (47-70); POSITIVE DIFFERENTIAL YES; Platelet Count 200 K/mm3 (150-450); RBC Distribution Width CV 13.7 % (11.6-14.6); RBC Distribution Width SD 46.5 fl (35.1-43.9); White Blood Count 22.4 K/mm3 (4.4-11.0)
[2024-01-19 05:35] LABS: Prothrombin Time (Protime)PT. 22.2 SECONDS (11.7-14.9)
--- NOTE | 2024-01-19 06:00 | MRI_ITS ---
STUDY: MRI BRAIN WITHOUT CONTRAST REASON FOR EXAM: Female, 73 years old. s pt unresponsive, anoxic brain injury, cardiac arrest, unknown down time TECHNIQUE: Standardized multiplanar fat and water weighted pulse sequences were obtained. COMPARISON: Head CT dated January 16, 2024 FINDINGS: Diffuse bright T2 signal in the bilateral basal ganglia and thalami is consistent with sequela of hypoxic ischemia. Normal size of the ventricles and extra-axial spaces for the patient''s age. There are a limited number of small white matter hyperintensities, distributed throughout the deep white matter tracts of the cerebral hemispheres, consistent with mild chronic white matter ischemic changes. There is no evidence for recent intracranial ischemia or other cause of cytotoxic edema on diffusion weighted imaging (DWI). Normal T2* images of the brain without demonstrated susceptibility artifact. There is no demonstrated hemosiderin stain. There is no extra-axial fluid accumulation. Normal flow voids within the major intracranial circulation suggesting patency by spin echo criteria. Normal sella turcica, pituitary gland, infundibular stalk, optic chiasm and hypothalamus. Normal tectal plate and pineal gland. Normal midbrain, kulwant and medulla. Normal cerebellum. Normal basal cisterns. Normal bilateral temporal bones. Normal bilateral internal auditory canals. No demonstrated orbital abnormality, within the constraints of a routine brain study. Normal visualized paranasal sinuses. Normal calvarium and skull base. Normal visualized soft tissue structures. Normal visualized upper cervical spine. MRI/Brain without Contrast IMPRESSION: 1. Diffuse bright T2 signal in the bilateral basal ganglia and thalami is consistent with sequela of hypoxic ischemia. Electronically Signed: Varun Kemp MD at 10:51 EDT ,
[2024-01-19 06:13] LABS: Bedside Glucose 115 mg/dL (74-106)
[2024-01-19 06:20] LABS: ALB/GLOB Ratio 0.9 RATIO (0.9-2.4); AST(SGOT) 4510 U/L (15-37); Alanine Aminotransfer ALT/SGPT 4622 U/L (13-56); Albumin, Serum 2.9 g/dL (3.2-5.0); Alkaline Phosphatase 196 U/L (45-117); Anion Gap 25 (5-15); BUN 70 mg/dL (7-18); BUN/Creat Ratio 11.8 RATIO (10-20); Calcium,Total 7.3 mg/dL (8.5-10.1); Chloride 101 mmol/L (98-107); Creatinine, Serum 5.94 mg/dL (0.55-1.02); EST Glomerular Filtration Rate 7 mL/min (>60); Est Glom Filt Rate - Afr Amer 9 mL/min (>60); Estimated Creatinine Clearance 11.11 ml/min; Globulin 3.2 g/dL (2.2-4.2); Glucose 98 mg/dL (74-106); Potassium 3.9 mmol/L (3.5-5.1); Protein, Total 6.1 g/dL (6.4-8.2); Sodium Level 141 mmol/L (136-145)
--- NOTE | 2024-01-19 06:44 | PCM.PN.INT ---
Assessment & Plan Assessment/Plan (1) Cardiopulmonary arrest: (2) Acute kidney injury: (3) Metabolic acidosis: (4) Shock liver: PLAN: Plan RECOMMENDATIONS: 1. Continue assist-control mode of mechanical ventilation. Wean FiO2 and PEEP to maintain saturations at or above 90%. 2. Continue antibiotics. 3. Obtain MRI brain today for prognostication. 4. Continue current antiepileptics. 5. Obtain follow-up ABG this morning. 6. Continue appropriate ICU prophylaxis. 7. Ongoing goals of care discussion with the patient's . IMPRESSIONS: 1. Acute hypoxemic respiratory failure status post cardiac arrest The patient presented to the hospital after sustaining a cardiac arrest at home, with unknown downtime. She was emergently intubated in the ED and is demonstrating clinical findings concerning for anoxic brain injury. Plan to continue current supportive measures with invasive mechanical ventilatory support. FiO2 and PEEP will be weaned as tolerated. Overall, prognosis is quite poor. 2. Encephalopathy Clinical concern for anoxic brain injury. The patient was initially demonstrating generalized seizure activity and was subsequently placed on antiepileptics. No further seizure activity has been noted. EEG demonstrated severe diffuse encephalopathy. MRI brain is pending for today to assist with prognostication. 3. E. coli UTI Continue antimicrobials as ordered. 4. Multisystem organ failure In addition to the above, the patient has evidence of acute kidney and liver injury, most likely secondary to hypoperfusion in the setting of cardiac arrest. Nephrology is following to assist with medical management. 5. History of atrial fibrillation/NSTEMI Continue amiodarone as ordered. Cardiology is following. 6. Obesity/hypertension/GERD Complicates care, management, recovery and prognosis. Continue supportive care as noted above. TIME: 32 minutes of critical care time, independent of procedures, was spent addressing the patient's acute hypoxemic respiratory failure, status postcardiac arrest, encephalopathy, multisystem organ failure, review of all data and collaboration with the care team. Subjective Subjective The patient was seen and examined at the bedside this morning. Events from the last 24 hours have been reviewed. The patient is currently afebrile, hemodynamically stable and maintaining appropriate oxygen saturations on assist-control mode mechanical ventilation with an FiO2 requirement of 30% and PEEP of 5. The patient remains neurologically unchanged from previous. She has no cough or gag, but still initiates spontaneous breaths on CPAP. MRI brain is pending for this morning. White count is elevated at 22,000. Serum bicarbonate remains low at 15 with a creatinine of 5.94. Urine output is dismal. There has been some mild improvement in the patient's liver function profile. Objective Data Objective Data The patient's most recent lab work, culture data and imaging studies have all been personally reviewed. Surface echocardiogram demonstrated normal LV size with an ejection fraction of 35%. Pulmonary artery systolic pressure was estimated to be 40 mmHg. Preliminary urine culture is positive for E. coli. Vital Signs: Vital Signs Temp Pulse Resp BP Pulse Ox O2 Del Method O2 Flow Rate 98 F 99 48 H 134/108 H 97 Mechanical Ventilator 15 01/19/24 00:00 01/19/24 06:00 01/19/24 06:00 01/19/24 06:00 01/19/24 06:00 01/19/24 06:00 01/16/24 14:11 FiO2 30 01/19/24 06:00 Oxygen Flow Rate (L/min) 15 Oxygen Delivery Method Mechanical Ventilator Weight: 257 lb 0.944 oz Body Mass Index (BMI) 41.5 Intake & Output: Intake and Output for Last 24 Hours 01/17/24 01/18/24 01/19/24 23:59 23:59 23:59 Intake Total 3612.40 / 3612.40 3076.83 / 3076.83 333.03 / 333.03 Output Total 785 / 785 30 Balance 2827.40 / 2827.40 3046.83 / 3046.83 333.03 / 333.03 Lab / Micro Data Attestation: I reviewed the patient's lab results. 01/19/24 04:30 01/19/24 04:30 Labs: Laboratory Results - last 24 hr 01/16/24 13:50: Diff Path Review Reviewed 01/18/24 07:50: Random Vancomycin 19.1 H 01/18/24 11:31: POC Glucose 196 H 01/18/24 17:27: POC Glucose 139 H 01/18/24 20:05: Sodium 140, Potassium 3.8, Chloride 102, Carbon Dioxide 20.0 L, Anion Gap 18 H, BUN 61 H, Creatinine 5.13 H, Estim Creat Clear Calc 12.72, Est GFR (MDRD) Af Amer 11 L, Est GFR (MDRD) Non-Af 9 L, BUN/Creatinine Ratio 11.9, Glucose 132 H, Calcium 6.7 L, Phosphorus 6.1 H, Magnesium 1.8, Total Bilirubin 1.30 H, AST 5836 H, ALT 4714 H, Alkaline Phosphatase 158 H, Total Protein 5.5 L, Albumin 2.6 L, Globulin 2.9, Albumin/Globulin Ratio 0.9 01/18/24 22:56: POC Glucose 149 H 01/19/24 04:30: WBC 22.4 H, RBC 5.80 H, Hgb 17.8 H, Hct 53.5 H, MCV 92.2, MCH 30.7, MCHC 33.3, RDW Std Deviation 46.5 H, RDW Coeff of Will 13.7, Plt Count 200, MPV 11.4, Immature Gran % (Auto) 1.200 H, Neut % (Auto) 89.1 H, Lymph % (Auto) 2.7 L, [place] % (Auto) 6.7, Eos % (Auto) 0.0, Baso % (Auto) 0.3, Absolute Neuts (auto) 20.0 H, Absolute Lymphs (auto) 0.60 L, Nucleated RBC % 0.2, PT 22.2 H, INR 2.0, Sodium 141, Potassium 3.9, Chloride 101, Carbon Dioxide 15.0 L, Anion Gap 25 H, BUN 70 H, Creatinine 5.94 H, Estim Creat Clear Calc 11.11, Est GFR (MDRD) Af Amer 9 L, Est GFR (MDRD) Non-Af 7 L, BUN/Creatinine Ratio 11.8, Glucose 98, Calcium 7.3 L, Total Bilirubin 1.70 H, AST 4510 H, ALT 4622 H, Alkaline Phosphatase 196 H, Total Protein 6.1 L, Albumin 2.9 L, Globulin 3.2, Albumin/Globulin Ratio 0.9 01/19/24 05:15: POC Glucose 115 H Micro: Microbiology 01/17/24 06:49 Urine Catheter - Catheter Urine Culture - Preliminary Presumptive E. coli 01/16/24 15:46 Sputum, Induced/Lukens Gram Stain - Final ABG Data ABG results: ABG 01/18/24 11:15 Specimen Type ART Sample Site L Radial pH 7.53 H Bicarbonate Actual 21.7 L Total CO2 23 Base Excess -1 O2 Saturation 97 O2 % 30.0 ABG pCO2 25.7 L ABG pO2 76 Joseluis Test Positive Respiration Rate 14 O2 Delivery Device Adult Vent Vent Mode AC Tidal Volume 450.0 POC PEEP 5 Radiography Diagnostic Testing: Radiology Impression Echocardiogram 01/16/24 16:26 Interpretation Summary Normal LV size. The estimated ejection fraction is 35 %. No regional wall motion abnormalities noted. Pulmonary artery systolic pressure is 40 mmHg. Contrast injection was performed. Ordering Physician: Ana Goldsmith Performed By: Quin Bermudez, OC, RVT Rhythm Strip Rhythm Strip: A-fib Rate: 68 Ectopy: None Physical Exam Const Constitutional Narrative: Intubated, sedated and mechanically ventilated. HEENT normocephalic and head/scalp atraumatic Mouth: endotracheal tube in place and OG tube in place Eyes Eyes Narrative: Sluggish pupillary response bilaterally. Neck supple General: trachea midline Chest inspection of chest normal Resp Effort and Inspection: tachypneic Auscultation: diminished lung sounds; Negative for rales, rhonchi or wheezes Cardio regular rate, regular rhythm, S1 normal heart sound and S2 normal heart sound GI normal to inspection, nondistended, normoactive bowel sounds Extremity no clubbing, cyanosis or edema Skin no rashes or lesions noted Neuro Neuro Narrative: Comatose on ventilator. Still initiate spontaneous breaths on CPAP. No gag or cough is present. Charges/Coding Procedures Hospitalists Procedures: 43127 Critical Care 1st Hr
[2024-01-19 08:15] LABS: Allen Test Positive; Base Excess -12 mmol/L (-2 to +2); Bicarbonate 11.5 mmol/L (22-26); Blood Gas Specimen Type ART; Mode AC/VC; O2 Delivery Device Adult Vent; PEEP 5; PO2 109 mmHG (75-100); RR 14; SITE R Radial; SO2 99 % (95-99); Total Carbon Dioxide 12 mmol/L; pCO2 16.2 mmHg (35-45); pH 7.46 (7.35-7.45)
--- NOTE | 2024-01-19 08:17 | CPS ---
Critical [facility].
--- NOTE | 2024-01-19 08:43 | PN.HOSP_ITS ---
Reason for Visit Reason for Visit: Cardiopulmonary arrest Subjective Subjective Patient developed wide-complex tachycardia overnight for which she was given amiodarone bolus and amiodarone drip was reinitiated. No further issues. Multisystem organ function continues to worsen with worsening renal function and liver function. MRI of the brain is pending which will hopefully give us more prognosis like data to present to her . Objective Data Objective Data Vital Signs: Vital Signs Temp Pulse Resp BP Pulse Ox O2 Del Method O2 Flow Rate 97.0 F L 105 H 23 H 150/111 H 98 Mechanical Ventilator 15 01/19/24 08:00 01/19/24 08:00 01/19/24 08:00 01/19/24 08:00 01/19/24 08:00 01/19/24 08:00 01/16/24 14:11 FiO2 30 01/19/24 08:00 Oxygen Flow Rate (L/min) 15 Oxygen Delivery Method Mechanical Ventilator Weight: 116.6 kg Body Mass Index (BMI) 41.5 Intake & Output: Intake and Output for Last 24 Hours 01/17/24 01/18/24 01/19/24 23:59 23:59 23:59 Intake Total 3612.40 / 3612.40 3076.83 / 3076.83 333.03 / 333.03 Output Total 785 / 785 30 Balance 2827.40 / 2827.40 3046.83 / 3046.83 333.03 / 333.03 Lab / Micro Data 01/19/24 04:30 01/19/24 04:30 Labs: Laboratory Results - last 24 hr 01/18/24 07:50: Random Vancomycin 19.1 H 01/18/24 11:31: POC Glucose 196 H 01/18/24 17:27: POC Glucose 139 H 01/18/24 20:05: Sodium 140, Potassium 3.8, Chloride 102, Carbon Dioxide 20.0 L, Anion Gap 18 H, BUN 61 H, Creatinine 5.13 H, Estim Creat Clear Calc 12.72, Est GFR (MDRD) Af Amer 11 L, Est GFR (MDRD) Non-Af 9 L, BUN/Creatinine Ratio 11.9, Glucose 132 H, Calcium 6.7 L, Phosphorus 6.1 H, Magnesium 1.8, Total Bilirubin 1.30 H, AST 5836 H, ALT 4714 H, Alkaline Phosphatase 158 H, Total Protein 5.5 L, Albumin 2.6 L, Globulin 2.9, Albumin/Globulin Ratio 0.9 01/18/24 22:56: POC Glucose 149 H 01/19/24 04:30: WBC 22.4 H, RBC 5.80 H, Hgb 17.8 H, Hct 53.5 H, MCV 92.2, MCH 30.7, MCHC 33.3, RDW Std Deviation 46.5 H, RDW Coeff of Will 13.7, Plt Count 200, MPV 11.4, Immature Gran % (Auto) 1.200 H, Neut % (Auto) 89.1 H, Lymph % (Auto) 2.7 L, [place] % (Auto) 6.7, Eos % (Auto) 0.0, Baso % (Auto) 0.3, Absolute Neuts (auto) 20.0 H, Absolute Lymphs (auto) 0.60 L, Nucleated RBC % 0.2, PT 22.2 H, INR 2.0, Sodium 141, Potassium 3.9, Chloride 101, Carbon Dioxide 15.0 L, Anion Gap 25 H, BUN 70 H, Creatinine 5.94 H, Estim Creat Clear Calc 11.11, Est GFR (MDRD) Af Amer 9 L, Est GFR (MDRD) Non-Af 7 L, BUN/Creatinine Ratio 11.8, Glucose 98, Calcium 7.3 L, Total Bilirubin 1.70 H, AST 4510 H, ALT 4622 H, Alkaline Phosphatase 196 H, Total Protein 6.1 L, Albumin 2.9 L, Globulin 3.2, Albumin/Globulin Ratio 0.9 01/19/24 05:15: POC Glucose 115 H Micro: Microbiology 01/17/24 06:49 Urine Catheter - Catheter Urine Culture - Final Presumptive E. coli 01/16/24 15:46 Sputum, Induced/Lukens Gram Stain - Final 01/16/24 15:46 Sputum, Induced/Lukens Respiratory Culture - Final ABG Data ABG results: ABG 01/18/24 01/19/24 11:15 08:11 Specimen Type ART ART Sample Site L Radial R Radial pH 7.53 H 7.46 H Bicarbonate Actual 21.7 L 11.5 L Total CO2 23 12 Base Excess -1 -12 L O2 Saturation 97 99 O2 % 30.0 30.0 ABG pCO2 25.7 L 16.2 L* ABG pO2 76 109 H Joseluis Test Positive Positive Respiration Rate 14 14 O2 Delivery Device Adult Vent Adult Vent Vent Mode AC AC/VC Tidal Volume 450.0 450.0 POC PEEP 5 5 Crit Call To/Read Back Yes Rhythm Strip Rhythm Strip: A-fib Rate: 68 Ectopy: None Physical Exam Const no apparent distress and well nourished; Negative for average body habitus or healthy appearing Constitutional Narrative: Obese, older, white female, intubated and sedated, lying in bed HEENT normocephalic, head/scalp atraumatic and moist oral mucous membranes Eyes PERRL and conjunctivae normal Eyes Narrative: No scleral icterus Neck no lymphadenopathy and supple Neck Narrative: Neck is short and thick, trachea is midline, no thyroid enlargement appreciated Lymph Lymphatic: no lymphadenopathy noted and no lymphedema noted Resp normal respiratory effort, no retractions, no use of accessory muscles and clear to auscultation bilaterally Resp Narrative: intubated, sedated, diminished breath sounds bilaterally, no wheezes or crackles. On the ventilator. Auscultation: Negative for rales, rhonchi or wheezes Cardio regular rate, regular rhythm, S1 normal heart sound, S2 normal heart sound, no murmurs, no rub, no gallops and no clicks GI normal to inspection, nondistended, normoactive bowel sounds, soft to palpation and non-tender Extremity normal capillary refill, no clubbing, cyanosis or edema and no calf tenderness Extremity Narrative: Pedal pulses and radial pulses are both 2+ General Extremity: no tenderness to palpation of joints or extremities Skin no rashes or lesions noted, no wounds, skin turgor normal, no jaundice, no petechiae and no mottling Skin Narrative: Right upper extremity PICC in place with dressing clean dry and intact General Skin Exam: no breakdown Neuro Neuro Narrative: Patient is intubated and sedated , fasciculations around both eyes noted, no response to any tactile or noxious stimulus, pupils are nonreactive Speech: speech normal Psych Psych Narrative: Unable to assess Assessment & Plan Assessment/Plan (1) Cardiopulmonary arrest: (2) Acute kidney injury: (3) Metabolic acidosis: (4) Lactic acidosis: (5) Leukocytosis: (6) Shock liver: (7) History of atrial fibrillation: PLAN: Plan Acute cardiopulmonary arrest -Downtime is not exactly clear as patient was found slumped over in a chair when her arrived home and he started CPR at that time with ROSC and route to the emergency department -Intubated by the emergency department on 01/16/2024 -Etiology is unclear -Patient is mechanically ventilated -Remains unresponsive and this appears to be neurologically devastating event -Echocardiogram showed an EF of 35% with global wall motion depression and no focal abnormalities with a pulmonary systolic pressure of 40 mmHg -MRI is pending -Full cardiac workup being deferred until cerebral function can be declared and recovered Acute hypoxic respiratory failure secondary to the above -A-fib intubated in the emergency department on 01/16/2024 -Patient is on propofol and fentanyl for sedation -Patient currently on minimal vent settings with an FiO2 of 30% having an oxygen saturation of 94% -Weaning trials as able once medically appropriate--> brainstem does appear to be intact as patient is breathing above the ventilator E. coli UTI -Resistant to quinolones but otherwise sensitive -Continue Zosyn and vancomycin for now -Awaiting blood culture results Shock-multifactorial -Type unclear -Patient was pancultured on admission -Continue vancomycin and Zosyn -Blood culture results are pending -Echocardiogram shows EF 35% DOLORES -Suspect secondary to ischemic ATN -Baseline serum creatinine appears to run between 1 and 1.2 -Serum creatinine presentation was 1.56 and now worse today with likely decreased perfusion from arrest--> current serum creatinine is 5.94 -Avoid nephrotoxins -Supportive care -Continue Sun -Nephrology following--> with overall poor prognosis feel that nephrology may not even offer dialysis at this point -Will discuss further as I do suspect we will get to the point where continue to make that decision Anion gap metabolic acidosis -ABG is alkalotic however patient's respiratory was 23 and her serum bicarb is low -Will restart bicarb drip with 150 mEq of bicarb and D5W Shock liver -Secondary to the above -Liver functions continue to worsen -Coags elevated but stable -Likely related to hepatic necrosis from ischemia during arrest -Continue to monitor Coagulopathy -Secondary to shock liver -Repeat coags in a.m. Toxic/metabolic encephalopathy -Likely anoxia -MRI pending -Anticipate this is going to be neurologically devastating Seizures -Continue Depakote and Keppra -EEG showed severe diffuse encephalopathy with no seizure or epileptiform discharges captured -Neurology evaluated the patient overall feels like prognosis is extremely poor -MRI pending Leukocytosis -Trending up despite antibiotic use but does appear to be somewhat stabilizing -Urine culture shows E. coli UTI -Blood cultures remain pending -Continue vancomycin and Zosyn for now -suspect reactive NSTEMI -Unclear if this cause or effect related to cardiopulmonary arrest -Echo shows EF of 35% with global dysfunction -Cardiology is following and will plan on invasive workup depending on brain function and recovery Atrial fibrillation/wide-complex tachycardia -Continue amiodarone drip -Anticoagulation is currently on hold due to the above -Appreciate cardiology assistance Hyperlipidemia -Hold atorvastatin with shock liver GERD/PUD -Continue Protonix 40 mg IV daily Hypertension -Med reconciliation has not yet been verified however it does not appear she is on any antihypertensives at baseline -Will continue to monitor Osteoarthritis -No current intervention needed -avoid Tylenol due to shock liver History of nephrolithiasis -No acute issues DVT prophylaxis -Continue heparin 3 times daily CODE STATUS -Full code Overall prognosis is extremely poor given multisystem organ failure. Will have further discussion once we obtain MRI. Charges/Coding Visit Charges Inpatient E&M: 82039 Subs Hosp L2
[2024-01-19] MEDS: Amiodarone 360 MG in Dextrose 5% Viaflo Bag 192.8 ML 16.7 MG CONT INF (08:48)
[2024-01-19] MEDS: CHLORHEXIDINE GLUC 2% CLOTH 1 EACH TOWELETTE TOPICAL (08:51)
[2024-01-19] MEDS: Chlorhexidine 15 ML PO (08:51)
--- NOTE | 2024-01-19 09:00 | NURSING ---
Patient off unit for MRI
--- NOTE | 2024-01-19 10:30 | NURSING ---
Patient returned from MRI
[2024-01-19] MEDS: Sodium Bicarbonate 150 MEQ in Dextrose 5%-Water (1000mL Bag) 1,000 ML 100 MEQ IV (10:43)
[2024-01-19] MEDS: levETIRAcetam IV 1,000 MG/100 ML BAG 400 MG IV ×2 (10:48→21:28)
[2024-01-19] MEDS: Pantoprazole Sodium 40 MG in 0.9% Normal Saline (100mL MB+) 100 ML 330 MG IV (11:20)
[2024-01-19] MEDS: Valproate Sodium 500 MG in Dextrose 5%-Water (50mL Bag) 50 ML 50 MG IV ×2 (11:59→21:27)
[2024-01-19] MEDS: Piperacil/Tazobactam 3.375 GM in 0.9% Normal Saline (50mL MB+) 50 ML IV (12:09)
[2024-01-19 12:36] LABS: Bedside Glucose 147 mg/dL (74-106)
--- NOTE | 2024-01-19 14:10 | CHAPLAIN ---
Type of Pastoral Visit ___ Initial Visit _x__ Follow-up Visit ___ On-call Visit ___ General Patient Visit ___ Spiritual Assessment ___ Family Conference ___ Bereavement ___ Rapid Response ___ Code Blue ___ Other (describe below) Pastoral Care Referral From ___ Patient _x__ Family ___ Nurse ___ Physician ___ Mini Lab Operator ___ Aerospace Engineer ___ Other (describe below) Sacrament/Intervention _x__ Active listening ___ Anointing ___ Yazidism ___ Bereavement ___ Communion ___ Rea exploration ___ _x__ Life review ___ Prayer ___ Reconciliation ___ Sacrament of Sick _x__ Supportive presence ___ Wedding ___ Other (describe below) Pastoral Comments met with spouse and then later with a niece as they have heard this morning of more disappointing news about condition of the patient who remains unresponsive and intubated; other family members, siblings and niece will arrive today as well to discuss decisions and plans for extubation or further life prolonging measures; time to listen and help process thoughts; offer of future support as needed when family gathers
--- NOTE | 2024-01-19 14:41 | PCM.HOSP.N ---
Hospitalist Note Extensive conversation with family with regards to overall prognosis and goals of care. They have elected to terminally extubate her when the rest of her family gets here. DNR CC ordered in and will place comfort medication once the rest the family gets here and we are ready to extubate.
--- NOTE | 2024-01-19 15:00 | CASEMGMT ---
SW met with patient's Adair and brother. SW sat down and talked with both providing support. SW told Adair if he would like SW he can always ask. Adair was thankful for SW checking in with him during this difficult time. Melissa OSORIO
--- NOTE | 2024-01-19 15:17 | NURSING ---
-1430 [facility] notified patients family is withdrawing care this evening, unknown time. -1441 [facility] staff called back, OK to withdraw care- call back with time of cardiac .
--- NOTE | 2024-01-19 15:44 | CPS ---
pt terminally extubated, family at bedside.
[2024-01-19] MEDS: LORazepam 2 MG/ML Syringe IV ×3 (15:46→21:28)
[2024-01-19] MEDS: HYDROmorphone 1 MG/ML Syringe IV ×3 (15:46→18:28)
--- NOTE | 2024-01-19 16:08 | NURSING ---
Patient terminally extubated at 1554, family at bedside
--- NOTE | 2024-01-19 16:21 | CHAPLAIN ---
Type of Pastoral Visit ___ Initial Visit ___ Follow-up Visit ___ On-call Visit ___ General Patient Visit ___ Spiritual Assessment ___ Family Conference _x__ Bereavement ___ Rapid Response ___ Code Blue ___ Other (describe below) Pastoral Care Referral From ___ Patient _x__ Family _x__ Nurse ___ Physician ___ Clock Repairer ___ Cage Tender ___ Other (describe below) Sacrament/Intervention ___ Active listening ___ Anointing ___ Gnosticist _x__ Bereavement ___ Communion ___ Rea exploration ___ ___ Life review _x__ Prayer ___ Reconciliation ___ Sacrament of Sick _x__ Supportive presence ___ Wedding ___ Other (describe below) Pastoral Comments patient has been extubated and family requests prayer and supportive presence; offered presence and met more family members than previously; offered prayer and scriptures; prayer blanket and comfort cart has already been placed by staff; moments of quiet given to family
--- NOTE | 2024-01-19 16:23 | PN.RENAL_ITS ---
Subjective Subjective remains intubated Objective Data Objective Data Vital Signs: Vital Signs Temp Pulse Resp BP Pulse Ox O2 Del Method O2 Flow Rate 99.1 F 97 20 H 122/89 H 96 Room Air 15 01/19/24 12:00 01/19/24 15:00 01/19/24 15:00 01/19/24 15:00 01/19/24 15:00 01/19/24 15:44 01/16/24 14:11 FiO2 30 01/19/24 15:00 Oxygen Flow Rate (L/min) 15 Oxygen Delivery Method Room Air Weight: 116.6 kg Body Mass Index (BMI) 41.5 Intake & Output: Intake and Output for Last 24 Hours 01/17/24 01/18/24 01/19/24 23:59 23:59 23:59 Intake Total 3612.40 / 3612.40 3076.83 / 3076.83 1420.06 / 1420.06 Output Total 785 / 785 70 / 70 Balance 2827.40 / 2827.40 3046.83 / 3046.83 1350.06 / 1350.06 Lab / Micro Data 01/19/24 04:30 01/19/24 04:30 Labs: Laboratory Results - last 24 hr 01/18/24 17:27: POC Glucose 139 H 01/18/24 20:05: Sodium 140, Potassium 3.8, Chloride 102, Carbon Dioxide 20.0 L, Anion Gap 18 H, BUN 61 H, Creatinine 5.13 H, Estim Creat Clear Calc 12.72, Est GFR (MDRD) Af Amer 11 L, Est GFR (MDRD) Non-Af 9 L, BUN/Creatinine Ratio 11.9, Glucose 132 H, Calcium 6.7 L, Phosphorus 6.1 H, Magnesium 1.8, Total Bilirubin 1.30 H, AST 5836 H, ALT 4714 H, Alkaline Phosphatase 158 H, Total Protein 5.5 L, Albumin 2.6 L, Globulin 2.9, Albumin/Globulin Ratio 0.9 01/18/24 22:56: POC Glucose 149 H 01/19/24 04:30: WBC 22.4 H, RBC 5.80 H, Hgb 17.8 H, Hct 53.5 H, MCV 92.2, MCH 30.7, MCHC 33.3, RDW Std Deviation 46.5 H, RDW Coeff of Will 13.7, Plt Count 200, MPV 11.4, Immature Gran % (Auto) 1.200 H, Neut % (Auto) 89.1 H, Lymph % (Auto) 2.7 L, Frontier % (Auto) 6.7, Eos % (Auto) 0.0, Baso % (Auto) 0.3, Absolute Neuts (auto) 20.0 H, Absolute Lymphs (auto) 0.60 L, Nucleated RBC % 0.2, PT 22.2 H, INR 2.0, Sodium 141, Potassium 3.9, Chloride 101, Carbon Dioxide 15.0 L, Anion Gap 25 H, BUN 70 H, Creatinine 5.94 H, Estim Creat Clear Calc 11.11, Est GFR (MDRD) Af Amer 9 L, Est GFR (MDRD) Non-Af 7 L, BUN/Creatinine Ratio 11.8, Glucose 98, Calcium 7.3 L, Total Bilirubin 1.70 H, AST 4510 H, ALT 4622 H, Alkaline Phosphatase 196 H, Total Protein 6.1 L, Albumin 2.9 L, Globulin 3.2, Albumin/Globulin Ratio 0.9 01/19/24 05:15: POC Glucose 115 H 01/19/24 12:16: POC Glucose 147 H Micro: Microbiology 01/17/24 06:15 Blood Culture (Wb) - Left Wrist Blood Culture - Preliminary No growth in 48 hours. 01/17/24 06:15 Blood Culture (Wb) - Left Hand Blood Culture - Preliminary No growth in 48 hours. 01/17/24 06:49 Urine Catheter - Catheter Urine Culture - Final Presumptive E. coli 01/16/24 15:46 Sputum, Induced/Lukens Gram Stain - Final 01/16/24 15:46 Sputum, Induced/Lukens Respiratory Culture - Final ABG Data ABG results: ABG 01/19/24 08:11 Specimen Type ART Sample Site R Radial pH 7.46 H Bicarbonate Actual 11.5 L Total CO2 12 Base Excess -12 L O2 Saturation 99 O2 % 30.0 ABG pCO2 16.2 L* ABG pO2 109 H Joseluis Test Positive Respiration Rate 14 O2 Delivery Device Adult Vent Vent Mode AC/VC Tidal Volume 450.0 POC PEEP 5 Crit Call To/Read Back Yes Radiography Diagnostic Testing: Radiology Impression Brain MRI 01/19/24 06:00 IMPRESSION: 1. Diffuse bright T2 signal in the bilateral basal ganglia and thalami is consistent with sequela of hypoxic ischemia. Electronically Signed: Varun Kemp MD at 10:51 EDT , Rhythm Strip Rhythm Strip: A-fib Rate: 68 Ectopy: None Physical Exam Narrative no obvious distress no pallor no icterus no JVD s1s2 no murmurs lungs clear abdomen soft no organomegaly no edema no cyanosis walls + Assessment & Plan Assessment/Plan (1) Acute kidney injury: PLAN: Baseline creatinine is normal, 1.1. Came in with cardiac arrest, likely has ischemic ATN. Walls catheter indwelling, chances of obstruction are low. Severe metabolic acidosis with lactic acidosis. She already has signs of anoxic brain injury including seizures, myoclonic jerks. Currently on Keppra. Improved with bicarbonate drip. Renal function worsening. dw hospitalist. likely CC today (2) Metabolic acidosis:
[2024-01-19] MEDS: Glycopyrrolate 0.2 MG/ML Vial 0.1 MG IV (16:29)
[2024-01-20] VITALS (13 sets, daily range): BP systolic 134–140; BP diastolic 103–112; PULSE 103–125; RESP 16–25; TEMP 36.4–37.1; O2SAT 89–91
[2024-01-20] MEDS: 0.9% Saline Lock 10 ML Syringe IV ×2 (04:58→13:04)
[2024-01-20] MEDS: LORazepam 2 MG/ML Syringe IV ×2 (04:59→13:04)
[2024-01-20] MEDS: levETIRAcetam IV 1,000 MG/100 ML BAG 400 MG IV (09:17)
[2024-01-20] MEDS: Valproate Sodium 500 MG in Dextrose 5%-Water (50mL Bag) 50 ML 50 MG IV (09:48)
--- NOTE | 2024-01-20 10:02 | PCM.PN.TICU ---
Objective Data Objective Data Vital Signs: Vital Signs Last response Temperature 36.4 C L 01/20/24 08:15 Temperature Source Axillary 01/20/24 08:15 Pulse Rate 120 H 01/20/24 08:15 Pulse Strength Weak (1+) 01/19/24 10:00 Respiratory Rate 24 H 01/20/24 08:15 Respiratory Effort Mechanically Ventilated 01/19/24 12:00 Respiratory Depth Normal 01/18/24 15:41 Respiratory Pattern Cesar-King 01/20/24 08:19 Blood Pressure 134/104 H 01/20/24 08:15 Blood Pressure Mean 114 01/20/24 08:15 Blood Pressure Source Monitor 01/20/24 08:15 Blood Pressure Position Semi-Fowlers 01/20/24 08:15 Blood Pressure Location Left Arm 01/20/24 08:15 Pulse Ox 89 01/20/24 08:15 Oxygen Delivery Method Room Air 01/20/24 08:19 Oxygen Flow Rate (L/min) 15 01/16/24 14:11 Fraction of Inspired Oxygen (FIO2) 30 01/19/24 15:00 I&O: I&O Last 24 Hours 01/19/24 01/19/24 01/20/24 11:59 23:59 11:59 Intake Total 597.33 / 1575.06 977.73 / 1575.06 100 / 100 Output Total 70 / 70 Balance 597.33 / 1505.06 907.73 / 1505.06 100 / 100 I&O: Total Stay 01/16/24 13:42 thru 01/20/24 09:48 Intake Total 98830.85 Output Total 1035 Balance 9597.85 Current Meds Ordered / Administered: Current meds ordered / Administered Generic Name Dose Route Start Last Admin Trade Name Freq PRN Reason Stop Dose Admin Acetaminophen 650 mg 01/17/24 05:39 01/17/24 12:50 Acetaminophen 650 Mg/20 Ml Udc GT 650 mg Q6H PRN PRN Administration Pain 1-10 or Fever Glycopyrrolate 0.1 mg 01/19/24 15:34 01/19/24 16:29 Glycopyrrolate 0.2 Mg/Ml Vial IV 0.1 mg Q4H PRN Administration Congestion/terminal secretions Hydromorphone HCl 1 mg 01/19/24 15:34 01/19/24 18:28 Hydromorphone 1 Mg/Ml Syringe IV 1 mg Q1H PRN PRN Administration terminal agitation or pain Sodium Chloride 250 mls @ 15 mls/hr 01/16/24 16:42 IV .[id number] PRN Additional IVPB Infusion Sodium Chloride 250 mls @ 15 mls/hr 01/16/24 16:42 IV .[id number] PRN Saline Flush Levetiracetam 1,000 mg in 100 mls @ 400 mls/hr 01/17/24 10:00 01/20/24 09:48 IV Infused Q12 VASHTI Infusion Valproic Acid 500 mg/ Dextrose 55 mls @ 50 mls/hr 01/17/24 10:00 01/20/24 09:48 IV 50 mls/hr BID VASHTI Administration Lorazepam 2 mg 01/19/24 15:32 01/20/24 04:59 Lorazepam 2 Mg/Ml Syringe IV 2 mg Q1H PRN PRN Administration agitation or seizure Ondansetron HCl 4 mg 01/16/24 16:26 Ondansetron 4 Mg/2 Ml Vial IV Q8H PRN PRN NAUSEA/VOMITING Sodium Chloride 10 - 40 ml 01/16/24 16:42 01/20/24 04:58 0.9% Saline Lock 10 Ml Syringe IV 10 ml UD PRN Administration SALINE FLUSH Lab / Micro Data 01/19/24 04:30 01/19/24 04:30 Labs: Laboratory Results - last 24 hr 01/19/24 12:16: POC Glucose 147 H Micro: Microbiology 01/17/24 06:15 Blood Culture (Wb) - Left Wrist Blood Culture - Preliminary No growth in 48 hours. 01/17/24 06:15 Blood Culture (Wb) - Left Hand Blood Culture - Preliminary No growth in 48 hours. 01/17/24 06:49 Urine Catheter - Catheter Urine Culture - Final Presumptive E. coli 01/16/24 15:46 Sputum, Induced/Lukens Gram Stain - Final 01/16/24 15:46 Sputum, Induced/Lukens Respiratory Culture - Final Rhythm Strip Rhythm Strip: A-fib Rate: 68 Ectopy: None Imaging Radiology Impression Brain MRI 01/19/24 06:00 IMPRESSION: 1. Diffuse bright T2 signal in the bilateral basal ganglia and thalami is consistent with sequela of hypoxic ischemia. Electronically Signed: Varun Kemp MD at 10:51 EDT , Assessment and Plan . Assessment and plan: Critical Care Time: The entirety of this encounter was done via Telemedicine Subjective Subjective Telemedicine Pulmonary/ICU Progress Note Brief summary: 73Y F who presented to the ED after being found unresponsive by her . He apparently initiated CPR after contacting EMS. The patient was ultimately noted to be in asystole upon EMS arrival. She received 2 rounds of epinephrine with subsequent ROSC. Pt was intubated in the ED. EKG demonstrated evidence of atrial fibrillation. Overnight, according to nursing report, the patient had demonstrated generalized seizure activity, for which she was initiated on Keppra. The patient was also started on amiodarone for rate control. Sub: Pt seen and examined. Intubated. No sig changes. PE: General: Well developed, intubated HEENT: anicteric Sclera; + ETT, nl nose; supple neck, no masses Cardiovascular: Regular Rate and Rhythm; No murmurs, rubs, gallops; no displaced PMI Respiratory: diminished; no crackles, wheezes, or rhonchi Abdominal: Non-tender; Non distended; hypoBS x 4; No Hepatosplenomegaly Extremities: Warm, well perfused; No clubbing, cyanosis; capillary refill < 2 sec Neurological: unresponsiev A/P: #Acute respiratory failure #SP cardiac arrest #Acute encephalopathy- likely hypoxemic/ischemic etiology #DOLORES #Metabolic acidosis #Shock liver #UTI #Hx Afib/NSTEMI #Obesity/HTN/GERD -Cont MV; settings reviewed/adjusted -Cont neuro exams & prognostications, unknown but suspected prolonged downtime alone with very poor presenting exam suggests poor outcome, EEG demonstrated severe diffuse encephalopathy, MRI with findings of diffuse bright T2 signal in B/L BG & thalami c/w sequela of hypoxic ischemia per radiology, neurology consulted 01/16 -Cont AEDs -Cont Abx -Cont strict I/Os, nephrology on board -Cont amio, cardiology on board Dismal prognosis, would F/U goals with family Juan Bermudez MD CCT: 50 min Entirety of encounter done via telemedicine.
--- NOTE | 2024-01-20 13:14 | DS.PCM_ITS ---
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 / Pulmonary Medicine Routine Consulting Provider: Intensivists/Pulmonary Med Reason for Consult: cardiopulmonary arrest EMERGENT Consult: No MD Notified: Yes Date Notified: 01/16/24 Time Notified: 16:13 Method of Notification: Text 01/16/24 16:46 Consult: Tele-Neurology Routine Consulting Provider: [facility] Reason for Consult: seizures EMERGENT Consult: No MD Notified: Yes Date Notified: 01/16/24 Time Notified: 16:47 Method of Notification: Answering Service Nursing Unit Staff Notify [facility] of Tele-Neurology Consult: Yes 01/17/24 07:24 Consult: Nephrology Routine Consulting Provider: Andres Flynn Reason for Consult: DOLORES, Metabolic Acidosis EMERGENT Consult: No Notified: Yes Date Notified: 01/17/24 Time Notified: 07:24 Method of Notification: Answering Service 01/20/24 06:44 Consult: Hospice / Palliative Care Routine Consulting Provider: [facility] Reason for Consult: cpa s/p terminal extubation EMERGENT Consult: No MD Notified: Yes Date Notified: 01/20/24 Time Notified: 07:48 Method of Notification: Answering Service Reason For Visit: ACUTE CARDIOPULMONARY ARREST Diagnosis Discharge Diagnosis (1) Acute kidney injury: Status: Acute Code(s): N17.9 - Acute kidney failure, unspecified (2) Metabolic acidosis: Status: Acute Code(s): E87.20 - Acidosis, unspecified Medications at Discharge Home Medications atorvastatin 40 mg tablet 40 mg PO DAILY 07/21/23 azelaic acid 15 % topical foam 1 applic topical BID 07/21/23 docusate sodium 100 mg capsule (Colace) 100 mg PO BID 07/21/23 duloxetine 30 mg capsule,delayed release 30 mg PO DAILY 07/21/23 ferrous sulfate 325 mg (65 mg iron) tablet 325 mg PO DAILY 07/21/23 fluticasone propionate 50 mcg/actuation nasal spray,suspension (Flonase Allergy Relief) 1 spray intranasal DAILY 07/21/23 methotrexate 2.5 mg/mL oral solution PO 07/21/23 pantoprazole 40 mg tablet,delayed release 40 mg PO DAILY 07/21/23 rivaroxaban 20 mg tablet (Xarelto) 20 mg PO DAILY 07/21/23 sotalol 120 mg tablet 120 mg PO BID 07/21/23 tramadol 50 mg tablet 50 mg PO BID PRN 07/21/23 Hospital Course Procedures 2-D Echocardiogram, ACLS performed, CPR performed, EKG, Intubation, PICC line placement and - (Chest x-ray/CT brain/MRI brain) Summary of Care Provided Minutes Spent on Discharge: 38 Hospital Course: Mrs. Salinas is a 73-year-old white female who presented to the emergency department at [facility] on 01/16/2024 after suffering an acute cardiopulmonary arrest. Her found her unresponsive in a chair after he came back from running a few errands. He called EMS and started CPR after laying her on the floor. When EMS arrived she was unresponsive with no palpable pulse and CPR was continued. An IO was placed and she was given epinephrine. By the time she arrived in the emergency department ROSC had been achieved. She was emergently intubated in the emergency department. Per her at the t leonor of admission, he reported that she had been recently seen at [facility] ER for atrial fibrillation with RVR but was discharged home from the ED after being stabilized. Her reported she had not been complaining of any symptoms prior to him leaving. Vital signs at time of admission after ROSC were temperature of 97.7, heart rate 62, respiratory 24, blood pressure of 73 over is 47, and sats were 96% on mechanical ventilator 100%. Her CBC was overall unremarkable. Coags are slightly abnormal however she has been on Xarelto. Her initial blood gas here showed a pH of 7.26, pCO2 of 34.7, pO2 of 265 with a sat of 100% on mechanical ventilation. Her chemistry panel showed elevated serum creatinine 1.56 which is up some compared to previous labs we have here in our system (baseline appears to be between 1.0 and 1.2), her blood glucose was 313 and her lactic episode was 4.0. Initial troponin was elevated to 82 with a repeat of 1203-1/3 troponin at 5174. Patient was pancultured but not placed on any antibiotics as infection felt unlikely. Cardiology evaluated the patient last evening and recommended an echocardiogram, IV amiodarone and further invasive cardiac workup if patient demonstrates recovery. Patient started having seizure when she went up to the intensive care unit so she was given a loading dose of Keppra and placed on IV Keppra and valproic acid. Kwan rology has been consulted and the EEG is pending. CT of the brain was unremarkable. EKG on admission was A-fib. CT of the brain was suggestive of a possible 7.6 x 5.8 mm calcified meningioma in the posterior inner table of the left frontal bone as well as chronic involutional changes and chest x-ray showed no acute cardiopulmonary process. Echocardiogram was performed on 01/17/2024 and showed an EF of 35% with no regional wall motion abnormalities and global dysfunction with a pulmonary artery systolic pressure of 40 mmHg. EEG was performed on 01/18/2024 and showed evidence of severe diffuse encephalopathy but no seizures or epileptiform discharges were captured. The patient had evidence of myoclonus and a persistent metabolic acidosis. She had shock liver with transaminases in the thousands and steadily worsening renal function. MRI was performed on 01/20/2024 and showed diffuse bright T wave signal in bilateral basal ganglia and thalami consistent with the sequela of a hypoxic ischemia. Neurology evaluated the patient and thought her overall injury was neurologically devastating and her chance for functional meaningful recovery was extremely poor. Cultures were obtained at the time of admission and she was placed on broad-spectrum antibiotics. Her blood cultures were negative, sputum culture was unremarkable but urine culture demonstrated E. coli UTI. Family meeting was held on 01/19/2024 at which time they decided to terminally extubate patient. She was given comfort medications and extubated that evening. She did survive through the night however she was demonstrating tachycardia with significant Cesar-King respirations throughout the evening and intermittent apnea. Hospice was consulted and she was deemed appropriate for IPU admission and discharged to the inpatient hospice unit on 01/20/2024. Discharge diagnoses: Acute cardiopulmonary arrest Acute hypoxic respiratory failure E. coli urinary tract infection Multifactorial shock DOLORES Shock liver Anion gap metabolic acidosis Coagulopathy Toxic/metabolic encephalopathy/anoxic encephalopathy Seizures Leukocytosis NSTEMI A-fib Wide-complex tachycardia Hyperlipidemia GERD Peptic ulcer disease Hypertension Osteoarthritis Morbid obesity Physical Exam Const no apparent distress and well nourished; Negative for average body habitus or healthy appearing Constitutional Narrative: Obese, older, white female, extubated, intermittent Cesar-King respiration, no response to noxious or tactile stimuli General Appearance: comfortable, well kempt and well developed Orientation / Consciousness: comatose Exam Limitations: altered mental status Nutritional Appearance: morbidly obese HEENT normocephalic, head/scalp atraumatic and moist oral mucous membranes Eyes PERRL and conjunctivae normal Eyes Narrative: No scleral icterus Neck no lymphadenopathy and supple Neck Narrative: Neck is short and thick, trachea is midline, no thyroid enlargement appreciated Resp no retractions, no use of accessory muscles and clear to auscultation bilaterally Resp Narrative: intermittent Cesar-King respiration with apnea Auscultation: Negative for rales, rhonchi or wheezes Cardio S1 normal heart sound, S2 normal heart sound, no murmurs, no rub, no gallops and no clicks Cardio Narrative: Irregular irregular rhythm with tachycardia GI normal to inspection, nondistended, normoactive bowel sounds, soft to palpation and non-tender Extremity no clubbing, cyanosis or edema Extremity Narrative: Pedal pulses and radial pulses are both 2+ Skin no rashes or lesions noted, no wounds, skin turgor normal, no jaundice, no petechiae and no mottling Skin Narrative: Right upper extremity PICC in place with dressing clean dry and intact Neuro Neuro Narrative: No response to noxious tactile stimulus Psych Psych Narrative: Unable to assess Weight / BMI Weight Weight: 116.6 kg Body Mass Index (BMI) 41.5 ABG / Lab / Microbiology Data 01/19/24 04:30 01/19/24 04:30 Microbiology: Microbiology 01/17/24 06:15 Blood Culture (Wb) - Left Wrist Blood Culture - Preliminary No growth in 48 hours. 01/17/24 06:15 Blood Culture (Wb) - Left Hand Blood Culture - Preliminary No growth in 48 hours. 01/17/24 06:49 Urine Catheter - Catheter Urine Culture - Final Presumptive E. coli 01/16/24 15:46 Sputum, Induced/Lukens Gram Stain - Final 01/16/24 15:46 Sputum, Induced/Lukens Respiratory Culture - Final Meaningful Use Info Meaningful Use Meaningful Use Diagnoses (Choose all that apply): None applicable Ischemic Stroke Statin Dosing Therapy Reference: STATIN DOSE THERAPY REFERENCE: * Patients > 75 years receive moderate or high dose statin therapy. * Patients 75 years or YOUNGER should receive HIGH intensity statin dose unless contraindicated. You will be required to document reason for non-treatment if statin daily dose does not meet guidelines. HIGH DOSE STATIN THERAPY DAILY Atorvastatin > than or = to 40 mg Rosuvastatin > than or = to 20 mg Amlodipine + Atorvastatin > than or = to 2.5/40 mg Ezetimibe + Simvastatin 10/80 mg Simvastatin 80mg Discharge Plan Admission Admit Date/Time: 01/16/24 15:44 Primary Reason for Your Visit: Cardiopulmonary arrest Attending Provider: Marlen Ryan Primary Care Provider: Erasto Mata NP Consulting Providers: Xavier Ordoñez; Chas Pagan; Ronald Ghosh; Marcos Gonzalez; Torrey Cason; Justin Merino; Deysi Mckeon; Baljeet De La Torre; Sushila Abel; Karuna Schofield; Amish Martinez; Augustine Moon; Juan Bermudez; Mata Khan; Magdy Good; Eugenia Christianson; Tammie Patiño; Shirley Willams; Gordon Arriaga; Tala Parra; ALISON ELIZONDO; Radha Acosta; Maria Del Carmen Cruz; Esvin Felipe; Brooke Rodgers; Remy Nielson; Niya Loja; Jenna Lowery; Aleksander Ye; Kaitlin Fernández; Nile Rodriguez; Paco Milton; Benjamin Williamson; Hilario Santamaria; Raymond Roland Jacinto; Jed Busby; Espinoza Wolfe; Pedrito Barron; Iesha Ryan; Kyle Becerra; Ana Goldsmith; Andres Flynn; Mele Ansari Jodi; Emelina Estrada; Gale Nevarez COMPLAINT SPECIALIST Discharge Orders/Prescriptions Prescriptions: No Action duloxetine 30 mg capsule,delayed release(DR/EC) 30 mg PO DAILY atorvastatin 40 mg tablet 40 mg PO DAILY azelaic acid 15 % foam 1 applic topical BID sotalol 120 mg tablet 120 mg PO BID Xarelto 20 mg tablet 20 mg PO DAILY Rx Instructions: must administer with evening meal docusate sodium [Colace] 100 mg capsule 100 mg PO BID pantoprazole 40 mg tablet,delayed release (DR/EC) 40 mg PO DAILY fluticasone propionate [Flonase Allergy Relief] 50 mcg/actuation spray,suspension 1 spray intranasal DAILY Rx Instructions: administer into each nostril ferrous sulfate 325 mg (65 mg iron) tablet 325 mg PO DAILY tramadol 50 mg tablet 50 mg PO BID PRN methotrexate 2.5 mg/mL solution PO Referrals / Follow Up: Erasto Mata COMPLAINT SPECIALIST, COMPLAINT SPECIALIST-C [Primary Care Provider] - Disposition Disposition (needs filled in before D/C Order can be placed): Hospice in Medical Facility Charges/Coding Visit Charges Inpatient E&M: 47799 Disch Hosp >30min
[2024-01-20] MEDS: HYDROmorphone 1 MG/ML Syringe IV (16:24)
== END 2024-01-20 16:25 | disposition hospice, inpatient (51) | DRG 280 ==
LOC: ED 15:28 → ICU 15:51
PROVIDERS: Internal Medicine; Admitting Provider Student in an Organized Health Care Education/Training Program; Emergency Provider Emergency Medicine; PCP Nurse Practitioner Primary Care; Visit Provider Internal Medicine
DX: I21.4 Non-ST elevation (NSTEMI) myocardial infarction (principal); J96.01 Acute respiratory failure with hypoxia; K72.00 Acute and subacute hepatic failure without coma; N17.0 Acute kidney failure with tubular necrosis; G92.8 Other toxic encephalopathy; I47.10 Supraventricular tachycardia, unspecified; D68.9 Coagulation defect, unspecified; E87.21 Acute metabolic acidosis; N39.0 Urinary tract infection, site not specified; Z68.41 Body mass index [BMI] 40.0-44.9, adult; R57.9 Shock, unspecified; G93.1 Anoxic brain damage, not elsewhere classified; I48.91 Unspecified atrial fibrillation; G25.3 Myoclonus; E11.9 Type 2 diabetes mellitus without complications; R56.9 Unspecified convulsions; E66.01 Morbid (severe) obesity due to excess calories; I10 Essential (primary) hypertension; K21.9 Gastro-esophageal reflux disease without esophagitis; M19.90 Unspecified osteoarthritis, unspecified site; E78.5 Hyperlipidemia, unspecified; D72.829 Elevated white blood cell count, unspecified; K27.9 Peptic ulcer, site unspecified, unspecified as acute or chronic, without hemorrhage or perforation; Z66 Do not resuscitate; B96.20 Unspecified Escherichia coli [E. coli] as the cause of diseases classified elsewhere; Z79.01 Long term (current) use of anticoagulants; Z79.899 Other long term (current) drug therapy
CPT/HCPCS: 31500; 31720; 36415; 36569; 36600; 51702; 70450; 70551; 71045; 80048; 80053; 80202; 82550; 82803; 82962; 83605; 83735; 84100; 84443; 84478; 84484; 85025; 85610; 87040; 87070; 87086; 87088; 87186; 87205; 93005; 93306; 94002; 94003; 94762; 95819; 97803; 99252; 99285; J7030; J7040; J7050; Q9957; A4216; C8929; G0463